=== PATIENT | male | born 1940 | race Caucasian/White ===

== ENCOUNTER 2018-09-25 16:58 | Emergency (ER) | payer MEDICARE, MEDICAID ==
[~2018-09-25] VITALS: Ht 182.9 cm; Wt 74.8 kg
--- NOTE | 2018-09-25 17:15 | NUR ---
[facility], SENT BY PMD TO EVALUATE MIDDLE CHEST OPEN WOUND- POSSIBLE CELLULITIS. TO ER BED 10, HOOKED TO MONITOR, PROVIDED W WARM BLANKET, AWAITING MD TALBOT.
[2018-09-25] MEDS ORDERED: AMIO100T4 PO (17:22)
[2018-09-25] MEDS ORDERED: MIRT15TA PO (17:22)
[2018-09-25] MEDS ORDERED: CLOP75TA15 PO (17:22)
[2018-09-25] MEDS ORDERED: NA P133E RC (17:22)
[2018-09-25] MEDS ORDERED: CRAN425C6 PO (17:22)
[2018-09-25] MEDS ORDERED: LEVO50TA8 PO (17:22)
[2018-09-25] MEDS ORDERED: ACET-2030 PO (17:22)
[2018-09-25] MEDS ORDERED: MULT-447 PO (17:22)
[2018-09-25] MEDS ORDERED: THIA100T88 PO (17:22)
[2018-09-25] MEDS ORDERED: LEVO25TA7 PO (17:22)
[2018-09-25] MEDS ORDERED: MAGN400O6 PO (17:22)
[2018-09-25] MEDS ORDERED: DEXT15DR6 OP (17:22)
[2018-09-25] MEDS ORDERED: ATOR40TA PO (17:22)
[2018-09-25] MEDS ORDERED: ASPI-605 PO (17:22)
[2018-09-25] MEDS ORDERED: BISA10SU61 RC (17:22)
[2018-09-25] MEDS ORDERED: DOCU100T2 PO (17:22)
[2018-09-25] MEDS ORDERED: TYL2T PO (17:22)
--- NOTE | 2018-09-25 17:28 | NUR ---
DR GOMEZ AT BEDSIDE
--- NOTE | 2018-09-25 18:10 | NUR ---
CALLED DR. GONGORA, NO ANSWER, LEFT MESSAGE ON VOICEMAIL
[2018-09-25 19:05] VITALS: BP 112/71
--- NOTE | 2018-09-25 19:20 | NUR ---
REPORT GIVEN TO LUZ ELENA TRAYLOR FOR NINO
--- NOTE | 2018-09-25 19:33 | NUR ---
CALLED JAYLENE FOR TRANSPORT BACK TO [facility], ETA 2130, TRIP #[id number]
--- NOTE | 2018-09-25 22:18 | NUR ---
REPORT GIVEN TO ROSIBEL NURSE AT [facility], PT LEFT VIA [facility], VSS, NAD NOTED, ALL PPW GIVEN TO AMBULANCE STAFF.
== END 2018-09-25 22:20 ==
LOC: ER 17:10
DX: S21.109A Unspecified open wound of unspecified front wall of thorax without penetration into thoracic cavity, initial encounter (principal); T84.9XXA Unspecified complication of internal orthopedic prosthetic device, implant and graft, initial encounter; F03.90 Unspecified dementia, unspecified severity, without behavioral disturbance, psychotic disturbance, mood disturbance, and anxiety; I10 Essential (primary) hypertension; I48.91 Unspecified atrial fibrillation; Z95.1 Presence of aortocoronary bypass graft; Z79.82 Long term (current) use of aspirin; X58.XXXA Exposure to other specified factors, initial encounter; Y93.89 Activity, other specified; Y92.89 Other specified places as the place of occurrence of the external cause; Y99.8 Other external cause status

== ENCOUNTER 2019-11-26 12:13 | Inpatient (IN) | payer MEDICARE, OTHER ==
[~2019-11-26] VITALS: Ht 180.3 cm; Wt 78.9 kg
[~2019-11-26 12:13] MED LIST: ACET-2030 PO; AMIO100T4 PO; ASPI-605 PO; ATOR40TA PO; BISA10SU61 RC; CLOP75TA15 PO; CRAN425C6 PO; DEXT15DR6 OP; DOCU100T2 PO; LEVO25TA7 PO; LEVO50TA8 PO; MAGN400O6 PO; MIRT15TA PO; MULT-447 PO; NA P133E RC; THIA100T88 PO; TYL2T PO
[2019-11-26] MEDS ORDERED: ACETAMINOPHEN 650 MG/SUPP.RECT RC ONE (12:52)
[2019-11-26 12:58] LABS: BASOPHILS % (AUTO) 0.1 % (0.0-2.0); HEMATOCRIT 42 % (39-51); HEMOGLOBIN 13.9 g/dL (13.5-17.5); LYMPHOCYTES # (AUTO) 0.4 /CMM (0.8-4.8); LYMPHOCYTES % (AUTO) 5.9 % (20.0-44.0); MEAN CORPUSCULAR HGB CONC 34 g/dl (31.0-36.0); MEAN CORPUSCULAR VOLUME 90 fL (80-96); MONOCYTES # (AUTO) 0.3 /CMM (0.1-1.30); MONOCYTES % (AUTO) 3.7 % (2.0-12.0); NEUTROPHILS # (AUTO) 6.2 /CMM (1.8-8.9); NEUTROPHILS % (AUTO) 90.3 % (43.0-81.0); PLATELET COUNT (AUTO) 110 /CMM (150-450); RED BLOOD CELL COUNT(AUTO) 4.64 MIL/uL (4.5-6.0); WHITE BLOOD COUNT (AUTO) 6.9 K/uL (4.3-11.0)
--- NOTE | 2019-11-26 13:01 | NUR ---
[facility]RA FROM SNF TO ER BED 5. AAOX1. BREATHING EVEN ADN UNLABORED BUT NOTED WITH 02 SAT @ 89% ON RA. PLACED ON O2 VIA NC @ 6LPM SATTING @ 96%. BEDBOUND. BROUGHT IN FOR FEVER AND SOB. RECTAL TEMP NOTED @ 103.9. WAS AT THE BEDSIDE FOR EVAL. ORDERS RECEIVED NOTED AND CARRIED OUT. IV LINE OBTAINED ON LFA 20G. BLOOD DRAWN AND SENT TO LAB.
[2019-11-26 13:14] LABS: ALANINE AMINOTRANSFERASE 27 U/L (12-78); ALBUMIN 3.3 g/dL (3.4-5.0); ALKALINE PHOSPHATASE 96 U/L (46-116); ASPARTATE AMINOTRANSFERASE 35 U/L (15-37); BILIRUBIN,DIRECT 0.3 mg/dL (0.0-0.2); BILIRUBIN,TOTAL 0.8 mg/dL (0.2-1.0); CALCIUM, SERUM 8.9 mg/dL (8.5-10.1); CARBON DIOXIDE 23 mmol/L (21-32); CHLORIDE 110 mmol/L (98-107); CREATININE 1.2 mg/dL (0.6-1.3); GLUCOSE 169 mg/dL (74-106); POTASSIUM 3.2 mmol/L (3.5-5.1); SODIUM SERUM 145 mmol/L (136-145); UREA NITROGEN, BLOOD 37 mg/dL (7-18)
[2019-11-26] MEDS ORDERED: PIPERACILLIN /TAZOBACTAM 3.375 G in IV D5W 50 ML IV ONE (13:30)
[2019-11-26] MEDS ORDERED: VANCOMYCIN 1 GM in IV D5W 250 ML IV ONE (13:30)
--- NOTE | 2019-11-26 13:41 | NUR ---
PAGED MENDOZA FOR DR. WHARTON
--- NOTE | 2019-11-26 13:48 | NUR ---
COVID SWAB DONE AND SENT TO LAB
--- NOTE | 2019-11-26 13:55 | NUR ---
NURSING NUCLEAR CONTROL ROOM OPERATOR CALLED, PT GOING TO [phone]
--- NOTE | 2019-11-26 14:00 | NUR ---
XRAY AT BEDSIDE
--- NOTE | 2019-11-26 14:27 | NUR ---
COVID TEST PCR GOING TO BED 101 TELE
[2019-11-26 14:33] LABS: BILIRUBIN,URINE MODERATE (NEGATIVE); BLOOD, URINE Large Ery/uL (NEGATIVE); COLOR,URINE Yellow (YELLOW); KETONES,URINE Trace (NEGATIVE); LEUKOCYTE ESTERASE ,URINE Small (NEGATIVE); NITRITE, URINE Negative (NEGATIVE); PH,URINE 8.5 (5.0-8.0); PROTEIN,URINE >=300 mg/dl (NEGATIVE); UGLUCOSE Negative (NEGATIVE)
[2019-11-26 14:37] LABS: APPEARANCE,URINE CLOUDY (CLEAR)
[2019-11-26 14:38] LABS: BACTERIA,URINE Many /HPF (None Seen); RBC,URINE 51-80 /HPF (0-2); SQUAMOUS EPITHELIAL CELL,UR Few /HPF (None Seen); WBC,URINE TOO NUMEROUS TO COUN /HPF (0-3)
--- NOTE | 2019-11-26 14:45 | NUR ---
REPORT GIVEN TO LAYTON GALARZA FOR NINO.
--- NOTE | 2019-11-26 14:54 | NUR ---
PT TRANPORTED TO UNIT ON [facility] WITH EMT AT RN AT BEDSIDE W/ ACLS PROTOCOL. NAD NOTED DURING TRANSPORT.
--- NOTE | 2019-11-26 15:00 | NUR ---
TELE EN NOTES RECEIVED PATIENT FROM ER WITH BP81/61, TEMP 99.2 O2 97% HR 89. ON 6 L NASAL CANNULA. NO SOB OR PAIN NOTED AT THIS MOMENT. ON ISOLATION POSSIBLE COVID-19( DROPLET). RIGHT HAND #18 SALINE CHACHO PATENT. CALL LIGHT WITHIN REACH BED AT THE LOWEST POSITION LOCKED. WILL CONTINUE TO MONITOR. Addendum: 11/26/19 at 1523 by HEAVEN LIMA RN SCRIBING MACHINE OPERATOR NOTES
--- NOTE | 2019-11-26 15:30 | NUR ---
CLOTH STRETCHER NOTES NOTED FISTULA ON RIGHT HAND.
[2019-11-26 16:00] VITALS: BP 107/60
[2019-11-26] MEDS ORDERED: ASCO-352 PO (16:36)
[2019-11-26] MEDS ORDERED: QUERCETIN PO (16:36)
[2019-11-26] MEDS ORDERED: CHOL100040 PO (16:36)
--- NOTE | 2019-11-26 16:47 | NUR ---
PILLOWCASE MAKER NOTES NOTIFIED DR WHARTON ABOUT THE BP LEVEL81/61. PER DR WHARTON GIVE NS 1L BOLUS.
[2019-11-26] MEDS ORDERED: IV NS 0.9% 1,000 ML IV ONE ×2 (17:00→17:30)
--- NOTE | 2019-11-26 17:24 | NUR ---
HYDROGEOLOGY PROFESSOR NOTES CALLED PHARMACY FOR IV BOLUS VERIFICATION AND THEY INFORMED WILL BE VERIFIED.
[2019-11-26] MEDS ORDERED: IV NS 0.9% 1,000 ML IV PRN (17:30)
--- NOTE | 2019-11-26 17:48 | NUR ---
MERCHANDISING SPECIALIST NOTES 1BAG OF NS 1000 ML/HR GIVEN TO THE PATIENT ONCE.
[2019-11-26] MEDS ORDERED: MAG HYDROX/AL HYDROX/SIMETH 30 ML UDC PO PRN (18:00)
[2019-11-26] MEDS ORDERED: ONDANSETRON HCL/PF 4 MG/2 ML VIAL IVP PRN (18:00)
[2019-11-26] MEDS ORDERED: MAGNESIUM HYDROXIDE 30 ML UDC PO PRN (18:00)
[2019-11-26] MEDS ORDERED: HYDROCODONE/APAP 5/325MG TABLET PO PRN (18:00)
[2019-11-26] MEDS ORDERED: ACETAMINOPHEN 325 MG TABLET PO PRN (18:00)
[2019-11-26] MEDS ORDERED: ZOLPIDEM TARTRATE 5 MG TABLET PO PRN (18:00)
[2019-11-26] MEDS ORDERED: Z GUARD REMEDY 2 OZ OINT TP PRN (18:00)
[2019-11-26] MEDS: ENOXAPARIN SODIUM 40 MG/0.4 ML DISP.SYRIN SQ SCH (18:07)
--- NOTE | 2019-11-26 18:47 | NUR ---
RN CARDIAC NOTES CRITICAL LAB LACTIC ACID NOTIFIED DR WHARTON ABOUT LACTIC ACID OF 2.5 REPORTED BY LAB.
--- NOTE | 2019-11-26 18:53 | NUR ---
SWIMMING POOL INSTALLER AND SERVICER NOTES DR WHARTON AWARE OF CRITICAL LACTIC ACID OF 2.5.
--- NOTE | 2019-11-26 18:56 | NUR ---
COMMERCIAL LOAN REVIEWER NOTES PATIENT IN BED COMFORTABLE CONFUSED. ON PENDING COVID DROPLET ISOLATION. NS 1000 ML BOLUS GIVEN FOR HYPOTENSION. CALLED SON JAYMIE AND UPDATED HER ABOUT HIS STATUES. IV SITE PATENT. NO SOB OR DISCOMFORT AT THIS TIME. CALL LIGHT WITHIN REACH. REPORT GIVEN TO AERIAL PLANTING AND CULTIVATION MANAGER NURSE FOR NINO.
--- NOTE | 2019-11-26 19:50 | NUR ---
RN OPENING NOTE RECEIVED PATIENT IN BED RESTING EYE CLOSED CONFUSED ON PENDING FOR COVID 19 TEST,ON 6L OXYGEN VIA NASAL CANNULA, O2:96% NO SOB NOT ACUTE DISTRESS AT THIS TIME,IV SITE IS ON LEFT ARM AND LEFT HAND INTACT PATENT,IMPALEMENT SAFETY MEASURE,BED ALARM IS ON,BED IN LOW POSITION,SPOKE WITH SON JAYMIE UPDATED HIS STATUS CONTINUE TO MONITOR
[2019-11-26 20:00] VITALS: BP 115/63
[2019-11-26] MEDS: MEROPENEM 500 MG in IV NS 0.9% 50 ML IV SCH (21:08)
[2019-11-27] VITALS: BP 112/60
[2019-11-27] MEDS: VANCOMYCIN 1 GM in IV D5W 250 ML IV SCH ×2 (01:49→14:15)
[2019-11-27 04:00] VITALS: BP 103/60
--- NOTE | 2019-11-27 04:00 | NUR ---
RN NOTE TITRATED OXYGEN TO 5L/MIN VIA NASAL CANNULA 02:95% CONTINUE TO MONITOR.
[2019-11-27] MEDS: MEROPENEM 500 MG in IV NS 0.9% 50 ML IV SCH ×3 (04:19→21:10)
[2019-11-27 06:24] LABS: BASOPHILS % (AUTO) 0.6 % (0.0-2.0); HEMATOCRIT 38 % (39-51); HEMOGLOBIN 12.6 g/dL (13.5-17.5); LYMPHOCYTES # (AUTO) 0.6 /CMM (0.8-4.8); LYMPHOCYTES % (AUTO) 12.6 % (20.0-44.0); MEAN CORPUSCULAR HGB CONC 33 g/dl (31.0-36.0); MEAN CORPUSCULAR VOLUME 90 fL (80-96); MONOCYTES # (AUTO) 0.4 /CMM (0.1-1.30); MONOCYTES % (AUTO) 7.7 % (2.0-12.0); NEUTROPHILS # (AUTO) 3.9 /CMM (1.8-8.9); NEUTROPHILS % (AUTO) 79.1 % (43.0-81.0); PLATELET COUNT (AUTO) 95 /CMM (150-450); RED BLOOD CELL COUNT(AUTO) 4.24 MIL/uL (4.5-6.0); WHITE BLOOD COUNT (AUTO) 4.9 K/uL (4.3-11.0)
--- NOTE | 2019-11-27 06:48 | NUR ---
RN CLOSING NOTE PATIENT REMAINS ON ALERT CONFUSED,DNR,ON 5L OXYGEN VIA NASAL CANNULA O2:96% NO SOB NOT ACUTE DISTRESS NOTED ON R/O FOR COVID RESULT STILL PENDING IV SITE IS ON LEFT HAND AND LEFT FOREARM INTACT PATENT,ALL DUE MEDS GIVEN MD ORDERED,KEPT CLEAN AND DRY ALL THE TIME,ENDORSE NEXT COMING SHIFT FOR CONTINUATION OF CARE.
[2019-11-27 07:04] LABS: CALCIUM, SERUM 8.4 mg/dL (8.5-10.1); MAGNESIUM 2.3 mg/dL (1.8-2.4); PHOSPHORUS 2.8 mg/dL (2.5-4.9); POTASSIUM 3.2 mmol/L (3.5-5.1); THYROID STIMULATING HORMONE 1.353 uIU/mL (0.358-3.74)
--- NOTE | 2019-11-27 07:30 | NUR ---
TELE/RN OPENING NOTES Patient resting in bed, A&O 1, confused, frequently reoriented. No s/s of pain/discomfort at this time. Breathing even and non-labored on 5L via NC. No respiratory or cardiac distress noted. On tele monitor, reading SR 74. IV access noted on L hand #22 gauge and L forearm #18 gauge, both patent and intact, and flushing well. No s/s of infiltration, bleeding, or infection noted on both sites. Sensation from all peripheral extremities intact. Fall precautions maintained. Will continue to monitor patient throughout shift.
[2019-11-27 08:00] VITALS: BP 98/51
[2019-11-27] MEDS: ASPIRIN 81 MG TAB.CHEW PO SCH (08:11)
[2019-11-27] MEDS: PANTOPRAZOLE 40 MG TABLET.DR PO SCH (08:11)
--- NOTE | 2019-11-27 09:04 | NUR ---
WOUND CARE CONSULT: REVIEWED CHART, NURSING DOCUMENTATION AND PHOTOS WHICH INDICATE REDNESS TO PERINEAL AREA, MULTIPLE AREAS OF DISCOLORATION, PRESENT ON ADMISSION. CURRENT HENRIK SCORE IS 13. RECOMMENDATIONS MADE FOR SKIN PROTECTION. DISCUSSED WITH NURSING STAFF. PT IS INCONTINENT. WILL SEE PRN. Kamala Beltran IN AGREEMENT WITH PLAN OF CARE. Addendum: 11/27/19 at 0908 by ANTOINE BAUER WNDNU PT IS ON [facility].
[2019-11-27] MEDS: POTASSIUM CHLORIDE 20 MEQ TAB.PRT.SR PO SCH ×2 (10:12→11:05)
[2019-11-27] MEDS: DEXAMETHASONE SOD PHOSPHATE 10 MG/ML VIAL IV SCH (11:06)
[2019-11-27 12:00] VITALS: BP 94/53
--- NOTE | 2019-11-27 12:35 | NUR ---
TELE/RN NOTES Justin RN called, stating patient is positive for covid. Notified Dr. Robb.
--- NOTE | 2019-11-27 12:51 | NUR ---
relayed to dr. lane and oneyda patient covid positive no new orders.
[2019-11-27 16:00] VITALS: BP 102/59
[2019-11-27] MEDS: CLOTRIMAZOLE 1% 15 GM TUBE TP SCH (16:06)
--- NOTE | 2019-11-27 18:19 | NUR ---
TELE/RN CLOSING NOTES Patient resting in bed and remained stable throughout shift, A&O x 1, afebrile, no respiratory distress noted. Tolerating supplemental oxygen via NC at 5 L, saturating at 94-97%. On tele monitor, reading SR 81. No cardiac distress noted. No complaints of pain and discomfort throughout shift. IV accesses on R hand #22 and R FA #18 remain patent and intact, and flushing well. No s/s of infection, bleeding, infiltration noted on sites. YVON fistula noted. Condom cath in place, draining leonardo urine well. Sensation from all peripheral extremities intact. Fall precautions maintained. Will endorse to maintenance technician 2nd shift nurse.
[2019-11-27] MEDS ORDERED: PIPERACILLIN /TAZOBACTAM 3.375 G in IV D5W 50 ML IV SCH (18:30)
--- NOTE | 2019-11-27 19:46 | NUR ---
RN OPENING NOTES PATIENT RECEIVED RESTING IN BED A/O X 1, CONFUSED. ON 4L OF O2 WITH BREATHING EVEN AND UNLABORED, NO SOB NOTED O2 SAT 95%. NO SIGNS OF ACUTE DISTRESS. NO COMPLAINTS OF PAIN OR DISCOMFORT- NO FACIAL GRIMACING NOTED. CONDOM CATH NOTED AND IN PLACE DRAINING URINE. IV LOCATED ON L HAND #22 AND L FA #18. SAFETY PRECAUTIONS IN PLACE WITH BED IN LOWEST POSITION, CALL LIGHT WITHIN REACH, BREAKS ON, SIDE RAILS UP. WILL CONTINUE TO MONITOR THROUGHOUT THE NIGHT,
[2019-11-27 20:00] VITALS: BP 80/50
[2019-11-27] MEDS ORDERED: IV NS 0.9% 1,000 ML IV ONE (21:00)
--- NOTE | 2019-11-27 21:05 | NUR ---
RN NOTES PATIENTS BP 80/50, RECHECKED BP USING MANUAL BP CUFF. R ARM 75/45 L ARM 78/50. CONTACTED MD WOLF AND ORDERED 1L OF NS 57ML/HR ONCE. ORDERS CARRIED OUT. WILL CONTINUE TO MONITOR THROUGHOUT THE SHIFT.
[2019-11-27] MEDS: ENOXAPARIN SODIUM 40 MG/0.4 ML DISP.SYRIN SQ SCH (21:08)
--- NOTE | 2019-11-27 21:29 | NUR ---
RN NOTES SPOKE TO LIBORIO COON ON THE PHONE ABOUT PATIENT CONDITION. WOULD LIKE TO SPEAK TO MD. WILL ENDORSE TO AM SHIFT.
[2019-11-28] VITALS: BP 92/52
[2019-11-28] MEDS: VANCOMYCIN 1 GM in IV D5W 250 ML IV SCH ×2 (02:18→14:12)
--- NOTE | 2019-11-28 02:40 | NUR ---
0240 DR WOLF MADE AWARE OF CRITICAL PRELIMINARY BLOOD CULTURE RESULT WITH NO ORDER MADE.
[2019-11-28 04:00] VITALS: BP 107/56
[2019-11-28] MEDS: MEROPENEM 500 MG in IV NS 0.9% 50 ML IV SCH ×3 (05:10→21:12)
[2019-11-28 06:32] LABS: BASOPHILS % (AUTO) 0.7 % (0.0-2.0); EOSINOPHILS % (AUTO) 0.1 % (0.0-6.0); HEMATOCRIT 38 % (39-51); HEMOGLOBIN 12.3 g/dL (13.5-17.5); LYMPHOCYTES # (AUTO) 0.7 /CMM (0.8-4.8); LYMPHOCYTES % (AUTO) 20.6 % (20.0-44.0); MEAN CORPUSCULAR HGB CONC 33 g/dl (31.0-36.0); MEAN CORPUSCULAR VOLUME 91 fL (80-96); MONOCYTES # (AUTO) 0.4 /CMM (0.1-1.30); MONOCYTES % (AUTO) 11.9 % (2.0-12.0); NEUTROPHILS # (AUTO) 2.2 /CMM (1.8-8.9); NEUTROPHILS % (AUTO) 66.7 % (43.0-81.0); PLATELET COUNT (AUTO) 105 /CMM (150-450); RED BLOOD CELL COUNT(AUTO) 4.13 MIL/uL (4.5-6.0); WHITE BLOOD COUNT (AUTO) 3.3 K/uL (4.3-11.0)
--- NOTE | 2019-11-28 06:41 | NUR ---
RN CLOSING NOTES PATIENT RECEIVED RESTING IN BED A/O X 1, CONFUSED. ON STABLE ON RA WITH BREATHING EVEN AND UNLABORED, NO SOB NOTED O2 SAT 94%. NO SIGNS OF ACUTE DISTRESS. NO COMPLAINTS OF PAIN OR DISCOMFORT- NO FACIAL GRIMACING NOTED. CONDOM CATH NOTED AND IN PLACE DRAINING URINE. IV LOCATED ON L HAND #22 AND L FA #18 RUNNING NS @ 75 ML/HR. SAFETY PRECAUTIONS IN PLACE WITH BED IN LOWEST POSITION, CALL LIGHT WITHIN REACH, BREAKS ON, SIDE RAILS UP. ALL NEEDS ATTENDED TO, PATIENT WAS KEPT CLEAN AND DRY. WILL ENDORSE TO ONCOMING SHIFT ABOUT NINO.
[2019-11-28 06:45] LABS: CALCIUM, SERUM 8.7 mg/dL (8.5-10.1); CREATININE 0.9 mg/dL (0.6-1.3); POTASSIUM 3.8 mmol/L (3.5-5.1)
[2019-11-28] MEDS ORDERED: IV D5/0.45 NACL 1,000 ML IV PRN (07:23)
--- NOTE | 2019-11-28 07:30 | NUR ---
RN TAMMIE Patient received alert oriented x 4, yemeni speaking only. Counter Intelligence Technician provided during care. No acute distress noted. Kern catheter in place intact and draining to gravity. IV site on right antecubital intact and infusing well. On room ar with O2 sat 95%. Pt on tele monitor with sinus rhythm noted. No complain of pain or discomfort at this time. All needs will be anticipated and provided to. Will keep safe and comfortable. Will continue to monitor. Addendum: 11/28/19 at 1901 by DOMONIQUE REYES RN RN TAMMIE CLARIFICATION OF DOCUMENTATION Received pt alert, oriented x 1, with episodes of confusion. Not in any acute distress at this time. On condom catheter intact and draining well by gravity. Will keep safe and comfortable. IV site on left hand and forearm intact and infusing well. All needs will be anticipated and provided to. Will continue to monitor.
[2019-11-28 08:00] VITALS: BP 103/58
[2019-11-28] MEDS: ASPIRIN 81 MG TAB.CHEW PO SCH (08:06)
[2019-11-28] MEDS: PANTOPRAZOLE 40 MG TABLET.DR PO SCH (08:06)
[2019-11-28] MEDS: DEXAMETHASONE SOD PHOSPHATE 10 MG/ML VIAL IV SCH (08:07)
[2019-11-28] MEDS: CLOTRIMAZOLE 1% 15 GM TUBE TP SCH ×2 (08:08→12:46)
[2019-11-28] MEDS: DOCUSATE SODIUM 100 MG CAPSULE PO SCH ×2 (10:33→16:37)
[2019-11-28] MEDS: THIAMINE HCL 100 MG TABLET PO SCH (10:33)
[2019-11-28] MEDS: MULTIVITAMINS,THERAGRAN 1 UDTAB TABLET PO SCH (10:33)
[2019-11-28] MEDS: CHOLECALCIFEROL 1,000 UNIT TABLET (VIT D3) PO SCH (10:33)
[2019-11-28] MEDS: AMIODARONE HCL 200 MG TABLET PO SCH (10:34)
[2019-11-28 12:00] VITALS: BP 105/67
[2019-11-28] MEDS: POLYVINYL ALCOHOL 15 ML BOTTLE EACHEYE SCH ×2 (12:46→21:25)
[2019-11-28 16:00] VITALS: BP 103/58
--- NOTE | 2019-11-28 18:52 | NUR ---
RN/TAMMIE Patient in bed. No acute distress noted. Patient on room air, saturating well at 94%. Patient on hall monitor, sinus rhythm noted. Condom catheter in place intact and draining to gravity. IV site on right antecubital intact and infusing well. Patient safety maintained. Call light within reach. Will endorse plan of care to oncoming nurse for continuity of care
--- NOTE | 2019-11-28 19:35 | NUR ---
TELE 1 RN NOTE RECEIVED PATIENT IN BED. ALERT AND ORIENTED X1. PATIENT HAS PERIODS OF CONFUSION, TALKING TO SELF AT TIMES. COME IN QUIET ON BED. FALL RISK. FALL PRECAUTIONS OBSERVED. BED ALARM ON, BED ON LOWEST POSITION AND LOCKED. FREQUENT ROUNDINGS INITIATED FOR SAFETY. ISOLATION PRECAUTIONS FOR POSITIVE COVID 19. ON IVF INFUSING AT 50CC PER HOUR ON LEFT FOREARM VIA IV PUMP. NO SIGNS AND SYMPTOMS OF INFILTRATION NOTED. CALL LIGHT WITHIN REACH. NEEDS ANTICIPATED.
[2019-11-28 20:00] VITALS: BP 103/45
[2019-11-28] MEDS: ENOXAPARIN SODIUM 40 MG/0.4 ML DISP.SYRIN SQ SCH (21:14)
[2019-11-28] MEDS: MIRTAZAPINE 15 MG TABLET PO SCH (22:11)
[2019-11-28] MEDS: ATORVASTATIN 40 MG TABLET PO SCH (22:11)
[2019-11-29] VITALS: BP 103/57
--- NOTE | 2019-11-29 01:00 | NUR ---
TELE1 RN NOTES SOUND ASLEEP,KEPT WARM AND COMFORTABLE.
[2019-11-29] MEDS: VANCOMYCIN 1 GM in IV D5W 250 ML IV SCH ×2 (01:26→13:33)
[2019-11-29 04:10] VITALS: BP 97/55
[2019-11-29] MEDS: POLYVINYL ALCOHOL 15 ML BOTTLE EACHEYE SCH ×3 (04:45→21:13)
[2019-11-29] MEDS: MEROPENEM 500 MG in IV NS 0.9% 50 ML IV SCH ×2 (04:45→13:16)
--- NOTE | 2019-11-29 06:14 | NUR ---
TELE 1 RN NOTE PATIENT IS RESTING COMFORTABLY IN BED. NO SOB, PT IS AFEBRILE. CONDOM CATH DRAINS WELL. REMAINS CALM AND QUIET IN BED. ABX INFUSED, NO ADVERSE REACTION NOTED. STILL HAS EPISODES OF CONFUSION, NEEDS FREQUENT REORIENTATION. CALL LIGHT WITHIN REACH. BED IS LOCKED AND IN LOWEST POSITION WITH BED ALARM ON. NEEDS ATTENDED.
[2019-11-29 07:15] LABS: BASOPHILS % (AUTO) 0.1 % (0.0-2.0); HEMATOCRIT 28 % (39-51); LYMPHOCYTES # (AUTO) 0.8 /CMM (0.8-4.8); LYMPHOCYTES % (AUTO) 20.8 % (20.0-44.0); MEAN CORPUSCULAR HGB CONC 32 g/dl (31.0-36.0); MEAN CORPUSCULAR VOLUME 91 fL (80-96); MONOCYTES # (AUTO) 0.5 /CMM (0.1-1.30); MONOCYTES % (AUTO) 13.1 % (2.0-12.0); NEUTROPHILS # (AUTO) 2.4 /CMM (1.8-8.9); PLATELET COUNT (AUTO) 92 /CMM (150-450); RED BLOOD CELL COUNT(AUTO) 3.05 MIL/uL (4.5-6.0); WHITE BLOOD COUNT (AUTO) 3.7 K/uL (4.3-11.0)
[2019-11-29 07:21] LABS: CREATININE 0.6 mg/dL (0.6-1.3)
--- NOTE | 2019-11-29 07:30 | NUR ---
Received patient in stable condition on O2 3L via NC. Patient is confused at base line. Will continue to monitor
[2019-11-29 07:38] LABS: CALCIUM, SERUM 5.8 mg/dL (8.5-10.1); POTASSIUM 2.7 mmol/L (3.5-5.1)
[2019-11-29 08:00] VITALS: BP 130/72
[2019-11-29] MEDS ORDERED: Potassium Chloride 20 MEQ in IV D5W 1,000 ML IV ONE (08:00)
[2019-11-29] MEDS: ASCORBIC ACID 500 MG TABLET PO SCH (08:19)
[2019-11-29] MEDS: CHOLECALCIFEROL 1,000 UNIT TABLET (VIT D3) PO SCH (08:19)
[2019-11-29] MEDS: THIAMINE HCL 100 MG TABLET PO SCH (08:19)
[2019-11-29] MEDS: LEVOTHYROXINE SODIUM 50 MCG TABLET PO SCH (08:20)
[2019-11-29] MEDS: AMIODARONE HCL 200 MG TABLET PO SCH (08:20)
[2019-11-29] MEDS: DOCUSATE SODIUM 100 MG CAPSULE PO SCH ×2 (08:20→17:42)
[2019-11-29] MEDS: DEXAMETHASONE SOD PHOSPHATE 10 MG/ML VIAL IV SCH (08:20)
[2019-11-29] MEDS: MULTIVITAMINS,THERAGRAN 1 UDTAB TABLET PO SCH (08:20)
[2019-11-29] MEDS: PANTOPRAZOLE 40 MG TABLET.DR PO SCH (08:20)
[2019-11-29] MEDS: POTASSIUM CL. PREMIX PERIPHER. 50 ML IV SCH ×6 (08:26→16:12)
[2019-11-29] MEDS ORDERED: Medication Not On Formulary EA (Cranberry Extract (Cranberry) 850 MG) PO SCH (09:00)
[2019-11-29] MEDS ORDERED: ASPIRIN 81 MG TAB.CHEW PO SCH (09:00)
[2019-11-29] MEDS ORDERED: CLOPIDOGREL BISULFATE 75 MG TABLET PO SCH ×2 (09:00)
[2019-11-29] MEDS: CLOTRIMAZOLE 1% 15 GM TUBE TP SCH ×2 (09:48→17:42)
[2019-11-29] MEDS ORDERED: POTASSIUM CL. PREMIX PERIPHER. 50 ML IV SCH (10:00)
[2019-11-29] MEDS ORDERED: Potassium Chloride 20 MEQ in IV D5W 1,000 ML IV SCH (11:30)
[2019-11-29 12:00] VITALS: BP 124/70
--- NOTE | 2019-11-29 15:00 | NUR ---
O2 tartrated to 2.5 L. Patient tolerated well .
[2019-11-29 16:00] VITALS: BP 123/69
[2019-11-29 18:45] LABS: HEMOGLOBIN 12.8 g/dL (13.5-17.5)
--- NOTE | 2019-11-29 18:48 | NUR ---
Patient awake , sitting in bed with no distress noted. On O2 2.5 L via Nasal canula. Low potassium level of 2.7 replaced as ordered. IV lines intact and patent and Potassium/D5W infusing as ordered. Patient kept clean and dry , turned and reposition Q2 hr. Condom cath in place; 850 ml clear yellow urine output. Patient noted with increased appetite. All needs attende. Will endorse to next shift for NINO
--- NOTE | 2019-11-29 19:45 | NUR ---
TELE1 RN NOTES RECEIVED ON BED A/O X1,CONFUSED,TALKING TO SELF AT TIMES.BREATHING REGULAR,NOT IN ANY FORM OF DISTRESS.O2 SAT 98% ON 2.5L,SALINE LOCK LEFT FOREARM INTACT AND PATENT.WITH CONDOM CATH IN PLACE DRAINING YELLOWISH OUTPUT.ISOLATION PRECAUTION FOR COVID POSITIVE ON 11/25.PRESENT IVF WITH POTASSIUM INFUSING WELL X 1 LITER.REPOSITION PER PROTOCOL.WILL CONTINUE TO MONITOR STATUS.DNR STATUS.
[2019-11-29] MEDS: CEFTRIAXONE 1 G in IV D5W 50 ML IV SCH (19:50)
[2019-11-29 20:00] VITALS: BP 103/71
--- NOTE | 2019-11-29 20:00 | NUR ---
TELE1 RN NOTES STARTED ON ROCEPHINE 1GM IVPB FOR UTI WITH ORDER.
[2019-11-29] MEDS ORDERED: ENOXAPARIN SODIUM 40 MG/0.4 ML DISP.SYRIN SQ SCH (21:00)
[2019-11-29] MEDS: MIRTAZAPINE 15 MG TABLET PO SCH (21:13)
[2019-11-29] MEDS: ATORVASTATIN 40 MG TABLET PO SCH (21:13)
--- NOTE | 2019-11-29 22:00 | NUR ---
TELE1 RN NOTES SON NAME JAYMIE CALLED,MADE UPDATE WITH PATIENT STATUS.
[2019-11-30] VITALS: BP 109/70
[2019-11-30] MEDS: VANCOMYCIN 1 GM in IV D5W 250 ML IV SCH ×2 (02:37→14:33)
[2019-11-30] MEDS: POLYVINYL ALCOHOL 15 ML BOTTLE EACHEYE SCH ×3 (04:48→22:36)
[2019-11-30 04:56] VITALS: BP 108/56
[2019-11-30 06:24] LABS: HEMATOCRIT 34 % (39-51); HEMOGLOBIN 10.9 g/dL (13.5-17.5); LYMPHOCYTES # (AUTO) 0.5 /CMM (0.8-4.8); LYMPHOCYTES % (AUTO) 9.2 % (20.0-44.0); MEAN CORPUSCULAR HGB CONC 32 g/dl (31.0-36.0); MEAN CORPUSCULAR VOLUME 93 fL (80-96); MONOCYTES # (AUTO) 0.5 /CMM (0.1-1.30); MONOCYTES % (AUTO) 9.5 % (2.0-12.0); NEUTROPHILS # (AUTO) 4.5 /CMM (1.8-8.9); NEUTROPHILS % (AUTO) 81.3 % (43.0-81.0); PLATELET COUNT (AUTO) 125 /CMM (150-450); RED BLOOD CELL COUNT(AUTO) 3.64 MIL/uL (4.5-6.0); WHITE BLOOD COUNT (AUTO) 5.6 K/uL (4.3-11.0)
--- NOTE | 2019-11-30 06:38 | NUR ---
WARD ATTENDANT NOTES MORNING CARE RENDERED BY LATRELL FINCH TOLERATED WELL.IVF INFUSING WELL AT 50ML/HR RATE,TO CONSUME,IN NO ACUTE DISTRESS.WILL ENDORSE TO DAY NURSE FOR NINO.
--- NOTE | 2019-11-30 07:30 | NUR ---
RN OPENING NOTE: Received patient in bed and asleep. Isolation precautions in place for covid. On cont. o2 via NC @ 2.5lpm and being tolerated well, saturation at 94%. No SOB and not in respiratory distress. Tele monitor showing sinus rhythm @ 70s. IV site clean, dry, patent and intact. No pain noted on patient. Condom catheter in place and draining yellow urine. Call light in reach. Bed locked, low and at semi-church's position. Side rails up x3. Safety ensured and observed. Will continue to monitor.
[2019-11-30 08:00] VITALS: BP 110/64
[2019-11-30] MEDS: LEVOTHYROXINE SODIUM 50 MCG TABLET PO SCH (08:20)
[2019-11-30] MEDS: PANTOPRAZOLE 40 MG TABLET.DR PO SCH (08:20)
[2019-11-30 08:35] LABS: ABG BASE EXCESS -3.5 mmol/L; ABG PCO2 21.9 mmHg (35.0-45.0); ABG PH 7.522 (7.350-7.450); ABG PO2 86.4 mmHg (75.0-100.0); AaDO2 87.4 mmHg; COHb 0.2 % (0.5-1.5); MetHb 0.3 % (0.0-1.5); O2Hb 96.5 % (94.0-97.0); SITE, ABG Right Radial; VENT MODE, BG NC 2 L
[2019-11-30] MEDS: THIAMINE HCL 100 MG TABLET PO SCH (09:16)
[2019-11-30] MEDS: ASCORBIC ACID 500 MG TABLET PO SCH (09:16)
[2019-11-30] MEDS: AMIODARONE HCL 200 MG TABLET PO SCH (09:16)
[2019-11-30] MEDS: MULTIVITAMINS,THERAGRAN 1 UDTAB TABLET PO SCH (09:16)
[2019-11-30] MEDS: DOCUSATE SODIUM 100 MG CAPSULE PO SCH ×2 (09:16→16:59)
[2019-11-30] MEDS: CHOLECALCIFEROL 1,000 UNIT TABLET (VIT D3) PO SCH (09:16)
[2019-11-30] MEDS: DEXAMETHASONE SOD PHOSPHATE 10 MG/ML VIAL IV SCH (09:17)
[2019-11-30] MEDS: CLOTRIMAZOLE 1% 15 GM TUBE TP SCH ×2 (09:17→17:25)
[2019-11-30 09:40] LABS: CALCIUM, SERUM 8.5 mg/dL (8.5-10.1); CREATININE 0.8 mg/dL (0.6-1.3); POTASSIUM 4.5 mmol/L (3.5-5.1)
[2019-11-30 12:00] VITALS: BP 112/76
[2019-11-30 16:00] VITALS: BP 91/62
--- NOTE | 2019-11-30 19:20 | NUR ---
RN CLOSING NOTE: Patient remains in bed and asleep. Isolation precautions in place for covid. On cont. o2 via NC @ 2.5lpm and being tolerated well, saturation at 96%. No SOB and not in respiratory distress. Tele monitor showing sinus rhythm @ 60s. IV site clean, dry, patent and intact. No pain noted on patient. Condom catheter in place and draining yellow urine. Call light in reach. Bed locked, low and at semi-church's position. Side rails up x3. Safety ensured and observed. Endorsed to oncoming shift for NINO.
[2019-11-30] MEDS: CEFTRIAXONE 1 G in IV D5W 50 ML IV SCH (19:30)
[2019-11-30 20:00] VITALS: BP 97/58
[2019-11-30] MEDS: MIRTAZAPINE 15 MG TABLET PO SCH (22:36)
[2019-11-30] MEDS: ATORVASTATIN 40 MG TABLET PO SCH (22:36)
[2019-12-01] VITALS: BP 110/67
[2019-12-01 04:00] VITALS: BP 101/62
[2019-12-01] MEDS: POLYVINYL ALCOHOL 15 ML BOTTLE EACHEYE SCH ×3 (04:27→20:15)
--- NOTE | 2019-12-01 06:39 | NUR ---
RN NOTE NO ACUTE CHANGES OBSERVED OVERNIGHT. ALL NEEDS MET AND ATTENDED TO. SAFETY MEASURES IN PLACE. WILL ENDORSE TO MORNING RN FOR CONTINUATION OF CARE.
--- NOTE | 2019-12-01 07:15 | NUR ---
RN OPENING NOTE: Received patient in bed and asleep. Isolation precautions in place for covid. On cont. o2 via NC @ 2.5lpm and being tolerated well, saturation at 97%. No SOB and not in respiratory distress. Tele monitor showing sinus rhythm in the 60s. IV site clean, dry, patent and intact. No pain noted on patient. Condom catheter in place and draining yellow urine. Call light in reach. Bed locked, low and at semi-church's position. Side rails up x3. Safety ensured and observed. Will continue to monitor.
[2019-12-01 07:22] LABS: BASOPHILS % (AUTO) 0.1 % (0.0-2.0); HEMATOCRIT 37 % (39-51); LYMPHOCYTES # (AUTO) 0.9 /CMM (0.8-4.8); LYMPHOCYTES % (AUTO) 9.7 % (20.0-44.0); MEAN CORPUSCULAR HGB CONC 32 g/dl (31.0-36.0); MEAN CORPUSCULAR VOLUME 92 fL (80-96); MONOCYTES # (AUTO) 0.5 /CMM (0.1-1.30); MONOCYTES % (AUTO) 5.9 % (2.0-12.0); NEUTROPHILS # (AUTO) 7.7 /CMM (1.8-8.9); NEUTROPHILS % (AUTO) 84.3 % (43.0-81.0); PLATELET COUNT (AUTO) 135 /CMM (150-450); RED BLOOD CELL COUNT(AUTO) 4.05 MIL/uL (4.5-6.0); WHITE BLOOD COUNT (AUTO) 9.1 K/uL (4.3-11.0)
[2019-12-01 07:27] LABS: CALCIUM, SERUM 8.1 mg/dL (8.5-10.1); CREATININE 0.7 mg/dL (0.6-1.3); MAGNESIUM 2.2 mg/dL (1.8-2.4); PHOSPHORUS 3.5 mg/dL (2.5-4.9); POTASSIUM 4.3 mmol/L (3.5-5.1)
[2019-12-01 08:00] VITALS: BP 100/62
[2019-12-01] MEDS: ASCORBIC ACID 500 MG TABLET PO SCH (08:27)
[2019-12-01] MEDS: LEVOTHYROXINE SODIUM 50 MCG TABLET PO SCH (08:27)
[2019-12-01] MEDS: AMIODARONE HCL 200 MG TABLET PO SCH (08:27)
[2019-12-01] MEDS: PANTOPRAZOLE 40 MG TABLET.DR PO SCH (08:27)
[2019-12-01] MEDS: CHOLECALCIFEROL 1,000 UNIT TABLET (VIT D3) PO SCH (08:27)
[2019-12-01] MEDS: MULTIVITAMINS,THERAGRAN 1 UDTAB TABLET PO SCH (08:27)
[2019-12-01] MEDS: DEXAMETHASONE SOD PHOSPHATE 10 MG/ML VIAL IV SCH (08:27)
[2019-12-01] MEDS: THIAMINE HCL 100 MG TABLET PO SCH (08:27)
[2019-12-01] MEDS: DOCUSATE SODIUM 100 MG CAPSULE PO SCH ×2 (08:27→16:43)
[2019-12-01 12:00] VITALS: BP 129/72
[2019-12-01] MEDS: CLOTRIMAZOLE 1% 15 GM TUBE TP SCH ×2 (13:18→16:43)
[2019-12-01 15:57] LABS: C-REACTIVE PROTEIN 1.4 mg/dL (0.0-0.9)
[2019-12-01 16:00] VITALS: BP 104/56
--- NOTE | 2019-12-01 19:05 | NUR ---
RN OPENING NOTES: PATIENT IN BED, AWAKE, AND VERBALLY RESPONSIVE. AAOX1 WITH CONFUSION. ON O2 AT 3 LPM, TOLERATING WELL, O2 SAT >95%. ON SCALEHOUSE ATTENDANT, SHOWING NSR WITH OCCASIONAL PVCs; ASYMPTOMATIC. CONDOM CATH IN PLACE; PATENT AND DRAINING CLEAR YELLOW URINE. PATIENT HAS LEFT HAND G18; C/D/I AND FLUSHING WELL. TKO. CALL LIGHT WITHIN REACH. SAFETY PRECAUTIONS IMPLEMENTED. BED LOCKED, ALARM ON, LOW POSITION. HOB ELEVATED. BILATERAL SIDE RAILS X 3 UP. WILL CONT. TO MONITOR.
--- NOTE | 2019-12-01 19:23 | NUR ---
RN CLOSING NOTE: Patient remains in bed and asleep. Isolation precautions in place for covid. On cont. o2 via NC @ 2.5lpm and being tolerated well, saturation at 98%. No SOB and not in respiratory distress. Tele monitor showing sinus rhythm @ 60s. IV site clean, dry, patent and intact. No pain noted on patient. Condom catheter in place and draining yellow urine. Call light in reach. Bed locked, low and at semi-church's position. Side rails up x3. Safety ensured and observed. Endorsed to oncoming shift for NINO.
[2019-12-01 20:00] VITALS: BP 106/61
[2019-12-01] MEDS: CEFTRIAXONE 1 G in IV D5W 50 ML IV SCH (20:18)
[2019-12-01] MEDS: ATORVASTATIN 40 MG TABLET PO SCH (21:38)
[2019-12-01] MEDS: MIRTAZAPINE 15 MG TABLET PO SCH (21:38)
[2019-12-02] VITALS: BP 98/62
[2019-12-02 04:00] VITALS: BP 101/65
[2019-12-02] MEDS: POLYVINYL ALCOHOL 15 ML BOTTLE EACHEYE SCH ×3 (05:46→21:04)
--- NOTE | 2019-12-02 06:51 | NUR ---
RN CLOSING NOTES: PATIENT IN BED, ASLEEP, EASILY AROUSABLE. REMAINS ON O2 AT 2LPM VIA NC; SPO2 >95%. BREATHING UNLABORED. AFEBRILE THROUGHOUT SHIFT. STABLE CONDITION. ENDORSE TO AM RN FOR CONTINUITY OF CARE.
--- NOTE | 2019-12-02 07:39 | NUR ---
RADIO MECHANIC/TAMMIE OPENING NOTE RECEIVED PT IN BED AWAKE, ALERT AND ORIENTED X1 WITH CONFUSTION. PT IS DNR. PT IS ON TELE MONITORING WITH NORMAL SINUS RHYTHM HR 72 AT THIS MOMENT. PT IS INCONTINENT WITH A CONDOM CATHETER THAT IS INTACT. PT IS ON BED REST WITH PERINEAL REDNESS NOTED. PT IS ON A SOFT DIET. PT HAD A LEFT HAND 18' INTACT, PATENT AND FLUSHING WELL. PT ALSO HAS A RIGHT UPPER ARM FISTULA. PT IS IN STABLE CONDITION AT THIS TIME. PT IS ON OXYGEN 2L VIA N/C SATURATING AT 97% AT THIS TIME. HOB ELEVATED TOLERATED. CALL LIGHT WITHIN REACH AND FUNCTIONING. BED LOCKED AND IN LOWEST POSITION. WILL CONTINUE TO MONITOR AND ASSESS PT.
[2019-12-02 08:00] VITALS: BP 101/65
[2019-12-02] MEDS: PANTOPRAZOLE 40 MG TABLET.DR PO SCH (08:05)
[2019-12-02] MEDS: MULTIVITAMINS,THERAGRAN 1 UDTAB TABLET PO SCH (08:06)
[2019-12-02] MEDS: CHOLECALCIFEROL 1,000 UNIT TABLET (VIT D3) PO SCH (08:06)
[2019-12-02] MEDS: ASCORBIC ACID 500 MG TABLET PO SCH (08:06)
[2019-12-02] MEDS: DOCUSATE SODIUM 100 MG CAPSULE PO SCH ×2 (08:06→16:36)
[2019-12-02] MEDS: THIAMINE HCL 100 MG TABLET PO SCH (08:06)
[2019-12-02] MEDS: LEVOTHYROXINE SODIUM 50 MCG TABLET PO SCH (08:07)
[2019-12-02] MEDS: DEXAMETHASONE SOD PHOSPHATE 10 MG/ML VIAL IV SCH (08:07)
[2019-12-02] MEDS: AMIODARONE HCL 200 MG TABLET PO SCH (08:07)
[2019-12-02] MEDS: CLOTRIMAZOLE 1% 15 GM TUBE TP SCH ×2 (08:09→16:36)
[2019-12-02 10:52] LABS: HEMATOCRIT 36 % (39-51); HEMOGLOBIN 11.6 g/dL (13.5-17.5); LYMPHOCYTES # (AUTO) 0.4 /CMM (0.8-4.8); LYMPHOCYTES % (AUTO) 3.6 % (20.0-44.0); MEAN CORPUSCULAR HGB CONC 33 g/dl (31.0-36.0); MEAN CORPUSCULAR VOLUME 91 fL (80-96); MONOCYTES # (AUTO) 0.3 /CMM (0.1-1.30); NEUTROPHILS % (AUTO) 93.4 % (43.0-81.0); PLATELET COUNT (AUTO) 165 /CMM (150-450); RED BLOOD CELL COUNT(AUTO) 3.91 MIL/uL (4.5-6.0); WHITE BLOOD COUNT (AUTO) 10.7 K/uL (4.3-11.0)
[2019-12-02 11:00] LABS: CALCIUM, SERUM 8.1 mg/dL (8.5-10.1); CREATININE 0.7 mg/dL (0.6-1.3); POTASSIUM 4.2 mmol/L (3.5-5.1)
[2019-12-02 12:00] VITALS: BP 107/65
[2019-12-02 16:00] VITALS: BP 107/66
--- NOTE | 2019-12-02 18:57 | NUR ---
PRIZER HAND/TAMMIE MONITORING PT IS CURRENTLY IN BED, AWAKE, ALERT AND ORIENTED X1 WITH CONFUSION. PT IS ON 2L OF OXYGEN VIA N/C SATURATING AT 96% AT THIS TIME. PT IS IN STABLE CONDITION AT THIS TIME. PT KEPT CLEAN, DRY AND COMFORTABLE THROUGH OUT SHIFT. ALL NEEDS MET WITH HELP OF COURT MESSENGER. SCHEDULED MEDS GIVEN AND TOLERATED WELL. PT TURNED Q2HRS. PT HAS A CONDOM CATH THAT IS INTACT AND DRAINING WELL VIA GRAVITY. PT NOTED WITH VIDAL REDNESS. GOOD VIDAL CARE PROVIDED THROUGH OUT SHIFT. PT IS DNR. PT IS COVID 19 POSITIVE ALL SAFETY MEASURES PROVIDED AND IMPLEMENTED PER FACILITY PROTOCOL. CALL LIGHT WITHIN REACH AND FUNCTIONING. BED LOCKED AND IN LOWEST POSITION. WILL ENDORSE TO NEXT SHIFT NURSE FOR NINO.
--- NOTE | 2019-12-02 19:20 | NUR ---
RN OPENING NOTE RECEIVED PATIENT IN BED RESTING ALERT ORIENTED X1 CONFUSED VERBALLY RESPONSIVE,ON MED SURG,DNR,NO SOB NOT ACUTE DISTRESS NOTED AT THIS TIME,ON 2L OXYGEN VIA NASAL CANNULA, O2:95% ON MONITORING FOR COVID 19 POSITIVE AND DROPLET/CONTACT ISOLATION,IV SITE IS ON LEFT HAND INTACT PATENT,FLUSHED.BED IN LOW POSITON AND BED ALARM IS ON,IMPLEMENT SAFETY MEASURE,CALL LIGHT WITHIN REACH,CONTINUE TO MONITOR.
[2019-12-02] MEDS: CEFTRIAXONE 1 G in IV D5W 50 ML IV SCH (19:57)
[2019-12-02 20:00] VITALS: BP 107/66
[2019-12-02] MEDS: ATORVASTATIN 40 MG TABLET PO SCH (21:06)
[2019-12-02] MEDS: MIRTAZAPINE 15 MG TABLET PO SCH (21:07)
[2019-12-03] VITALS: BP 100/60
[2019-12-03 04:00] VITALS: BP 101/60
[2019-12-03] MEDS: POLYVINYL ALCOHOL 15 ML BOTTLE EACHEYE SCH ×2 (04:00→12:43)
--- NOTE | 2019-12-03 06:45 | NUR ---
RN CLOSING NOTE PATIENT REMAINS ON ALERT ORIENTED X1 CONFUSED NO SOB NOT ACUTE DISTRESS NOTED HE IS ON MONITORING FOR COVID 19 POSITIVE DROPLET/CONTACT ISOLATION,DNR ON 2L OXYGEN VIA NASAL CANNULA,O2:94%,NO PAIN NO DISCOMFORT NOTED,IV SITE IS ON LEFT HAND INTACT PATENT,ALL DUE MEDS GIVEN MD ORDERED,KEPT CLEAN AND DRY ALL THE TIME,ALL NEEDS ATTENDED,ENDORSE NEXT COMING SHIFT FOR CONTINUATION OF CARE
[2019-12-03 08:00] VITALS: BP 91/51
--- NOTE | 2019-12-03 08:15 | NUR ---
RN OPENING NOTE RECEIVED PATIENT IN BED RESTING ALERT ORIENTED X1 AND CONFUSED BUT VERBALLY RESPONSIVE,ON MED SURG. NO SOB NOT ACUTE DISTRESS NOTED . PT IS ON 2L OXYGEN VIA NASAL CANNULA, 95% ON MONITORING FOR COVID 19 POSITIVE AND DROPLET/CONTACT ISOLATION,IV SITE IS ON LEFT HAND INTACT AND FLUSHING WELL BED IS IN LOWEST POSITION AND BED ALARM IS ON. SAFETY MEASUREMENTS ARE IMPLEMENT.CALL LIGHT WITHIN REACH. WILL CONTINUE TO MONITOR.
[2019-12-03] MEDS: THIAMINE HCL 100 MG TABLET PO SCH (09:21)
[2019-12-03] MEDS: CHOLECALCIFEROL 1,000 UNIT TABLET (VIT D3) PO SCH (09:21)
[2019-12-03] MEDS: ASCORBIC ACID 500 MG TABLET PO SCH (09:22)
[2019-12-03] MEDS: MULTIVITAMINS,THERAGRAN 1 UDTAB TABLET PO SCH (09:27)
[2019-12-03] MEDS: PANTOPRAZOLE 40 MG TABLET.DR PO SCH (09:27)
[2019-12-03] MEDS: DOCUSATE SODIUM 100 MG CAPSULE PO SCH ×2 (09:27→16:22)
[2019-12-03] MEDS: LEVOTHYROXINE SODIUM 50 MCG TABLET PO SCH (09:27)
[2019-12-03] MEDS: DEXAMETHASONE SOD PHOSPHATE 10 MG/ML VIAL IV SCH (09:28)
[2019-12-03] MEDS: CLOTRIMAZOLE 1% 15 GM TUBE TP SCH ×2 (09:29→16:21)
[2019-12-03] MEDS: AMIODARONE HCL 200 MG TABLET PO SCH (09:32)
[2019-12-03 12:00] VITALS: BP 104/48
[2019-12-03 16:00] VITALS: BP 99/55
--- NOTE | 2019-12-03 16:58 | NUR ---
TAMMIE RN NOTES RECEIVED ORDER THAT PT IS READY TO TRANSFER. AMBULANCA CAME TO TRANSFER TO ANOTHER HOSPITAL
--- NOTE | 2019-12-03 17:47 | NUR ---
TAMMIE RN NOTES GAVE REPORT TO DEMOND IN [facility] IN [place]
--- NOTE | 2019-12-03 17:48 | NUR ---
TAMMIE RN NOTES PT WAS TRANSFERRED IN STABLE CONDITION WITH OXYGEN 2L NC AND VS WNL . SAFETY MEASUREMENTS ARE IMPLEMENTED
== END 2019-12-03 16:45 | DRG 871 ==
LOC: ER 12:19 → TELE 14:24 → TELE1 14:27 → MEDSG1 12-02 11:28
PROVIDERS: ADMIT Student in an Organized Health Care Education/Training Program
DX: A41.89 Other specified sepsis (principal); I21.4 Non-ST elevation (NSTEMI) myocardial infarction; R65.21 Severe sepsis with septic shock; N17.0 Acute kidney failure with tubular necrosis; J96.01 Acute respiratory failure with hypoxia; U07.1 COVID-19; J12.89 Other viral pneumonia; J15.6 Pneumonia due to other Gram-negative bacteria; E44.0 Moderate protein-calorie malnutrition; N39.0 Urinary tract infection, site not specified; I50.22 Chronic systolic (congestive) heart failure; E87.2 Acidosis; E87.0 Hyperosmolality and hypernatremia; E86.0 Dehydration; E78.5 Hyperlipidemia, unspecified; H26.9 Unspecified cataract; I25.10 Atherosclerotic heart disease of native coronary artery without angina pectoris; I48.91 Unspecified atrial fibrillation; F03.90 Unspecified dementia, unspecified severity, without behavioral disturbance, psychotic disturbance, mood disturbance, and anxiety; I73.9 Peripheral vascular disease, unspecified; F32.9 Major depressive disorder, single episode, unspecified; Z66 Do not resuscitate; H52.4 Presbyopia; Z91.041 Radiographic dye allergy status; Z79.02 Long term (current) use of antithrombotics/antiplatelets; Z79.82 Long term (current) use of aspirin; Z95.1 Presence of aortocoronary bypass graft; Z79.01 Long term (current) use of anticoagulants; Z79.899 Other long term (current) drug therapy; Y95 Nosocomial condition; Z86.73 Personal history of transient ischemic attack (TIA), and cerebral infarction without residual deficits; Z87.891 Personal history of nicotine dependence; D64.9 Anemia, unspecified; D69.6 Thrombocytopenia, unspecified; E87.6 Hypokalemia; F09 Unspecified mental disorder due to known physiological condition; D63.8 Anemia in other chronic diseases classified elsewhere; E86.9 Volume depletion, unspecified; B96.4 Proteus (mirabilis) (morganii) as the cause of diseases classified elsewhere
CPT/HCPCS: 36415; 36600; 71045-TC; 80048-TC; 80061-TC; 80076-TC; 80202-TC; 81000-TC; 82040-TC; 82550-TC; 82728-TC; 82803-TC; 83605-TC; 83615-TC; 83735-TC; 84100-TC; 84443-TC; 84484-TC; 85025-TC; 85027-TC; 85378-TC; 85730-TC; 86140-TC; 87040-TC; 87081-TC; 87086-TC; 87186-TC; 92611-TC; 93308-TC; 97110-TC; 97112-TC; 97530-TC; A4216; A4349; G0378; J0696; J1100; J1650; J2185; J2543; J3370; J3480; J3490; J7030; J7040; J7050; J7060; J7070; U0003-CS

== ENCOUNTER 2020-12-30 17:36 | Inpatient (IN) | payer MEDICARE, OTHER ==
[~2020-12-30] VITALS: Ht 167.6 cm; Wt 68.9 kg
[~2020-12-30 17:36] MED LIST changes: +ASCO-352 PO; +CHOL100040 PO; -LEVO25TA7 PO; +MIRT-121 PO; -MIRT15TA PO; +QUERCETIN PO
--- NOTE | 2020-12-30 17:59 | NUR ---
to er bed 4, c/o weakness and weightloss, attached to monitor, aaox2, breathing even and non labored
--- NOTE | 2020-12-30 18:23 | NUR ---
MOVE SHEET SUBMITTED AND CALLED FOR MS BED.
[2020-12-30] MEDS ORDERED: NA PHOS,M-B/NA PHOS,DI-BA 1 EA ENEMA RC PRN (18:30)
[2020-12-30] MEDS ORDERED: ACETAMINOPHEN 325 MG TABLET PO PRN ×2 (18:30)
[2020-12-30] MEDS ORDERED: ONDANSETRON HCL/PF 4 MG/2 ML VIAL IVP PRN (18:30)
[2020-12-30] MEDS ORDERED: MAG HYDROX/AL HYDROX/SIMETH 30 ML UDC PO PRN (18:30)
[2020-12-30] MEDS ORDERED: BISACODYL SUPP (10 MG) 10 MG/SUPP.RECT SUPP.RECT RC PRN (18:30)
[2020-12-30] MEDS ORDERED: ACETAMINOPHEN ES 500 MG TABLET PO PRN (18:30)
[2020-12-30] MEDS ORDERED: Z GUARD REMEDY 2 OZ OINT TP PRN (18:30)
[2020-12-30] MEDS ORDERED: MAGNESIUM HYDROXIDE 30 ML UDC PO PRN ×2 (18:30)
[2020-12-30] MEDS ORDERED: POLY15DR40 EACHEYE (18:47)
[2020-12-30] MEDS ORDERED: PANT20TA2 PO (18:47)
--- NOTE | 2020-12-30 19:14 | NUR ---
covid swab done and sent to lab
--- NOTE | 2020-12-30 19:35 | NUR ---
SHOE COBBLER AT BEDSIDE
--- NOTE | 2020-12-30 19:50 | NUR ---
RN OSTOMY AT BEDSIDE
[2020-12-30 19:58] LABS: HEMOGLOBIN 12.4 g/dL (13.5-17.5); RED BLOOD CELL COUNT(AUTO) 4.17 MIL/uL (4.5-6.0)
[2020-12-30 20:03] LABS: BASOPHILS % (AUTO) 0.5 % (0.0-2.0); EOSINOPHILS % (AUTO) 2.4 % (0.0-6.0); HEMATOCRIT 38 % (39-51); LYMPHOCYTES # (AUTO) 1.1 K/uL (0.8-4.8); LYMPHOCYTES % (AUTO) 19.8 % (20.0-44.0); MEAN CORPUSCULAR HGB CONC 33 g/dl (31.0-36.0); MEAN CORPUSCULAR VOLUME 90 fL (80-96); MONOCYTES # (AUTO) 0.3 K/uL (0.1-1.30); MONOCYTES % (AUTO) 5.7 % (2.0-12.0); NEUTROPHILS # (AUTO) 4.1 K/uL (1.8-8.9); NEUTROPHILS % (AUTO) 71.6 % (43.0-81.0); PLATELET COUNT (AUTO) 123 K/uL (150-450); WHITE BLOOD COUNT (AUTO) 5.8 K/uL (4.3-11.0)
--- NOTE | 2020-12-30 20:03 | NUR ---
BED 109
[2020-12-30 20:07] LABS: CALCIUM, SERUM 8.5 mg/dL (8.5-10.1); CREATININE 0.9 mg/dL (0.6-1.3); POTASSIUM 3.9 mmol/L (3.5-5.1)
[2020-12-30] MEDS ORDERED: IV NS 0.9% 500 ML BAG IV ONE (20:30)
--- NOTE | 2020-12-30 21:08 | NUR ---
GAVE REPORT TO SHELDON TRAYLOR FOR NINO
[2020-12-30 21:10] VITALS: BP 120/68
--- NOTE | 2020-12-30 21:10 | NUR ---
MS RN ADMITTING NOTE PT TRANSPORTED BY [facility] TO UNIT FROM ED AT THIS TIME. RECEIVED REPORT FROM LAYTON ALEJANDRO @ED, A/O X2-3. PT ABLE TO COMMUNICATE NEEDS. NO SOB NOTED, NO C/O PAIN OR ANY APPARENT DISTRESS NOTED. RESPIRATIONS EVEN AND UNLABORED, ACTIVE BOWEL SOUNDS AUSCULTATED THROUGHOUT, ABDOMEN IS NON TENDER. HAS BRUISE IN SCROTUM, SKIN IS WARM TO TOUCH CAPILLARY REFILL < 3 SEC, PULSES PRESENT BILATERALLY, GOOD CIRCULATION NOTED. IV ACCESS NOTED IN LEFT HAND G#22, INTACT, PATENT,AND FLUSHING WELL. PT HAS NO BELONGINGS. ASPIRATION AND SAFETY PRECAUTIONS IN PLACE AND MAINTAINED AT ALL TIMES. BED IN LOWEST LOCKED POSITION, SIDE RAILS UPX2, TABLE AND CALL LIGHT WITHIN REACH. WILL CONTINUE PLAN OF CARE.
--- NOTE | 2020-12-30 21:17 | NUR ---
PT TRANSFERRED TO TAMMIE TO ROOM 109 VIA HOSPITAL PROTOCOL
--- NOTE | 2020-12-30 21:21 | NUR ---
UPDATED PARAS ARMSTRONG RN THAT IS BEING ADMITTED
[2020-12-30] MEDS: POLYVINYL ALCOHOL 15 ML BOTTLE OP SCH (21:46)
[2020-12-30] MEDS: ATORVASTATIN 40 MG TABLET PO SCH (21:58)
[2020-12-30] MEDS: MIRTAZAPINE 15 MG TABLET PO SCH (21:58)
[2020-12-31 03:59] VITALS: BP 120/68
[2020-12-31] MEDS: POLYVINYL ALCOHOL 15 ML BOTTLE OP SCH ×3 (05:38→21:45)
--- NOTE | 2020-12-31 06:30 | NUR ---
MS RN CLOSING NOTE PT AWAKE IN BED AN DIN GOOD CONDITION. WILL ENDORSE TO ONCOMING NURSE
[2020-12-31 06:54] LABS: BASOPHILS % (AUTO) 0.6 % (0.0-2.0); EOSINOPHILS % (AUTO) 3.9 % (0.0-6.0); HEMATOCRIT 36 % (39-51); HEMOGLOBIN 12.3 g/dL (13.5-17.5); LYMPHOCYTES # (AUTO) 1.2 K/uL (0.8-4.8); LYMPHOCYTES % (AUTO) 25.2 % (20.0-44.0); MEAN CORPUSCULAR HGB CONC 34 g/dl (31.0-36.0); MEAN CORPUSCULAR VOLUME 88 fL (80-96); MONOCYTES # (AUTO) 0.3 K/uL (0.1-1.30); MONOCYTES % (AUTO) 7.1 % (2.0-12.0); NEUTROPHILS # (AUTO) 3.1 K/uL (1.8-8.9); NEUTROPHILS % (AUTO) 63.2 % (43.0-81.0); PLATELET COUNT (AUTO) 121 K/uL (150-450); RED BLOOD CELL COUNT(AUTO) 4.07 MIL/uL (4.5-6.0); WHITE BLOOD COUNT (AUTO) 4.8 K/uL (4.3-11.0)
[2020-12-31 07:56] LABS: CALCIUM, SERUM 8.1 mg/dL (8.5-10.1); CREATININE 0.8 mg/dL (0.6-1.3); PHOSPHORUS 3.6 mg/dL (2.5-4.9); POTASSIUM 3.8 mmol/L (3.5-5.1)
[2020-12-31] MEDS: ASCORBIC ACID 500 MG TABLET PO SCH (08:11)
[2020-12-31] MEDS: ASPIRIN EC 81 MG TABLET.DR PO SCH (08:11)
[2020-12-31] MEDS: CLOPIDOGREL BISULFATE 75 MG TABLET PO SCH (08:11)
[2020-12-31] MEDS: THIAMINE HCL 100 MG TABLET PO SCH (08:11)
[2020-12-31] MEDS: LEVOTHYROXINE SODIUM 50 MCG TABLET PO SCH (08:11)
[2020-12-31] MEDS: CHOLECALCIFEROL 1,000 UNIT TABLET (VIT D3) PO SCH (08:11)
[2020-12-31] MEDS: AMIODARONE HCL 200 MG TABLET PO SCH (08:12)
[2020-12-31] MEDS: DOCUSATE SODIUM 100 MG CAPSULE PO SCH ×2 (08:12→16:29)
[2020-12-31] MEDS ORDERED: Medication Not On Formulary EA (Multivitamin With Minerals (One Daily Complete) 1 EACH) PO SCH (09:00)
[2020-12-31] MEDS ORDERED: Medication Not On Formulary EA (Cranberry Extract (Cranberry) 850 MG) PO SCH (09:00)
--- NOTE | 2020-12-31 11:32 | NUR ---
WOUND CARE CONSULT: REVIEWED CHART, NURSING DOCUMENTATION AND PHOTOS WHICH INDICATE SCROTAL INCONTINENCE ASSOCIATED SKIN DAMAGE, PRESENT ON ADMISSION. RECOMMENDATIONS MADE FOR SKIN PROTECTION. DISCUSSED WITH NURSING STAFF. MD IN AGREEMENT WITH PLAN OF CARE.
[2020-12-31] MEDS ORDERED: IV D5 LR 1,000 ML IV ONE (13:00)
[2020-12-31 20:00] VITALS: BP 124/70
[2020-12-31] MEDS: ATORVASTATIN 40 MG TABLET PO SCH (21:46)
[2020-12-31] MEDS: MIRTAZAPINE 15 MG TABLET PO SCH (21:46)
[2021-01-01] MEDS: POLYVINYL ALCOHOL 15 ML BOTTLE OP SCH ×3 (04:37→21:41)
--- NOTE | 2021-01-01 07:06 | NUR ---
RN CLOSING NOTE PT WAS STABLE THROUGHOUT SHIFT, REMAINS ON ROOM AIR TOLERATING WELL NO DISTRESS NOTED. BED BATH DONE, WOUND CARE DONE, PT ABLE TO TURN INDEPENDENTLY. ALL NEEDS ATTENDED, PT DENIES PAIN. ALL MEDS ADMINISTERED ORDERED. SAFETY MEASURES IN PLACE. HOB ELEVATED. SIDE RAILS UP X2, BED LOCKED IN LOWEST POSITION WITH BED ALARM ON. PT REMAINS WITH IV INTACT. REPORT GIVEN TO DAY SHIFT RN FOR CONTINUATION OF CARE
--- NOTE | 2021-01-01 07:28 | NUR ---
RN OPENING NOTES RECEIVED PT IN BED, SUPINE POS,. ON ROOM AIR TOLERATING WELL WITH NO SOB OR DISTRESS NOTED. PT A/OX1, CONFUSED. PT INDEPENDENT AND CAN REPOSITION SELF. SAFETY MEASURES RENDERED, BED IN LOW POSITION, LOCK WITH CALL LIGHT WITHIN REACH. WILL CONTINUE TO MONITOR.
[2021-01-01] MEDS: ASPIRIN EC 81 MG TABLET.DR PO SCH (08:20)
[2021-01-01] MEDS: LEVOTHYROXINE SODIUM 50 MCG TABLET PO SCH (08:21)
[2021-01-01] MEDS: DOCUSATE SODIUM 100 MG CAPSULE PO SCH ×2 (08:21→16:03)
[2021-01-01] MEDS: CLOPIDOGREL BISULFATE 75 MG TABLET PO SCH (08:21)
[2021-01-01] MEDS: ASCORBIC ACID 500 MG TABLET PO SCH (08:21)
[2021-01-01] MEDS: CHOLECALCIFEROL 1,000 UNIT TABLET (VIT D3) PO SCH (08:21)
[2021-01-01] MEDS: THIAMINE HCL 100 MG TABLET PO SCH (08:21)
[2021-01-01] MEDS: AMIODARONE HCL 200 MG TABLET PO SCH (08:22)
[2021-01-01 16:00] VITALS: BP 127/68
--- NOTE | 2021-01-01 18:31 | NUR ---
RN CLOSING NOTES; PT IN BED SLEEPING. PT A/OX1 CONFUSED, DEMENTIA. ALL MEDS TAKEN AND TOLERATED WELL. NO SIGNIFICANT CHANGES OF PT CONDITION DURING SHIFT. SAFETY MEASURE RENDERED AND WELL TOLERATED. BED IN LOWEST POS. LOCKED WITH CALL LIGHT WITHIN REACH. ENDORSED TO MILK DRIER RN IN STABLE CONDITION.
[2021-01-01 20:00] VITALS: BP 127/73
[2021-01-01] MEDS: ATORVASTATIN 40 MG TABLET PO SCH (21:41)
[2021-01-01] MEDS: MIRTAZAPINE 15 MG TABLET PO SCH (21:42)
[2021-01-02] VITALS: BP 135/69
[2021-01-02 04:00] VITALS: BP 135/69
[2021-01-02] MEDS: POLYVINYL ALCOHOL 15 ML BOTTLE OP SCH (06:28)
--- NOTE | 2021-01-02 07:30 | NUR ---
MS RN OPENING NOTES RECEIVED PT IN BED, AWAKE, ALERT AND ORIENTED X 2, WITH PERIODS OF CONFUSION NOTED, ON ROOM AIR TOLERATING WELL WITH NO SOB OR DISTRESS NOTED. PT INDEPENDENT AND CAN REPOSITION SELF. IV ACCESS ON LEFT HAND G#22, PATENT AND FLUSHES WELL. SAFETY MEASURES RENDERED, BED IN LOW POSITION, LOCKED WITH CALL LIGHT WITHIN REACH. WILL CONTINUE TO MONITOR ACCORDINGLY.
[2021-01-02] MEDS: LEVOTHYROXINE SODIUM 50 MCG TABLET PO SCH (07:50)
[2021-01-02 08:00] VITALS: BP 114/60
[2021-01-02] MEDS: DOCUSATE SODIUM 100 MG CAPSULE PO SCH (08:27)
[2021-01-02 08:28] VITALS: BP 114/60
[2021-01-02] MEDS: THIAMINE HCL 100 MG TABLET PO SCH (08:28)
[2021-01-02] MEDS: AMIODARONE HCL 200 MG TABLET PO SCH (08:28)
[2021-01-02] MEDS: ASPIRIN EC 81 MG TABLET.DR PO SCH (08:29)
[2021-01-02] MEDS: ASCORBIC ACID 500 MG TABLET PO SCH (08:29)
[2021-01-02] MEDS: CLOPIDOGREL BISULFATE 75 MG TABLET PO SCH (08:29)
[2021-01-02] MEDS: CHOLECALCIFEROL 1,000 UNIT TABLET (VIT D3) PO SCH (08:29)
--- NOTE | 2021-01-02 12:10 | NUR ---
MS PAVING STONE INSTALLER NOTES DISCHARGED PATIENT IN STABLE CONDITION. DISCHARGE REPORT, INSTRUCTIONS AND FOLLOW UP GIVEN TO [facility] NURSE THESS. VITAL SIGNS WITHIN NORMAL LIMITS. ARMBAND REMOVED. IV ACCESS REMOVED, COVERED WITH GAUZE, NO BLEEDING NOTED. NO BELONGINGS NOTED. FORM SIGNED BY 2 RN, PATIENT UNABLE TO SIGN. PATIENT WAS PICKED UP BY 2 EMT FROM [facility]. LEFT UNIT IN STABLE CONDITION AT 1210 PM. CHARGE NURSE AND MD AWARE OF DISCHARGE.
== END 2021-01-02 12:07 | DRG 640 ==
LOC: ER 17:40 → ICU 20:26 → MEDSG1 20:32
PROVIDERS: ADMIT Internal Medicine; ATTEND Internal Medicine
DX: E86.0 Dehydration (principal); E43 Unspecified severe protein-calorie malnutrition; G93.41 Metabolic encephalopathy; N17.0 Acute kidney failure with tubular necrosis; I50.22 Chronic systolic (congestive) heart failure; R64 Cachexia; D64.9 Anemia, unspecified; F03.90 Unspecified dementia, unspecified severity, without behavioral disturbance, psychotic disturbance, mood disturbance, and anxiety; E03.9 Hypothyroidism, unspecified; I48.91 Unspecified atrial fibrillation; F32.9 Major depressive disorder, single episode, unspecified; I25.10 Atherosclerotic heart disease of native coronary artery without angina pectoris; Z20.822 Contact with and (suspected) exposure to COVID-19; Z86.73 Personal history of transient ischemic attack (TIA), and cerebral infarction without residual deficits; Z95.1 Presence of aortocoronary bypass graft; Z79.899 Other long term (current) drug therapy; I73.9 Peripheral vascular disease, unspecified; E78.5 Hyperlipidemia, unspecified; H26.9 Unspecified cataract; H52.4 Presbyopia; H04.129 Dry eye syndrome of unspecified lacrimal gland; Z91.041 Radiographic dye allergy status; F41.9 Anxiety disorder, unspecified; Z68.24 Body mass index [BMI] 24.0-24.9, adult; R63.8 Other symptoms and signs concerning food and fluid intake
CPT/HCPCS: 36415; 71045-TC; 80048-TC; 83735-TC; 84100-TC; 85025-TC; 87081-TC; G0378; J3490; J7040; U0003

== ENCOUNTER 2021-05-28 14:11 | Emergency (ER) | payer MEDICARE, OTHER ==
[~2021-05-28] VITALS: Ht 177.8 cm; Wt 83.9 kg
[~2021-05-28 14:11] MED LIST changes: -ASPI-605 PO; -CLOP75TA15 PO; -DEXT15DR6 OP; +PANT20TA2 PO; +POLY15DR40 EACHEYE; -QUERCETIN PO
--- NOTE | 2021-05-28 14:21 | NUR ---
LESTER CLEVELAND FROM SNF, ACCIDENTALLY PULLED OUT HIS G TUBE. CALLED NURSING FACILITY, G TUBE 20FR. VITALS ARE WITHIN NORMAL LIMITS. PT BREATHING IS REGULAR AND UNLABORED ON ROOM AIR. PROVIDED WITH WARM BLANKET FOR COMFORT.
[2021-05-28] MEDS ORDERED: DIATR MEGLU/DIATRIZOATE SODIUM 30 ML BOTTLE (GASTROGRAPHIN) ONE (15:26)
--- NOTE | 2021-05-28 15:31 | NUR ---
X RAY AT BEDSIDE
--- NOTE | 2021-05-28 16:12 | NUR ---
[facility] CALLED ETA 60 MINS PER SANDRA
--- NOTE | 2021-05-28 17:25 | NUR ---
REPORT GIVEN TO TRANSPORTATION, PT IS STABLE.
[2021-05-28 17:31] VITALS: BP 141/81
--- NOTE | 2021-05-28 17:50 | NUR ---
REPORT GIVEN TO DANIEL FROM [facility], PT WILL BE GOING TO BED 2B
== END 2021-05-28 18:03 ==
LOC: ER 14:19
DX: K94.23 Gastrostomy malfunction (principal); F03.90 Unspecified dementia, unspecified severity, without behavioral disturbance, psychotic disturbance, mood disturbance, and anxiety; I25.10 Atherosclerotic heart disease of native coronary artery without angina pectoris; I48.91 Unspecified atrial fibrillation; E78.5 Hyperlipidemia, unspecified; F32.A Depression, unspecified; I50.9 Heart failure, unspecified; Z88.8 Allergy status to other drugs, medicaments and biological substances; Z79.899 Other long term (current) drug therapy
CPT/HCPCS: 43762; 74018; 99284; Q9963

== ENCOUNTER → 2021-05-30 | Emergency (ER) | payer MEDICARE, OTHER ==
[~2021-05-30] VITALS: Ht 180.3 cm; Wt 81.6 kg
[~2021-05-30] MED LIST changes: +DIATR MEGLU/DIATRIZOATE SODIUM 30 ML BOTTLE (GASTROGRAPHIN) ONE
--- NOTE | 2021-05-30 16:00 | NUR ---
SENT TO ER BED 12. LIZABETH FROM [facility] FOR G TUBE REPLACEMENT, HAS ALLERGY TO IODINE AND UNALBLE TO REPLACE AT FACILTY. PT WAS PRESENT TO THE ER 2 DAYS AGO FOR THE SAME REASON.
--- NOTE | 2021-05-30 18:18 | NUR ---
X RAY AT BEDSIDE
--- NOTE | 2021-05-30 20:12 | NUR ---
PT WILL BE TRANSPORTED BACK TO HIS FACILITY IN 60-75 MINS VIA [facility].
--- NOTE | 2021-05-30 20:56 | NUR ---
[facility] AT BEDSIDE TO TRANSPORT PATIENT BACK TO FACILITY IN STABLE CONDITION.
[2021-05-30 20:59] VITALS: BP 130/60
--- NOTE | 2021-05-30 20:59 | NUR ---
REPORT GIVEN TO LAYTON MCFARLANE AT FACILITY
== END ==
LOC: ER 15:57
DX: K94.23 Gastrostomy malfunction (principal); I50.9 Heart failure, unspecified; I25.10 Atherosclerotic heart disease of native coronary artery without angina pectoris; I48.91 Unspecified atrial fibrillation; F32.9 Major depressive disorder, single episode, unspecified; Z86.79 Personal history of other diseases of the circulatory system; Z95.1 Presence of aortocoronary bypass graft; Z86.59 Personal history of other mental and behavioral disorders; Z98.49 Cataract extraction status, unspecified eye; Z91.040 Latex allergy status; Z79.1 Long term (current) use of non-steroidal anti-inflammatories (NSAID); Z79.899 Other long term (current) drug therapy
CPT/HCPCS: 43762; 74018; 99285; Q9963

== ENCOUNTER 2021-07-03 10:45 | Inpatient (IN) | payer OTHER ==
[~2021-07-03] VITALS: Ht 182.9 cm; Wt 75.3 kg
[2021-07-03] VITALS (22 sets, daily range): BP systolic 76–121; BP diastolic 34–79
[~2021-07-03 10:45] MED LIST changes: -DIATR MEGLU/DIATRIZOATE SODIUM 30 ML BOTTLE (GASTROGRAPHIN) ONE
--- NOTE | 2021-07-03 11:05 | NUR ---
DR VELÁZQUEZ SPOKE TO PATIENTS SON JAYMIE. CONFIRMED DNR/DNI W/ DR VELÁZQUEZ AND JANETH TRAYLOR.
[2021-07-03 11:19] LABS: ABG BASE EXCESS -7.1 mmol/L; ABG PCO2 18.7 mmHg (35.0-45.0); ABG PO2 78.1 mmHg (75.0-100.0); COHb 0.7 % (0.5-1.5); MetHb 0.3 % (0.0-1.5); O2Hb 95.2 % (94.0-97.0); SITE, ABG Right Radial; VENT MODE, BG 15 LPM NRB
[2021-07-03] MEDS ORDERED: ACETAMINOPHEN 650 MG/SUPP.RECT RC ONE ×2 (11:29→11:30)
[2021-07-03] MEDS ORDERED: IV NS 0.9% 500 ML BAG IV ONE (11:30)
[2021-07-03] MEDS ORDERED: CEFTRIAXONE 1GM BAG (ER ONLY) 50 ML IV ONE ×2 (11:30→11:48)
[2021-07-03 11:56] LABS: BASOPHILS % (AUTO) 0.2 % (0.0-2.0); HEMATOCRIT 35 % (39-51); HEMOGLOBIN 11.1 g/dL (13.5-17.5); LYMPHOCYTES # (AUTO) 0.1 K/uL (0.8-4.8); LYMPHOCYTES % (AUTO) 1.2 % (20.0-44.0); MEAN CORPUSCULAR HGB CONC 32 g/dl (31.0-36.0); MEAN CORPUSCULAR VOLUME 87 fL (80-96); MONOCYTES # (AUTO) 0.1 K/uL (0.1-1.30); NEUTROPHILS # (AUTO) 9.9 K/uL (1.8-8.9); NEUTROPHILS % (AUTO) 97.6 % (43.0-81.0); PLATELET COUNT (AUTO) 192 K/uL (150-450); RED BLOOD CELL COUNT(AUTO) 4.07 MIL/uL (4.5-6.0); WHITE BLOOD COUNT (AUTO) 10.2 K/uL (4.3-11.0)
[2021-07-03 12:26] LABS: ALBUMIN 2.4 g/dL (3.4-5.0); ALKALINE PHOSPHATASE 127 U/L (46-116); ASPARTATE AMINOTRANSFERASE 23 U/L (15-37); BILIRUBIN,DIRECT 0.1 mg/dL (0.0-0.2); BILIRUBIN,TOTAL 0.5 mg/dL (0.2-1.0); TOTAL PROTEIN, SERUM 6.8 g/dL (6.4-8.2)
[2021-07-03] MEDS ORDERED: DOXYCYCLINE 100 MG in IV D5W 100 ML IV SCH (12:30)
[2021-07-03 12:45] LABS: ALANINE AMINOTRANSFERASE 30 U/L (12-78)
[2021-07-03 12:55] LABS: CARBON DIOXIDE 14 mmol/L (21-32); CHLORIDE 103 mmol/L (98-107); CREATININE 2.5 mg/dL (0.6-1.3); GLUCOSE 138 mg/dL (74-106); POTASSIUM 4.7 mmol/L (3.5-5.1); SODIUM SERUM 138 mmol/L (136-145); UREA NITROGEN, BLOOD 61 mg/dL (7-18)
[2021-07-03 13:16] LABS: BILIRUBIN,URINE NEGATIVE (NEGATIVE); COLOR,URINE YELLOW (YELLOW); LEUKOCYTE ESTERASE ,URINE LARGE (NEGATIVE); NITRITE, URINE NEGATIVE (NEGATIVE); PH,URINE 8.5 (5.0-8.0); PROTEIN,URINE 100 mg/dl (NEGATIVE); UGLUCOSE NEGATIVE (NEGATIVE); UROBILINOGEN,URINE 0.2 EU/dL (0.2)
[2021-07-03] MEDS ORDERED: ASPIRIN 81 MG TAB.CHEW ONE (13:35)
[2021-07-03 13:57] LABS: BACTERIA,URINE None seen /HPF (None Seen); WBC,URINE 0-2 /HPF (0-3)
[2021-07-03 13:58] LABS: SQUAMOUS EPITHELIAL CELL,UR None Seen /HPF (None Seen); URINE AMORPHOUS PHOSPHATES Many /HPF (None Seen)
[2021-07-03] MEDS ORDERED: IV NS 0.9% 500 ML IV ONE (14:00)
[2021-07-03] MEDS ORDERED: ASPIRIN 81 MG TAB.CHEW GT ONE (14:00)
[2021-07-03] MEDS ORDERED: AMIN30LI2 PO (14:17)
[2021-07-03] MEDS ORDERED: APIX5TAB PO (14:17)
[2021-07-03] MEDS ORDERED: OMEP20TA5 PO (14:17)
[2021-07-03] MEDS ORDERED: METH10TA80 PO (14:17)
[2021-07-03] MEDS ORDERED: Sodium Bicarbonate 100 MEQ in IV D5 / 0.2% NACL 1,000 ML IV SCH (15:30)
--- NOTE | 2021-07-03 16:50 | NUR ---
GOING TO ICU 258
[2021-07-03] MEDS ORDERED: IV NS 0.9% 1,000 ML IV ONE (17:00)
--- NOTE | 2021-07-03 17:18 | NUR ---
REPORT GIVEN TO JOY TRAYLOR. GOING TO ICU.
--- NOTE | 2021-07-03 18:07 | NUR ---
pt transferred to icu per acls protocol.
[2021-07-03] MEDS ORDERED: ONDANSETRON HCL/PF 4 MG/2 ML VIAL IVP PRN (18:30)
[2021-07-03] MEDS ORDERED: Z GUARD REMEDY 4 OZ OINT TP PRN (18:30)
[2021-07-03] MEDS ORDERED: ACETAMINOPHEN 325 MG TABLET PO PRN ×2 (18:30)
[2021-07-03] MEDS ORDERED: NOREPINEPHRINE 8 MG in IV NS 0.9% 242 ML IV PRN (19:00)
[2021-07-03] MEDS ORDERED: PHARMACY TO CHANGE PO MEDS TO GT/NG XX PRN (19:00)
[2021-07-03] MEDS: IV NS 0.9% 1,000 ML IV PRN (19:06)
[2021-07-03] MEDS: VANCOMYCIN 0.75 GM in IV D5W 250 ML IV SCH (19:27)
[2021-07-03] MEDS: ENOXAPARIN SODIUM 80 MG/0.8 ML DISP.SYRIN SQ SCH ×2 (19:29→21:00)
[2021-07-03] MEDS: ALBUTEROL SULFATE 8 GM HFA.AER.AD IH SCH ×2 (19:30→23:30)
[2021-07-03] MEDS: IPRATROPIUM BROMIDE 14 GM INHALER (or 12.9 GM) IH SCH ×2 (19:30→23:30)
--- NOTE | 2021-07-03 19:39 | NUR ---
MED NOTE: PT UNABLE TO FOLLOW INSTRUCTIONS FOR INHAILER ADMINISTRATION.
--- NOTE | 2021-07-03 20:38 | NUR ---
ICU/RN: LAURA ZURITA DNP NOTIFIED OF CRITICAL TROP 1 HIGH SENSE 99. TREDING DOWN. NO NEW ORDERS WILL CONTINUE TO MONITOR.
[2021-07-03] MEDS: ATORVASTATIN 40 MG TABLET GT SCH (21:12)
[2021-07-03] MEDS: CEFEPIME 2 GM in IV D5W 100 ML IV SCH (21:12)
[2021-07-03] MEDS: ACETAMINOPHEN 650 MG/20.3 ML UDC GT PRN (21:12)
[2021-07-03] MEDS: NOREPINEPHRINE 8 MG in IV NS 0.9% 242 ML IV PRN (21:19)
--- NOTE | 2021-07-03 21:37 | NUR ---
ICU/RN: LEVOPHED 0.1MCG/KG/MIN INITIATED ORDERED. WILL CONTINUE TO MONITOR BP CLOSELY.
--- NOTE | 2021-07-03 22:40 | NUR ---
ICU/RN: PT HAD MODERATE SOFT BROWN BOWEL MOVEMENT. PT CLEANED, PERICARE RENDERED. LINENS CHANGED. PT NOTED TO HAVE HEMATURIA IN TORRES COLLECTION BAG HOLD ASPIRIN AND LOVENOX FOR NOW PER MELLISSA. PT ALSO NOTED TO BE MORE LETHARGIC. MELLISSA ZURITA DNP NOTIFIED. STAT ABG ORDERED AND RESULTS RELAYED TO MELLISSA. NO NEW ORDERS AT THIS TIME WILL CONTINUE TO MONITOR CLOSELY.
[2021-07-03 23:08] LABS: ABG BASE EXCESS -5.7 mmol/L; ABG OXYGEN SATURATION 99.5 % (92.0-98.5); ABG PCO2 30.5 mmHg (35.0-45.0); ABG PH 7.394 (7.350-7.450); ABG PO2 222.7 mmHg (75.0-100.0); AaDO2 459.8 mmHg; COHb 0.2 % (0.5-1.5); MetHb 0.1 % (0.0-1.5); O2Hb 99.2 % (94.0-97.0); SITE, ABG Left Radial; VENT MODE, BG NRB
--- NOTE | 2021-07-03 23:16 | NUR ---
stat ABG done.
[2021-07-04] VITALS (96 sets, daily range): BP systolic 83–139; BP diastolic 37–87
[2021-07-04] MEDS: IPRATROPIUM BROMIDE 14 GM INHALER (or 12.9 GM) IH SCH ×5 (03:30→23:05)
[2021-07-04] MEDS: ALBUTEROL SULFATE 8 GM HFA.AER.AD IH SCH ×5 (03:30→23:05)
--- NOTE | 2021-07-04 03:54 | NUR ---
ICU/RN: PT MORE ALERT AT THIS TIME. PULLED OUT RIGHT HAND IV. PRESSURE DRESSING APPLIED. CATH REMOVED WITH TIP INTACT.
[2021-07-04 06:00] LABS: BASOPHILS % (AUTO) 0.1 % (0.0-2.0); EOSINOPHILS % (AUTO) 0.2 % (0.0-6.0); HEMATOCRIT 29 % (39-51); HEMOGLOBIN 9.5 g/dL (13.5-17.5); LYMPHOCYTES # (AUTO) 0.3 K/uL (0.8-4.8); LYMPHOCYTES % (AUTO) 3.2 % (20.0-44.0); MEAN CORPUSCULAR HGB CONC 33 g/dl (31.0-36.0); MEAN CORPUSCULAR VOLUME 85 fL (80-96); MONOCYTES # (AUTO) 0.4 K/uL (0.1-1.30); MONOCYTES % (AUTO) 4.1 % (2.0-12.0); NEUTROPHILS # (AUTO) 9.9 K/uL (1.8-8.9); NEUTROPHILS % (AUTO) 92.4 % (43.0-81.0); PLATELET COUNT (AUTO) 133 K/uL (150-450); RED BLOOD CELL COUNT(AUTO) 3.37 MIL/uL (4.5-6.0); WHITE BLOOD COUNT (AUTO) 10.7 K/uL (4.3-11.0)
[2021-07-04 07:26] LABS: CARBON DIOXIDE 19 mmol/L (21-32); CHLORIDE 106 mmol/L (98-107); CREATININE 1.8 mg/dL (0.6-1.3); GLUCOSE 105 mg/dL (74-106); MAGNESIUM 1.6 mg/dL (1.8-2.4); PHOSPHORUS 3.8 mg/dL (2.5-4.9); POTASSIUM 4.2 mmol/L (3.5-5.1); SODIUM SERUM 139 mmol/L (136-145); UREA NITROGEN, BLOOD 59 mg/dL (7-18)
--- NOTE | 2021-07-04 07:30 | NUR ---
START OF SHIFT NOTES: RECEIVED PT. ON BED ASLEEP COMFORTABLY; NO SIGNIFICANT CHANGES AT THIS TIME; CALL LIGHT WITHIN REACH; ALL SAFETY ALARMS AUDIBLE AND ACTIVATED PER PROTOCOL; WILL CONTINUE TO MONITOR PATIENT.
[2021-07-04] MEDS: ENOXAPARIN SODIUM 80 MG/0.8 ML DISP.SYRIN SQ SCH (09:00)
[2021-07-04] MEDS: ASPIRIN 81 MG TAB.CHEW GT SCH (09:00)
[2021-07-04] MEDS ORDERED: APIXABAN 5 MG TABLET NG SCH (09:00)
[2021-07-04] MEDS: METHIMAZOLE (5MG) 5 MG TABLET GT SCH (09:26)
[2021-07-04] MEDS: AMIODARONE HCL 200 MG TABLET GT SCH (09:27)
[2021-07-04] MEDS: PANTOPRAZOLE 40 MG VIAL IV SCH (09:27)
[2021-07-04] MEDS: IV NS 0.9% 1,000 ML IV PRN (10:48)
[2021-07-04] MEDS ORDERED: MAGNESIUM OXIDE 400 MG TABLET GT ONE (11:00)
[2021-07-04 11:41] LABS: ALANINE AMINOTRANSFERASE 34 U/L (12-78); ALBUMIN 2.1 g/dL (3.4-5.0); ASPARTATE AMINOTRANSFERASE 32 U/L (15-37); BILIRUBIN,TOTAL 0.4 mg/dL (0.2-1.0)
[2021-07-04 11:42] LABS: TOTAL PROTEIN, SERUM 6.3 g/dL (6.4-8.2)
[2021-07-04] MEDS: APIXABAN 5 MG TABLET PO SCH ×2 (13:36→17:48)
[2021-07-04] MEDS ORDERED: AMIODARONE 150 MG in IV D5W 100 ML IV ONE (15:30)
[2021-07-04] MEDS: AMIODARONE 450 MG in IV D5W 241 ML IV PRN (15:38)
[2021-07-04] MEDS: NOREPINEPHRINE 8 MG in IV NS 0.9% 242 ML IV PRN (16:32)
[2021-07-04] MEDS: VANCOMYCIN 0.75 GM in IV D5W 250 ML IV SCH (18:31)
--- NOTE | 2021-07-04 19:01 | NUR ---
END OF SHIFT NOTES: REPORT GIVEN TO NIGHT RN; PT. RESTING COMFORTABLY ON BED; REPOSITIONED Q2H AND PRN PER PROTOCOL; ALL DUE MEDS. GIVEN ORDERED; CALL LIGHT WITHIN REACH; ENDORSED FOR CONTINUITY OF CARE.
[2021-07-04 19:14] LABS: CHOLESTEROL 85 mg/dL (<200); HDL CHOLESTEROL 19 mg/dL (40-60); LDL 41 mg/dL (0-99); THYROID STIMULATING HORMONE 11.268 uIU/mL (0.358-3.74); TRIGLYCERIDES 106 mg/dL (30-150)
--- NOTE | 2021-07-04 19:45 | NUR ---
RT NOTE NASOTRACHEAL SUCTION PERFORMED. MODERATE THICK WHITE YELLOW SECRETIONS NOTED. RN JOY @ BEDSIDE ASSISTING. NO SOB NOTED. WILL CONTINUE TO MONITOR.
[2021-07-04] MEDS: ATORVASTATIN 40 MG TABLET GT SCH (21:05)
[2021-07-04] MEDS: CEFEPIME 2 GM in IV D5W 100 ML IV SCH (21:05)
[2021-07-04 21:50] LABS: CALCIUM, SERUM 8.3 mg/dL (8.5-10.1)
[2021-07-05] VITALS (96 sets, daily range): BP systolic 80–139; BP diastolic 37–102
[2021-07-05] MEDS: AMIODARONE 450 MG in IV D5W 241 ML IV PRN ×2 (00:46→18:52)
[2021-07-05] MEDS: IV NS 0.9% 1,000 ML IV PRN ×2 (01:47→13:41)
[2021-07-05] MEDS: IPRATROPIUM BROMIDE 14 GM INHALER (or 12.9 GM) IH SCH ×6 (02:30→23:26)
[2021-07-05] MEDS: ALBUTEROL SULFATE 8 GM HFA.AER.AD IH SCH ×6 (02:30→23:26)
--- NOTE | 2021-07-05 03:45 | NUR ---
RT NOTE NASOTRACHEAL SUCTION DONE. MODERATE THICK WHITE YELLOW SECRETIONS NOTED. B/S IMPROVED. RN JOY ASSISTING. NO SOB NOTED.
--- NOTE | 2021-07-05 07:30 | NUR ---
START OF SHIFT NOTES: RECEIVED REPORT FROM EMERSON; PATIENT ASLEEP COMFORTABLY; NO SOB NOTED; RESPIRATIONS UNLABORED; ON 3LPM VIA NASAL CANNULA; IVF, LEVOPHED AND AMIODARONE INFUSING PER MD ORDERS. CALL LIGHT WITHIN REACH. WILL CONTINUE TO MONITOR PATIENT.
[2021-07-05 08:00] LABS: BASOPHILS % (AUTO) 0.2 % (0.0-2.0); EOSINOPHILS % (AUTO) 0.5 % (0.0-6.0); HEMATOCRIT 29 % (39-51); HEMOGLOBIN 9.5 g/dL (13.5-17.5); LYMPHOCYTES # (AUTO) 0.6 K/uL (0.8-4.8); LYMPHOCYTES % (AUTO) 7.1 % (20.0-44.0); MEAN CORPUSCULAR HGB CONC 33 g/dl (31.0-36.0); MEAN CORPUSCULAR VOLUME 85 fL (80-96); MONOCYTES # (AUTO) 0.5 K/uL (0.1-1.30); MONOCYTES % (AUTO) 6.1 % (2.0-12.0); NEUTROPHILS # (AUTO) 7.1 K/uL (1.8-8.9); NEUTROPHILS % (AUTO) 86.1 % (43.0-81.0); PLATELET COUNT (AUTO) 121 K/uL (150-450); RED BLOOD CELL COUNT(AUTO) 3.45 MIL/uL (4.5-6.0); WHITE BLOOD COUNT (AUTO) 8.3 K/uL (4.3-11.0)
--- NOTE | 2021-07-05 08:18 | NUR ---
RT RESP TXS HELD FOR HIGH HR OF 125. NO RESP DISTRESS NOTED.
[2021-07-05 08:32] LABS: CALCIUM, SERUM 8.1 mg/dL (8.5-10.1); CREATININE 1.3 mg/dL (0.6-1.3); POTASSIUM 4.1 mmol/L (3.5-5.1)
[2021-07-05] MEDS: ASPIRIN 81 MG TAB.CHEW GT SCH (08:47)
[2021-07-05] MEDS: AMIODARONE HCL 200 MG TABLET GT SCH (08:48)
[2021-07-05] MEDS: PANTOPRAZOLE 40 MG VIAL IV SCH (08:49)
[2021-07-05] MEDS: METHIMAZOLE (5MG) 5 MG TABLET GT SCH (08:49)
[2021-07-05] MEDS: APIXABAN 5 MG TABLET PO SCH ×2 (08:50→18:19)
[2021-07-05 09:06] LABS: ALBUMIN 2.1 g/dL (3.4-5.0); BILIRUBIN,DIRECT 0.2 mg/dL (0.0-0.2); BILIRUBIN,TOTAL 0.4 mg/dL (0.2-1.0); TOTAL PROTEIN, SERUM 6.5 g/dL (6.4-8.2)
--- NOTE | 2021-07-05 15:30 | NUR ---
RT PATIENT UNABLE TO PERFORM MDI INHALED TX. DOES NOT FOLLOW COMMANDS PROPERLY. NO SOB, HR IS ELEVATED.
--- NOTE | 2021-07-05 16:18 | NUR ---
RT SPUTUM SAMPLE TAKEN AND PLACED IN REFRIGERATOR. LAYTON MCKEON NOTIFIED
[2021-07-05] MEDS ORDERED: AMIODARONE 450 MG in IV D5W 241 ML IV PRN ×2 (18:00→19:00)
[2021-07-05] MEDS ORDERED: AMIODARONE 150 MG in IV D5W 100 ML IV ONE (18:00)
[2021-07-05] MEDS: VANCOMYCIN 1.25 GM in IV D5W 250 ML IV SCH (18:19)
--- NOTE | 2021-07-05 19:03 | NUR ---
END OF SHIFT NOTES: REPORT GIVEN TO INCOMING RN, PT. RESTING ON BED IN COMFORTABLE POSITION, NO SIGNIFICANT CHANGES NOTED AT THIS TIME; ALL DUE MEDS GIVEN PER MD ORDERS; HOURLY AND PRN ROUNDING DONE BY STAFF; CALL LIGHT WITHIN REACH. ENDORSED FOR CONTINUITY OF CARE.
--- NOTE | 2021-07-05 19:30 | NUR ---
RT NOTE PT UNABLE TO FOLLOW COMMANDS ON USING MDI. NO SOB NOTED. WILL CONTINUE TO MONITOR.
--- NOTE | 2021-07-05 19:51 | NUR ---
RN NOTE PATIENT IN BED ALERT AND ORIENTED X1. ON O2 3LPM VIA NASAL CANNULA, NO S/S OF RESPIRATORY DISTRESS. NO SIGNS OF DISCOMFORT. A-FIB UNCONTROLLED, HR 112, ON MONITOR. TORRES CATH INTACT AND PATENT, DRAINING URINE VIA GRAVITY. IV ACCESS ON MARQUEZ PICC AND LEFT HAND #20, IVF NS @ 75ML/HR INFUSING AND AMIO 1MG INFUSING. BED LOCKED AND IN LOWEST POSITION. CALL LIGHT WITHIN REACH. ALL NEEDS ANTICIPATED.
[2021-07-05] MEDS: CEFEPIME 2 GM in IV D5W 100 ML IV SCH (21:08)
[2021-07-05] MEDS: ATORVASTATIN 40 MG TABLET GT SCH (21:08)
[2021-07-05] MEDS: JEVITY 1.2 CAL 1,000 ML BOTTLE GT PRN (21:08)
--- NOTE | 2021-07-05 23:26 | NUR ---
RT NOTE MDI MEDICATION NOT GIVEN. PT UNABLE TO FOLLOW COMMANDS, PT CONFUSED. NO RESPIRATORY DISTRESS NOTED.
[2021-07-06] VITALS (26 sets, daily range): BP systolic 96–139; BP diastolic 51–81
[2021-07-06] MEDS: AMIODARONE 450 MG in IV D5W 241 ML IV PRN (02:44)
[2021-07-06] MEDS: ALBUTEROL SULFATE 8 GM HFA.AER.AD IH SCH ×3 (03:30→23:07)
[2021-07-06] MEDS: IPRATROPIUM BROMIDE 14 GM INHALER (or 12.9 GM) IH SCH ×3 (03:30→23:07)
--- NOTE | 2021-07-06 03:40 | NUR ---
RT NOTE NASOTRACHEAL SUCTION DONE. SMALL THICK WHITE YELLOW SECRETIONS NOTED. RN KENISHA ASSISTING. NO SOB NOTED.
[2021-07-06] MEDS: IV NS 0.9% 1,000 ML IV PRN (04:46)
[2021-07-06 05:03] LABS: BASOPHILS % (AUTO) 0.4 % (0.0-2.0); EOSINOPHILS % (AUTO) 0.7 % (0.0-6.0); HEMATOCRIT 29 % (39-51); HEMOGLOBIN 9.4 g/dL (13.5-17.5); LYMPHOCYTES # (AUTO) 0.6 K/uL (0.8-4.8); LYMPHOCYTES % (AUTO) 7.8 % (20.0-44.0); MEAN CORPUSCULAR HGB CONC 33 g/dl (31.0-36.0); MEAN CORPUSCULAR VOLUME 85 fL (80-96); MONOCYTES # (AUTO) 0.6 K/uL (0.1-1.30); MONOCYTES % (AUTO) 8.4 % (2.0-12.0); NEUTROPHILS # (AUTO) 6.3 K/uL (1.8-8.9); NEUTROPHILS % (AUTO) 82.7 % (43.0-81.0); PLATELET COUNT (AUTO) 100 K/uL (150-450); RED BLOOD CELL COUNT(AUTO) 3.38 MIL/uL (4.5-6.0); WHITE BLOOD COUNT (AUTO) 7.7 K/uL (4.3-11.0)
[2021-07-06 05:43] LABS: CALCIUM, SERUM 8.2 mg/dL (8.5-10.1); CREATININE 1.1 mg/dL (0.6-1.3); POTASSIUM 3.7 mmol/L (3.5-5.1)
--- NOTE | 2021-07-06 07:40 | NUR ---
RN NOTE PATIENT IN BED ALERT AND ORIENTED X1. ON O2 3LPM VIA NASAL CANNULA, NO S/S OF RESPIRATORY DISTRESS. TORRES CATH OUTPUT 500CC. IV ACCESS ON MARQUEZ PICC AND LEFT HAND #20, IVF NS @ 75ML/HR INFUSING AND AMIO 0.5MG INFUSING. BED LOCKED AND IN LOWEST POSITION. CALL LIGHT WITHIN REACH. ENDORSED TO AM SHIFT.
--- NOTE | 2021-07-06 08:00 | NUR ---
RN OPENING NOTE PT OBSERVED IN BED WITH HOB 30 DEGGREES. PT IS ON 3L HUMIDIFIED O2 VIA NC TOLERATING WELL WITH NO SIGNS OF DISTRESS OR LABORED BREATHING. FC IS IN PLACE DRAINING URINE TO GRAVITY. IV ACCESS MARQUEZ PICC; LEFT HAND 20G, INFUSING NS @ 75ML/HR INFUSING AND AMIO 0.5MG. BED LOCKED AND IN LOWEST POSITION, CALL LIGHT IS WITHIN REACH AND ALL HOSPITAL SAFETY PROTOCOLS ARE IN PLACE. WILL CONTINUE TO MONITOR THIS SHIFT.
[2021-07-06] MEDS: APIXABAN 5 MG TABLET PO SCH ×2 (09:16→18:06)
[2021-07-06] MEDS: PANTOPRAZOLE 40 MG/PACK PACK GT SCH (09:16)
[2021-07-06] MEDS: ASPIRIN 81 MG TAB.CHEW GT SCH (09:17)
[2021-07-06] MEDS: AMIODARONE HCL 200 MG TABLET GT SCH (09:17)
[2021-07-06] MEDS: METHIMAZOLE (5MG) 5 MG TABLET GT SCH (09:17)
--- NOTE | 2021-07-06 10:00 | NUR ---
RN NOTE: TRANSFER TO [facility] #[id number] PT IS STABLE AT THIS TIME AND ALL MEDICATIONS AND DOCUMENTS TRANSFERRED WITH PT TO ROOM #118. BEDSIDE REPORT GIVEN TO LAYTON WOOD.
[2021-07-06] MEDS: METOPROLOL TARTRATE 25 MG TABLET PO SCH ×2 (14:51→18:04)
[2021-07-06] MEDS: VANCOMYCIN 1.25 GM in IV D5W 250 ML IV SCH (18:06)
--- NOTE | 2021-07-06 18:49 | NUR ---
RN Closing Notes Patient is resting comfortably and is in no acute distress. Call light and tray table with personal belongings within reach. Patient was monitored throughout shift and vitals remained in patient's baseline. Interventions were completed as needed. All of the patient's needs have been met. Assistance was provided as needed. All due medications given per MD orders. Will endorsed to oncoming nurse.
--- NOTE | 2021-07-06 19:58 | NUR ---
ICE CREAM FREEZER ASSISTANT NOTE INCONTINENCE CARE GIVEN. NOTED PT SACRUM WITH EXCORIATION AND LOWER EXT'S WITH DISCOLORATION NOTED. PICTURES TAKEN AND PLACE THEM IN THE CHART. WOUND CONSULT TRIGGERED. KEPT HIM DRY AND CLEAN. CONTINUE TO MONITOR HIM.
--- NOTE | 2021-07-06 20:00 | NUR ---
TELE NURSING NOTE RECEIVED PT ON BED, A/O X 2, CONFUSED AT TIMES. NO SOB, NO DISTRESS OR DISCOMFORT NOTED, DENIES PAIN, ON 02 3L WITH A HUMIDIFIER VIA NC. O2 SAT 96%. LUNG SOUND WITH CRACKLES NOTED. KEPT HOB ELEVATED. GT FEEDING JEVITY INFUSING AT 30ML/HR, 0 AMOUNT RESIDUAL NOTED. VANCO IV PIGGYBACK IS INFUSING ORDERED. NO S/SX OF INFILTRATION NOTED. F/C INTACT AND PATENT, DRAINING YELLOWISH COLORED URINE WITH SOME SEDIMENT. MARQUEZ IS CONTRACTED. BILATERAL FEET WITH PITTING EDEMA +1 NOTED. KEPT LOWER EXTREMITY ELEVATED ON PILLOW. ON TELE PT REMAINS AFIB UNCONTROLLED, HR 123. PT S/P AMIO DRIP. REPOSITIONED FOR COMFORT AND SKIN MANAGEMENT Q2HR. KEPT PT DRY AND CLEAN. ALL NEEDS ATTENDED. SIDE RAILS UP X 2, CALL LIGHT WITHIN REACH, WILL CONTINUE TO MONITOR.
[2021-07-06] MEDS: CEFEPIME 2 GM in IV D5W 100 ML IV SCH (21:42)
[2021-07-06] MEDS: ATORVASTATIN 40 MG TABLET GT SCH (21:42)
[2021-07-07] VITALS: BP 145/57
[2021-07-07] MEDS: IV NS 0.9% 1,000 ML IV PRN ×2 (02:24→17:49)
[2021-07-07] MEDS: IPRATROPIUM BROMIDE 14 GM INHALER (or 12.9 GM) IH SCH (03:32)
[2021-07-07] MEDS: ALBUTEROL SULFATE 8 GM HFA.AER.AD IH SCH (03:34)
[2021-07-07 04:00] VITALS: BP 138/50
--- NOTE | 2021-07-07 07:30 | NUR ---
TIMBER MANAGEMENT PROFESSOR NOTE RECEIVED PT ON BED, A/O X 2. NO SOB, NO DISTRESS OR DISCOMFORT NOTED, DENIES PAIN. ON 02 INHALATION 3L/MIN VIA NC. O2 SAT 97%. KEPT HOB ELEVATED. GT FEEDING JEVITY INFUSING AT 30ML/HR. IV ACCESS MARQUEZ PICC LINE AND LEFT HAND # 20 INTACT.NO S/SX OF INFILTRATION NOTED. F/C INTACT AND PATENT, DRAINING YELLOWISH COLORED URINE . BILATERAL FEET WITH PITTING EDEMA +1 NOTED. KEPT LOWER EXTREMITY ELEVATED ON PILLOW. ON TELE MONITOR. PT S/P AMIO DRIP. REPOSITIONED FOR COMFORT AND SKIN MANAGEMENT Q2HR. KEPT PT DRY AND CLEAN. ALL NEEDS ATTENDED. SIDE RAILS UP X 2, CALL LIGHT AND TABLE IN REACH , WILL CONTINUE TO MONITOR.
--- NOTE | 2021-07-07 07:31 | NUR ---
DEHYDROGENATION OPERATOR HEAD NOTE PT IN BED, ASLEEP AND EASILY AROUSABLE. NO DISTRESS AND DISCOMFORT NOTED. DENIES PAIN. GT AND NS INFUSING WELL. ENDORSED TO DAY SHIFT NURSE TO CONTINUE TO MONITOR.
[2021-07-07 08:00] VITALS: BP 108/50
--- NOTE | 2021-07-07 08:28 | NUR ---
WOUND CARE CONSULT: PT PRESENTS WITH SACRAL SCARRING, PRESENT ON ADMISSION. SOME BROWNISH DISCOLORATION NOTED TO LOWER LEGS (HEMOSIDERIN STAINING), PRESENT ON ADMISSION. RECOMMENDATIONS MADE FOR SKIN PROTECTION. DISCUSSED WITH NURSING STAFF. PT IS ON [place] ISOFLEX LOW AIRLOSS BED.
[2021-07-07] MEDS: PANTOPRAZOLE 40 MG/PACK PACK GT SCH (09:26)
[2021-07-07] MEDS: ASPIRIN 81 MG TAB.CHEW GT SCH (09:26)
[2021-07-07] MEDS: METHIMAZOLE (5MG) 5 MG TABLET GT SCH (09:26)
[2021-07-07] MEDS: METOPROLOL TARTRATE 25 MG TABLET PO SCH ×3 (09:27→17:40)
[2021-07-07] MEDS: APIXABAN 5 MG TABLET PO SCH ×2 (09:31→17:40)
--- NOTE | 2021-07-07 11:30 | NUR ---
RN NOTES INFORMED DR. CHAVEZ DURING ROUND FOR THE PATIENT'S UNCONTROLLED AFIB 114. NO NEW ORDER WAS GIVEN.
[2021-07-07 12:00] VITALS: BP 113/50
[2021-07-07 12:46] LABS: BASOPHILS % (AUTO) 0.6 % (0.0-2.0); EOSINOPHILS % (AUTO) 0.9 % (0.0-6.0); HEMATOCRIT 27 % (39-51); HEMOGLOBIN 8.8 g/dL (13.5-17.5); LYMPHOCYTES # (AUTO) 0.6 K/uL (0.8-4.8); LYMPHOCYTES % (AUTO) 8.8 % (20.0-44.0); MEAN CORPUSCULAR HGB CONC 32 g/dl (31.0-36.0); MEAN CORPUSCULAR VOLUME 85 fL (80-96); MONOCYTES # (AUTO) 0.7 K/uL (0.1-1.30); MONOCYTES % (AUTO) 10.3 % (2.0-12.0); NEUTROPHILS # (AUTO) 5.6 K/uL (1.8-8.9); NEUTROPHILS % (AUTO) 79.4 % (43.0-81.0); PLATELET COUNT (AUTO) 97 K/uL (150-450); RED BLOOD CELL COUNT(AUTO) 3.22 MIL/uL (4.5-6.0); WHITE BLOOD COUNT (AUTO) 7.1 K/uL (4.3-11.0)
[2021-07-07 12:47] LABS: POTASSIUM 3.6 mmol/L (3.5-5.1)
[2021-07-07 16:32] VITALS: BP 108/76
[2021-07-07] MEDS: JEVITY 1.2 CAL 1,000 ML BOTTLE GT PRN (18:10)
--- NOTE | 2021-07-07 18:47 | NUR ---
SAGGER MAKER CLOSING NOTE PT ON BED, A/O X 2. NO SOB, NO DISTRESS OR DISCOMFORT NOTED, DENIES PAIN. ON 02 INHALATION 3L/MIN VIA NC. O2 SAT 95%. KEPT HOB ELEVATED. GT FEEDING JEVITY INFUSING AT 30ML/HR. IV ACCESS MARQUEZ PICC LINE AND LEFT HAND # 20 INTACT.NO S/SX OF INFILTRATION NOTED. F/C INTACT AND PATENT, DRAINING YELLOWISH COLORED URINE, OUTPUT 600 ML. . BILATERAL FEET WITH PITTING EDEMA +1 NOTED. KEPT LOWER EXTREMITY ELEVATED ON PILLOW. ON TELE MONITOR. WITH UNCONTROLLED AFIB. DR DAVIS AWARE. REPOSITIONED FOR COMFORT AND SKIN MANAGEMENT Q2HR. KEPT PT DRY AND CLEAN. ALL DUE MEDS GIVEN ORDERED. ALL NEEDS ATTENDED. SIDE RAILS UP X 2, CALL LIGHT AND TABLE IN REACH , WILL ENDORSE FOR NINO.
[2021-07-07] MEDS: VANCOMYCIN 1.25 GM in IV D5W 250 ML IV SCH (18:54)
[2021-07-07] MEDS ORDERED: DIGOXIN INJ 0.5 MG/2 ML AMPUL IV ONE (19:00)
[2021-07-07] MEDS: ALBUTEROL FS 2.5 MG/0.5 ML VIAL.NEB NEB SCH ×2 (19:30→23:17)
[2021-07-07 20:00] VITALS: BP 141/60
[2021-07-07] MEDS: IPRATROPIUM NEB FS 0.5 MG/2.5 ML AMPUL.NEB NEB SCH ×2 (20:12→23:16)
[2021-07-07] MEDS: CEFEPIME 2 GM in IV D5W 100 ML IV SCH (21:04)
[2021-07-07] MEDS: ATORVASTATIN 40 MG TABLET GT SCH (21:04)
[2021-07-07] MEDS ORDERED: IPRATROPIUM NEB FS 0.5 MG/2.5 ML AMPUL.NEB NEB SCH (23:30)
[2021-07-07] MEDS ORDERED: ALBUTEROL FS 2.5 MG/0.5 ML VIAL.NEB NEB SCH (23:30)
[2021-07-07] MEDS ORDERED: IPRATROPIUM BROMIDE 14 GM INHALER (or 12.9 GM) NEB SCH (23:30)
[2021-07-07] MEDS ORDERED: ALBUTEROL SULFATE 8 GM HFA.AER.AD NEB SCH (23:30)
[2021-07-08] VITALS: BP 143/60
--- NOTE | 2021-07-08 02:20 | NUR ---
RN NOTES, REPORT TO DR WOLF THAT PATIENT NOTED WITH 3 EPISODES VTACH, WITH 8-9 BEATS, PER MD TO CONTINUE TO MONITOR CLOSELY AND REPORT IF HR CONSISTENTLY MORE THAN 120.
[2021-07-08] MEDS: ALBUTEROL FS 2.5 MG/0.5 ML VIAL.NEB NEB SCH ×5 (03:30→20:32)
[2021-07-08 04:00] VITALS: BP 140/82
[2021-07-08] MEDS: IPRATROPIUM NEB FS 0.5 MG/2.5 ML AMPUL.NEB NEB SCH ×5 (04:09→20:30)
[2021-07-08 07:21] LABS: BASOPHILS % (AUTO) 0.3 % (0.0-2.0); EOSINOPHILS % (AUTO) 1.2 % (0.0-6.0); HEMATOCRIT 29 % (39-51); HEMOGLOBIN 9.4 g/dL (13.5-17.5); LYMPHOCYTES # (AUTO) 0.5 K/uL (0.8-4.8); LYMPHOCYTES % (AUTO) 7.2 % (20.0-44.0); MEAN CORPUSCULAR HGB CONC 33 g/dl (31.0-36.0); MEAN CORPUSCULAR VOLUME 85 fL (80-96); MONOCYTES # (AUTO) 0.6 K/uL (0.1-1.30); MONOCYTES % (AUTO) 8.5 % (2.0-12.0); NEUTROPHILS # (AUTO) 6.1 K/uL (1.8-8.9); NEUTROPHILS % (AUTO) 82.8 % (43.0-81.0); PLATELET COUNT (AUTO) 115 K/uL (150-450); WHITE BLOOD COUNT (AUTO) 7.4 K/uL (4.3-11.0)
--- NOTE | 2021-07-08 07:50 | NUR ---
PATIENT IN BED SLEEPING THIS TIME, ON 3LPM VIA NC WITH OPTIMAL O2 SAT LEVEL, AFIB UNCONTROL ON TELE MONITOR HR LOW 110 MOSTLY DURING THE NIGHT, CONT ON IV FLUID ORDERED, GT INFUSING WELL AND PATIENT TOLERATED WELL, KEPT ELEVATED HOB ASPIRATION PRECAUTION, EPISODES OF V-TACH REPORTED TO DR WOLF, AND NO NEW ORDERS RECEIVED, BUT TO CONT MONITOR CLOSELY, AND REPORT TO MD IF CONSISTENTLY MORE THAN 120BPM, BED LOCKED AND IN LOWEST POSITION, S/R UP X 2 FOR SAFETY. ALL SAFETY PRECAUTION MAINTAINED, CALL LIGHT WITHIN REACH, ENDORSED RUTH TRAYLOR FOR NINO
[2021-07-08 08:00] VITALS: BP 90/59
[2021-07-08 08:04] LABS: CALCIUM, SERUM 8.2 mg/dL (8.5-10.1); CREATININE 0.9 mg/dL (0.6-1.3); PHOSPHORUS 3.2 mg/dL (2.5-4.9); POTASSIUM 3.7 mmol/L (3.5-5.1)
--- NOTE | 2021-07-08 08:31 | NUR ---
RN OPENING NOTE PATIENT IN BED SLEEPING THIS TIME, ON 3LPM VIA NC O2 97%, GT INFUSING WELL AND PATIENT TOLERATING WELL KEPT ELEVATED HOB ASPIRATION PRECAUTION, EPISODES OF V-TACH REPORTED TO DR WOLF, AND NO NEW ORDERS RECEIVED, BUT TO CONT MONITOR CLOSELY, AND REPORT TO MD IF CONSISTENTLY MORE THAN 120BPM, BED LOCKED AND IN LOWEST POSITION, S/R UP X 2 FOR SAFETY.
[2021-07-08] MEDS: PANTOPRAZOLE 40 MG/PACK PACK GT SCH (10:03)
[2021-07-08] MEDS: ASPIRIN 81 MG TAB.CHEW GT SCH (10:04)
[2021-07-08] MEDS: METHIMAZOLE (5MG) 5 MG TABLET GT SCH (10:04)
[2021-07-08] MEDS: METOPROLOL TARTRATE 25 MG TABLET PO SCH ×2 (10:05→14:23)
[2021-07-08] MEDS: APIXABAN 5 MG TABLET PO SCH ×2 (10:11→18:07)
[2021-07-08 12:00] VITALS: BP 101/61
[2021-07-08] MEDS: CEFEPIME 2 GM in IV D5W 100 ML IV SCH (12:59)
[2021-07-08] MEDS: DIGOXIN 0.25 MG TABLET PO SCH (14:24)
--- NOTE | 2021-07-08 14:39 | NUR ---
sprutum culture shows Klebsiella pneumonia ESBL Dr Doshi was notified
[2021-07-08 16:00] VITALS: BP 106/68
[2021-07-08] MEDS ORDERED: POTASSIUM CHLORIDE 20 MEQ TAB.PRT.SR PO ONE (18:30)
[2021-07-08] MEDS: FUROSEMIDE 20 MG/2 ML VIAL IV SCH (19:21)
--- NOTE | 2021-07-08 19:50 | NUR ---
RN CLOSING NOTE PATIENT IN BED SLEEPING THIS TIME, ON 3LPM VIA NC O2 97%, GT INFUSING WELL AND PATIENT TOLERATING WELL KEPT ELEVATED HOB ASPIRATION PRECAUTION, EPISODES OF V-TACH REPORTED TO DR WOLF, AND NO NEW ORDERS RECEIVED, BUT TO CONT MONITOR CLOSELY, AND REPORT TO MD IF CONSISTENTLY MORE THAN 120BPM, BED LOCKED AND IN LOWEST POSITION, S/R UP X 2 FOR SAFETY. WILL ENDORSE TO NIGHT NURSE FOR NINO
[2021-07-08 20:00] VITALS: BP 132/64
--- NOTE | 2021-07-08 20:00 | NUR ---
RN NOTE RECEIVED PT IN BED, VERBALLY RESPONSIVE, AOX1. ON 2L NC VIA NC. NO SIGNS OF DISTRESS NOTED. DENIES ANY PAIN AT THIS TIME. PT ON TELE MONITORING, RECEIVED AFIB UNCONTROLLED WITH HR OF 115, PER AM NURSEMD IS AWARE. PT WITH GT PATENT AND INPLACE. ON JEVITY FEEDING OF 75ML/HR. NOTED WITH 60ML RESIDUALS. KEPT HOB ELEVATED. MARQUEZ PICC INTACT, ON NS 75ML/HR. TORRES IN PLACE, DRAINING YELLOW URINE. WILL CONTINUE TO MONITOR. ALL SAFETY MEASURES IN PLACE PER PROTOCOL.
[2021-07-08] MEDS: ATORVASTATIN 40 MG TABLET GT SCH (22:42)
[2021-07-08] MEDS: JEVITY 1.2 CAL 1,000 ML BOTTLE GT PRN (22:42)
[2021-07-09] VITALS: BP 117/70
[2021-07-09] MEDS: ALBUTEROL FS 2.5 MG/0.5 ML VIAL.NEB NEB SCH ×8 (00:22→23:10)
[2021-07-09] MEDS: IPRATROPIUM NEB FS 0.5 MG/2.5 ML AMPUL.NEB NEB SCH ×8 (00:22→23:10)
[2021-07-09] MEDS: CEFEPIME 2 GM in IV D5W 100 ML IV SCH ×2 (00:54→12:20)
--- NOTE | 2021-07-09 01:26 | NUR ---
RN NOTE PT WITH EPISODES OF VTACH FOR ABOUT 3 SECONDS. STILL UNCONTROLLED AFIB. PT WITH NO CHANGES IN LOC. NO CHEST PAIN. NOTIFIED SLEEVE TURNER DR WOLF, SUGGESTED TO CALL DR AKERS. AWAITING FOR RESPONSE. CHARGE NURSE AWARE.
[2021-07-09] MEDS ORDERED: METOPROLOL TARTRATE 50 MG TABLET GT ONE (02:20)
--- NOTE | 2021-07-09 02:21 | NUR ---
RN NOTE NOTIFIED DR WOLF AGAIN REGARDING PT FREQUENT EPISODES OF VTACH AND STILL AFIB UNCONTROLLED WITH HR OF 120S-130S. MD ORDERED TO GIVE LOPRESSOR 50MG VIA GT ONE TIME.
[2021-07-09 04:00] VITALS: BP 121/86
[2021-07-09] MEDS: IV NS 0.9% 1,000 ML IV PRN (06:42)
--- NOTE | 2021-07-09 07:03 | NUR ---
RN NOTE PT REMAINS IN BED, NO CHANGES IN LOC NOTED. PT CONTINUES ON TELE MONITORING, STILL SHOWS AFIB UNCONTROLLED. LOPRESSOR WERE GIVEN, NO EPISODES OF VTACH AFTER. PT WITH GT RESIDUALS OF 100ML, GT HELD. KEPT HOB ELEVATED. NO S/SX OF ASPIRATION NOTED. CONTINUE ON IVF NS AT 75ML/HR. PICC LINE REMAIN INTACT, INFUSING WELL. TORRES DRAINING WELL WITH CLEAR YELLOW URINE. ENDORSED TO NEXT SHIFT NURSE FOR NINO.
[2021-07-09 07:13] LABS: CALCIUM, SERUM 7.9 mg/dL (8.5-10.1); PHOSPHORUS 3.6 mg/dL (2.5-4.9)
[2021-07-09 07:29] LABS: BASOPHILS % (AUTO) 0.4 % (0.0-2.0); EOSINOPHILS % (AUTO) 1.8 % (0.0-6.0); HEMATOCRIT 31 % (39-51); HEMOGLOBIN 9.8 g/dL (13.5-17.5); LYMPHOCYTES # (AUTO) 0.7 K/uL (0.8-4.8); LYMPHOCYTES % (AUTO) 7.9 % (20.0-44.0); MEAN CORPUSCULAR HGB CONC 32 g/dl (31.0-36.0); MEAN CORPUSCULAR VOLUME 87 fL (80-96); MONOCYTES # (AUTO) 0.5 K/uL (0.1-1.30); MONOCYTES % (AUTO) 5.7 % (2.0-12.0); NEUTROPHILS # (AUTO) 7.5 K/uL (1.8-8.9); NEUTROPHILS % (AUTO) 84.2 % (43.0-81.0); PLATELET COUNT (AUTO) 141 K/uL (150-450); RED BLOOD CELL COUNT(AUTO) 3.55 MIL/uL (4.5-6.0); WHITE BLOOD COUNT (AUTO) 8.9 K/uL (4.3-11.0)
--- NOTE | 2021-07-09 07:45 | NUR ---
RN OPENING NOTE RECEIVED PATIENT RESTING IN BED. SEMI FOWLERS POSITION. PATIENT A/O X1 WITH PERIODS OF CONFUSION. ON 2 L NC. DOES NOT COMPLAINS OF PAIN OR SOB. G TUBE NOTED. TORRES CATHETER NOTED. IV ACCESS ON LEFT HAND 20G AND MARQUEZ PICC RUNNING 75MLS/HR OF NS. SAFETY MEASURES IN PLACE.BED ALARM ACTIVATED AND LOCKED IN THE LOWEST POSITION, 2 SIDE RAILS UP AND CALL LIGHT WITH IN REACH.
[2021-07-09 08:00] VITALS: BP 120/55
--- NOTE | 2021-07-09 08:30 | NUR ---
RN NOTE PATIENT NOTED TO HAVE HIGH G-TUBE RESIDUAL 100ML. TUBE FEEDING WILL BE HELD.
[2021-07-09] MEDS: FUROSEMIDE 20 MG/2 ML VIAL IV SCH ×2 (09:01→17:24)
[2021-07-09] MEDS: METOPROLOL TARTRATE 50 MG TABLET PO SCH ×2 (09:02→17:27)
[2021-07-09] MEDS: PANTOPRAZOLE 40 MG/PACK PACK GT SCH (09:03)
[2021-07-09] MEDS: METHIMAZOLE (5MG) 5 MG TABLET GT SCH (09:03)
[2021-07-09] MEDS: ASPIRIN 81 MG TAB.CHEW GT SCH (09:03)
[2021-07-09] MEDS: APIXABAN 5 MG TABLET PO SCH ×2 (09:04→17:25)
--- NOTE | 2021-07-09 10:30 | NUR ---
RN NOTE GT TUBE ASSESSED NO RESIDUAL TUBE FEEDING RESTARTED 25MLS/HR.
[2021-07-09 12:00] VITALS: BP 113/49
[2021-07-09] MEDS: DIGOXIN 0.25 MG TABLET PO SCH (12:20)
--- NOTE | 2021-07-09 12:31 | NUR ---
RN NOTE G TUBE ASSESSED NO RESIDUAL INCREASED FEEDING TO 35 MLS/HR
--- NOTE | 2021-07-09 14:35 | NUR ---
RN NOTE G TUBE ASSESSED NO RESIDUAL FEEDING INCREASED TO 55MLS.HR
[2021-07-09 16:00] VITALS: BP 122/73
--- NOTE | 2021-07-09 16:35 | NUR ---
RN NOTE G TUBE ASSESSED NOTED TO HAVE 30MLS OF RESIDUAL. WILL MAINTAIN FEEDING AT 55MLS/HR.
--- NOTE | 2021-07-09 18:00 | NUR ---
RN NOTE G TUBE ASSESSED NOTED TO HAVE 35 MLS OF RESIDUAL WILL MAINTAIN FEEDING AT 55MLS/HR.
[2021-07-09] MEDS: DILTIAZEM HCL 30 MG TABLET PO SCH (18:11)
--- NOTE | 2021-07-09 18:47 | NUR ---
RN CLOSING NOTE PATIENT RESTING IN BED. SEMI FOWLERS POSITION, ASPIRATION PRECAUTION IN PLACE. PATIENT A/O X1 WITH PERIODS OF CONFUSION. ON 2 L NC. DOES NOT COMPLAINS OF PAIN OR SOB. G TUBE RUNNING 55MLS HR. TORRES CATHETER NOTED. IV ACCESS ON LEFT HAND 20G AND MARQUEZ PICC RUNNING 75MLS/HR OF NS. ALL SCHEDULED MEDICATIONS GIVEN. SAFETY MEASURES IN PLACE.BED ALARM ACTIVATED AND LOCKED IN THE LOWEST POSITION, 2 SIDE RAILS UP AND CALL LIGHT WITH IN REACH. WILL ENDORSE TO NIGHT NURSE FOR NINO.
--- NOTE | 2021-07-09 19:10 | NUR ---
RN NOTE RECEIVED PATIENT IN BED, AO X 1, IN NO ACUTE DISTRESS AT THIS TIME. RESPIRATIONS UNLABORED, SATURATION AT 98% ON 2L VIA NC, SR ON THE MONITOR, HR IS 79. NOTED IV SITE AT L HAND 20G, AND MARQUEZ PICC LINE, ALL HUBS PATENT AND FLUSHING WELL, NO S/S OF INFECTION. NOTED GTUBE INTACT POSITIVE PLACEMENT NOTED, WITH RESIDUAL OF 20 ML, WITH TUBE FEEDING OF JEVITY 1.2 AT 55 ML/HR WITH A GOAL OF 75 ML/HR. TORRES CATHETER IN PLACE, DRAINING TO A CLEAR, YELLOW OUTPUT. SAFETY MEASURES IMPLEMENTED. PATIENT BED ALARM IS ON. HEAD OF BED ELEVATED. BED IS LOCKED, IN LOWEST POSITION AND SIDE RAILS UP. CALL LIGHT WITHIN REACH OF THE PATIENT. WILL CONTINUE TO MONITOR AND REASSESS FOR ANY CHANGES.
[2021-07-09 20:00] VITALS: BP 137/48
[2021-07-09] MEDS: ATORVASTATIN 40 MG TABLET GT SCH (21:13)
[2021-07-09] MEDS: JEVITY 1.2 CAL 1,000 ML BOTTLE GT PRN (22:46)
[2021-07-10] VITALS (7 sets, daily range): BP systolic 100–125; BP diastolic 48–69
[2021-07-10] MEDS: CEFEPIME 2 GM in IV D5W 100 ML IV SCH ×2 (00:23→12:16)
[2021-07-10] MEDS: IV NS 0.9% 1,000 ML IV PRN (00:30)
[2021-07-10] MEDS: DILTIAZEM HCL 30 MG TABLET PO SCH ×4 (00:34→17:03)
[2021-07-10] MEDS: IPRATROPIUM NEB FS 0.5 MG/2.5 ML AMPUL.NEB NEB SCH ×4 (03:43→15:30)
[2021-07-10] MEDS: ALBUTEROL FS 2.5 MG/0.5 ML VIAL.NEB NEB SCH ×4 (03:44→15:30)
[2021-07-10 06:44] LABS: CALCIUM, SERUM 8.1 mg/dL (8.5-10.1); CARBON DIOXIDE 23 mmol/L (21-32); CHLORIDE 110 mmol/L (98-107); GLUCOSE 134 mg/dL (74-106); MAGNESIUM 1.8 mg/dL (1.8-2.4); PHOSPHORUS 3.7 mg/dL (2.5-4.9); SODIUM SERUM 142 mmol/L (136-145); UREA NITROGEN, BLOOD 26 mg/dL (7-18)
[2021-07-10 06:51] LABS: BASOPHILS % (AUTO) 0.3 % (0.0-2.0); EOSINOPHILS % (AUTO) 2.6 % (0.0-6.0); HEMATOCRIT 28 % (39-51); HEMOGLOBIN 8.9 g/dL (13.5-17.5); LYMPHOCYTES % (AUTO) 8.7 % (20.0-44.0); MEAN CORPUSCULAR HGB CONC 32 g/dl (31.0-36.0); MEAN CORPUSCULAR VOLUME 86 fL (80-96); MONOCYTES # (AUTO) 0.5 K/uL (0.1-1.30); MONOCYTES % (AUTO) 4.8 % (2.0-12.0); NEUTROPHILS # (AUTO) 9.3 K/uL (1.8-8.9); NEUTROPHILS % (AUTO) 83.6 % (43.0-81.0); PLATELET COUNT (AUTO) 162 K/uL (150-450); RED BLOOD CELL COUNT(AUTO) 3.23 MIL/uL (4.5-6.0); WHITE BLOOD COUNT (AUTO) 11.1 K/uL (4.3-11.0)
[2021-07-10] MEDS: METOPROLOL TARTRATE 50 MG TABLET PO SCH ×2 (09:00→17:03)
[2021-07-10] MEDS: FUROSEMIDE 20 MG/2 ML VIAL IV SCH ×2 (09:46→17:02)
[2021-07-10] MEDS: METHIMAZOLE (5MG) 5 MG TABLET GT SCH (09:46)
[2021-07-10] MEDS: APIXABAN 5 MG TABLET PO SCH ×2 (09:46→17:05)
[2021-07-10] MEDS: PANTOPRAZOLE 40 MG/PACK PACK GT SCH (09:47)
[2021-07-10] MEDS: ASPIRIN 81 MG TAB.CHEW GT SCH (09:47)
[2021-07-10] MEDS: ACETAMINOPHEN 650 MG/20.3 ML UDC GT PRN (12:19)
[2021-07-10] MEDS: DIGOXIN 0.25 MG TABLET PO SCH (12:22)
[2021-07-10] MEDS ORDERED: CEFE2PIG2 IV (12:42)
[2021-07-10] MEDS ORDERED: ASPI-1169 GT (12:42)
[2021-07-10] MEDS ORDERED: DILT30TA14 PO (12:42)
[2021-07-10] MEDS ORDERED: Digoxin PO (12:42)
[2021-07-10] MEDS ORDERED: METO50TA16 PO (12:42)
[2021-07-10] MEDS ORDERED: FURO-145 PO (12:42)
--- NOTE | 2021-07-10 13:00 | NUR ---
telecommunicator supervisor note report given to snf by eliseo clement to an clement
--- NOTE | 2021-07-10 15:00 | NUR ---
RN opening notes Pt is laying in bed comfortably. Pt is alert and [id number] with episode of confusion. On 3 L NC. No SOB. No S/S of distress noted. MARQUEZ midline is clean, intact and flushes well. gaviria cath is in placed. gtube feeding in intact and running jevity@ 75 ml/hr with 0 residual. tele monitor showed afib hr at 72. PT will be DC today to [facility]. safety precautions is maintained. Bed at low position, brakes locked, side rails upX3, hob elevated and call light is within reach. Will continue to monitor.
--- NOTE | 2021-07-10 19:03 | NUR ---
RN DC notes 2 EMT's from [facility] (Lorena and other EMT) came to transport Pt to [facility]. VS is stable. No SOB. No S/S of distress noted. LAYTON Prabhakar gave report to facility. DC paperwork signed and given to EMT's. Per LAYTON Prabhakar kept MARQUEZ midline because Pt's having IV abx. Gtube is intact. Kern is intact. Pt is stable. IV site at R hand is removed and armband is removed.
== END 2021-07-10 20:31 | DRG 871 ==
LOC: ER 10:46 → ICU 17:02 → TELE-TD 07-06 09:48 → TELE1 07-06 19:00
PROVIDERS: ADMIT Nurse Practitioner Acute Care; ATTEND Student in an Organized Health Care Education/Training Program
PROC: 02HV33Z Insertion of Infusion Device into Superior Vena Cava, Percutaneous Approach (ICD-10-PCS; principal; 2021-07-03)
PROC: B548ZZA Ultrasonography of Superior Vena Cava, Guidance (ICD-10-PCS; 2021-07-03)
DX: A41.59 Other Gram-negative sepsis (principal); I21.A1 Myocardial infarction type 2; G92.8 Other toxic encephalopathy; I50.33 Acute on chronic diastolic (congestive) heart failure; N17.0 Acute kidney failure with tubular necrosis; R65.21 Severe sepsis with septic shock; J15.9 Unspecified bacterial pneumonia; J96.01 Acute respiratory failure with hypoxia; J69.0 Pneumonitis due to inhalation of food and vomit; D68.59 Other primary thrombophilia; N39.0 Urinary tract infection, site not specified; E44.0 Moderate protein-calorie malnutrition; E87.2 Acidosis; I47.2 Ventricular tachycardia; Z20.822 Contact with and (suspected) exposure to COVID-19; I25.10 Atherosclerotic heart disease of native coronary artery without angina pectoris; E78.5 Hyperlipidemia, unspecified; F32.A Depression, unspecified; G30.9 Alzheimer's disease, unspecified; F02.80 Dementia in other diseases classified elsewhere, unspecified severity, without behavioral disturbance, psychotic disturbance, mood disturbance, and anxiety; I73.9 Peripheral vascular disease, unspecified; Z66 Do not resuscitate; R13.10 Dysphagia, unspecified; H52.4 Presbyopia; H26.9 Unspecified cataract; Z91.041 Radiographic dye allergy status; Z79.01 Long term (current) use of anticoagulants; Z79.899 Other long term (current) drug therapy; Z86.73 Personal history of transient ischemic attack (TIA), and cerebral infarction without residual deficits; Z95.1 Presence of aortocoronary bypass graft; D63.8 Anemia in other chronic diseases classified elsewhere; I48.91 Unspecified atrial fibrillation; E03.9 Hypothyroidism, unspecified; I34.0 Nonrheumatic mitral (valve) insufficiency; F09 Unspecified mental disorder due to known physiological condition; N18.9 Chronic kidney disease, unspecified; Y95 Nosocomial condition; Z93.1 Gastrostomy status
CPT/HCPCS: 31720; 36415; 36569; 36600; 71045-TC; 80048-TC; 80053-TC; 80061-TC; 80076-TC; 80202-TC; 81001; 82803-TC; 82962-TC; 83605-TC; 83735-TC; 83880; 84100-TC; 84443-TC; 84484-TC; 85025-TC; 85730-TC; 87040-TC; 87070-TC; 87081-TC; 87086-TC; 87186-TC; 92526; 92611-TC; 93307-TC; 94640-TC; 94799-TC; C9113; C9803; G0378; J0282; J0692; J0696; J1160; J1650; J1940; J3370; J3490; J7030; J7050; J7060; U0003

== ENCOUNTER 2021-08-28 16:07 | Emergency (ER) | payer OTHER ==
[~2021-08-28] VITALS: Ht 177.8 cm; Wt 72.6 kg
[~2021-08-28 16:07] MED LIST changes: +AMIN30LI2 PO; -AMIO100T4 PO; +APIX5TAB PO; +ASPI-1169 GT; +CEFE2PIG2 IV; +DILT30TA14 PO; +Digoxin PO; +FURO-145 PO; -LEVO50TA8 PO; +METH10TA80 PO; +METO50TA16 PO; -MIRT-121 PO; +OMEP20TA5 PO; -PANT20TA2 PO
--- NOTE | 2021-08-28 16:13 | NUR ---
DEWEY FROM [facility] FOR WalltikUBE REPLACEMENT. PLACED ON BED RESPONDING TO VERBAL STIMULI ASKING QUESTION IN A REPEATITIVE WAY. BEDRIDDEN
--- NOTE | 2021-08-28 16:55 | NUR ---
G-TUBE REPLACED BY DR VAZ [id number]
[2021-08-28] MEDS ORDERED: DIATR MEGLU/DIATRIZOATE SODIUM 30 ML BOTTLE (GASTROGRAPHIN) ONE (17:17)
--- NOTE | 2021-08-28 17:58 | NUR ---
[facility] CALLED FOR TRANSPORT ETA 90 MINS
--- NOTE | 2021-08-28 19:20 | NUR ---
REPORT GIVEN TO LAYTON COE- [facility] [phone]
--- NOTE | 2021-08-28 19:33 | NUR ---
PATIENT DISCHARGE TO [facility] REPORT GIVEN TO AMBULANCE STAFF
--- NOTE | 2021-08-28 19:35 | NUR ---
PT LEFT ON GURNEY WITH 2 CHOCOLATE DIPPER ON STABLE CONDITION. NO DISTRESS NOTED
[2021-08-28 19:37] VITALS: BP 140/70
== END 2021-08-28 19:38 | disposition home health service (06) ==
LOC: ER 16:17
DX: K94.23 Gastrostomy malfunction (principal); I11.0 Hypertensive heart disease with heart failure; I50.9 Heart failure, unspecified; E78.5 Hyperlipidemia, unspecified; Z86.69 Personal history of other diseases of the nervous system and sense organs; Z95.1 Presence of aortocoronary bypass graft; Z88.8 Allergy status to other drugs, medicaments and biological substances; Z79.899 Other long term (current) drug therapy
CPT/HCPCS: 43762; 74018; 99284; Q9963

== ENCOUNTER 2021-08-31 14:12 | Emergency (ER) | payer MEDICARE, OTHER ==
[~2021-08-31] VITALS: Ht 177.8 cm; Wt 72.6 kg
--- NOTE | 2021-08-31 14:15 | NUR ---
TO ER BED 2. BIB PA FOR G-TUBE REPLACEMENT,DISLODGED LAST NIGHT. PT HAS HX OF PULLING OUT HIS GTUBE, A&OX2, VITALS ARE WITHIN NORMAL LIMITS.
--- NOTE | 2021-08-31 14:33 | NUR ---
DR GAGE AT BEDSIDE FOR G TUBE REPLACEMENT.
--- NOTE | 2021-08-31 15:00 | NUR ---
RAD. TECH AT BEDSIDE.
[2021-08-31] MEDS ORDERED: DIATR MEGLU/DIATRIZOATE SODIUM 30 ML BOTTLE (GASTROGRAPHIN) ONE (15:10)
[2021-08-31 15:41] VITALS: BP 147/81
--- NOTE | 2021-08-31 15:51 | NUR ---
ELBERT ARRIVED TO TAKE PT BACK TO FACILITY. PT TRANSPORTED IN STABLE CONDITION.
== END 2021-08-31 15:53 ==
LOC: ER 14:14
DX: K94.23 Gastrostomy malfunction (principal); I11.0 Hypertensive heart disease with heart failure; I50.9 Heart failure, unspecified; I48.91 Unspecified atrial fibrillation; E78.5 Hyperlipidemia, unspecified; Z86.69 Personal history of other diseases of the nervous system and sense organs; Z95.1 Presence of aortocoronary bypass graft; Z88.8 Allergy status to other drugs, medicaments and biological substances; Z79.899 Other long term (current) drug therapy
CPT/HCPCS: 43762; 74018 ×2; 99284; Q9963

== ENCOUNTER 2021-10-28 18:49 | Inpatient (IN) | payer MEDICARE, OTHER ==
[~2021-10-28] VITALS: Ht 182.9 cm; Wt 81.6 kg
--- NOTE | 2021-10-28 18:59 | NUR ---
TO ER BED 8. DEEPALI FROM SNF, PER EMS REPORT, NOTED O2 DESATURATION SINCE THIS MORNING. PT SATTING 93% ON 2L NS. ATTACHED TO MONITOR, VITALS ARE WITHIN NORMAL LIMITS. AWAITING MD TALBOT.
--- NOTE | 2021-10-28 19:38 | NUR ---
ANISA (SON) FOR UPDATES
--- NOTE | 2021-10-28 19:46 | NUR ---
CDL TEAM TRUCK DRIVER AT PT'S BEDSIDE
--- NOTE | 2021-10-28 19:48 | NUR ---
CHIP MACHINE OPERATOR AT PT'S BEDSIDE
[2021-10-28 20:24] LABS: BASOPHILS # (AUTO) 0.1 K/uL (0.0-0.2); BASOPHILS % (AUTO) 0.9 % (0.0-2.0); EOSINOPHILS % (AUTO) 1.8 % (0.0-6.0); HEMATOCRIT 27 % (39-51); LYMPHOCYTES # (AUTO) 0.8 K/uL (0.8-4.8); LYMPHOCYTES % (AUTO) 9.3 % (20.0-44.0); MEAN CORPUSCULAR HGB CONC 33 g/dl (31.0-36.0); MEAN CORPUSCULAR VOLUME 81 fL (80-96); MONOCYTES # (AUTO) 0.7 K/uL (0.1-1.30); MONOCYTES % (AUTO) 8.1 % (2.0-12.0); NEUTROPHILS # (AUTO) 6.8 K/uL (1.8-8.9); NEUTROPHILS % (AUTO) 79.9 % (43.0-81.0); PLATELET COUNT (AUTO) 225 K/uL (150-450); RED BLOOD CELL COUNT(AUTO) 3.37 MIL/uL (4.5-6.0); WHITE BLOOD COUNT (AUTO) 8.5 K/uL (4.3-11.0)
[2021-10-28 20:31] LABS: CALCIUM, SERUM 8.5 mg/dL (8.5-10.1); CARBON DIOXIDE 29 mmol/L (21-32); CHLORIDE 92 mmol/L (98-107); CREATININE 0.9 mg/dL (0.6-1.3); GLUCOSE 135 mg/dL (74-106); POTASSIUM 4.5 mmol/L (3.5-5.1); SODIUM SERUM 129 mmol/L (136-145); UREA NITROGEN, BLOOD 32 mg/dL (7-18)
[2021-10-28 20:44] LABS: ALANINE AMINOTRANSFERASE 23 U/L (12-78); ALBUMIN 2.6 g/dL (3.4-5.0); ALKALINE PHOSPHATASE 113 U/L (46-116); ASPARTATE AMINOTRANSFERASE 18 U/L (15-37); BILIRUBIN,DIRECT 0.1 mg/dL (0.0-0.2); BILIRUBIN,TOTAL 0.3 mg/dL (0.2-1.0); TOTAL PROTEIN, SERUM 8.3 g/dL (6.4-8.2)
--- NOTE | 2021-10-28 20:57 | NUR ---
COVID ANTIGEN SWAB COLLECTED AND SENT TO LAB
[2021-10-28 22:00] VITALS: BP 147/62
--- NOTE | 2021-10-28 22:22 | NUR ---
REPORT GIVEN TO KATY KellyW RN FOR NINO
--- NOTE | 2021-10-28 22:27 | NUR ---
CALLED ANISA ColeSON) [phone] AND GAVE UPDATE REGARDING PT'S ADMISSION. LEFT VOICEMAIL TO JOY (SON) Addendum: 10/28/21 at 2247 by NORBERTO CALLED ANISA ColeSON) [phone] AND GAVE UPDATE REGARDING PT'S ADMISSION. LEFT VOICEMAIL TO JAMYIE ColeSON) [phone]
--- NOTE | 2021-10-28 22:44 | NUR ---
PT TRANSFERRING TO [facility]W VIA HOSPITAL PROTOCOL. VSS. ALL BELONGINGS WITH PT.
[2021-10-28 23:00] VITALS: BP 147/62
[2021-10-28] MEDS ORDERED: MAG HYDROX/AL HYDROX/SIMETH 30 ML UDC PO PRN (23:00)
[2021-10-28] MEDS ORDERED: ACETAMINOPHEN 325 MG TABLET PO PRN (23:00)
[2021-10-28] MEDS ORDERED: ONDANSETRON HCL/PF 4 MG/2 ML VIAL IVP PRN (23:00)
[2021-10-28] MEDS ORDERED: MAGNESIUM HYDROXIDE 30 ML UDC PO PRN (23:00)
[2021-10-28] MEDS ORDERED: Z GUARD REMEDY 4 OZ OINT TP PRN (23:00)
[2021-10-28] MEDS ORDERED: FUROSEMIDE 20 MG/2 ML VIAL IV ONE (23:05)
[2021-10-28] MEDS ORDERED: BISACODYL SUPP (10 MG) 10 MG/SUPP.RECT SUPP.RECT RC PRN (23:30)
--- NOTE | 2021-10-28 23:30 | NUR ---
SENIOR HARDWARE ENGINEERCORE LOADER NOTES: RECEIVED PATIENT VIA GURNEY FROM ER ON STABLE CONDITION, PATIENT ON O2 INHALATION AT 2LPM VIA NASAL CANNULA SATURATING WELL, PLACED IN BED COMFORTABLY NO COMPLAIN OF PAIN AND DISCOMFORT AT THIS TIME, NO FACIAL GRIMACING WAS OBSERVED, PATIENT IS A/O X1-2 RESPONSIVE TO OWN ABILITY, ON TELE MONITOR SR-65 WITH FIRST DEGREE BLOCK NO SYMPTOMS WAS OBSERVED, SKIN ASSESSMENT DONE, AND DOCUMENTED. NO PERSONAL BELONGINGS WAS TURNOVER AT ER, PLACED COMFORTABLY IN BED AT LOW POSITION, PATIENT WAS ORIENTED TO PLACED REMIND TO USE THE CALL LIGHTS WHEN NEEDED ASSISTANCE, PATIENT KEPT CLEAN AND DRY ALL NEED MET WILL CONTINUE TO MONITOR.
[2021-10-29] VITALS (8 sets, daily range): BP systolic 107–128; BP diastolic 56–79
[2021-10-29] MEDS ORDERED: DILTIAZEM HCL 30 MG TABLET PO SCH
--- NOTE | 2021-10-29 | NUR ---
RN NOTES: DURING ASSESSMENT PATIENT WAS NOTED WITH G TUBE CONNECTION NOTIFIED HOSPITALIST AND VERIFIED TO PLACE OF ORIGIN ([facility]) TO CONFIRM HOW THE PATIENT WAS TAKING FOOD, RELAY TO STEEL FINISHER KAMINSKI AND ORDERED TO PLACE PATIENT ON NPO DIET CHANGE TO G TUBE FEEDING AND CHANGE MEDS TO PEG, START THE G TUBE FEEDING OF JEVITY 1.2 @75ML/HR X20HR (RATE FROM [facility] C/O ZENAIDA) NOTED AND CARRY OUT.
[2021-10-29] MEDS: JEVITY 1.2 CAL 1,000 ML BOTTLE GT PRN (02:12)
[2021-10-29] MEDS: POLYVINYL ALCOHOL 15 ML BOTTLE EACHEYE SCH ×3 (05:00→21:51)
--- NOTE | 2021-10-29 05:22 | NUR ---
RN NOTES: NEW ADMITTED PATIENT EYE DROPS LUBRICANT NOT AVAILABLE AWAITNG FOR PHARMACY TO DELIVER
[2021-10-29] MEDS: DILTIAZEM HCL 30 MG TABLET GT SCH ×3 (05:54→17:05)
--- NOTE | 2021-10-29 06:33 | NUR ---
PANTOGRAPHER CLOSING NOTES: PATIENT SLEEP IN BED COMFORTABLY, AROUSABLE TO VERBAL STIMULI, BED IN LOW POSITION CALL LIGHTS WITHIN REACH, NO COMPLAIN OF PAIN AND DISCOMFORT ON O2 INHALATION AT 2LPM SATURATING AT 96%, NPO ON GTUBE FEEDING OF JEVITY 1.2@75ML/HR INFUSING WELL, HOB AT 45 DEGREE AT ALL TIME ON TELE MONITOR- SR-70 WITH 1AVB& BBB NO SYMPTOMS WAS OBSERVED, PATIENT KEPT CLEAN AND DRY ALL NEEDS MET, ENDORSE TO INCOMING SHIFT.
[2021-10-29 06:39] LABS: BASOPHILS % (AUTO) 0.4 % (0.0-2.0); EOSINOPHILS % (AUTO) 2.4 % (0.0-6.0); HEMATOCRIT 27 % (39-51); LYMPHOCYTES # (AUTO) 0.7 K/uL (0.8-4.8); LYMPHOCYTES % (AUTO) 10.5 % (20.0-44.0); MEAN CORPUSCULAR HGB CONC 33 g/dl (31.0-36.0); MEAN CORPUSCULAR VOLUME 81 fL (80-96); MONOCYTES # (AUTO) 0.6 K/uL (0.1-1.30); MONOCYTES % (AUTO) 8.2 % (2.0-12.0); NEUTROPHILS # (AUTO) 5.4 K/uL (1.8-8.9); NEUTROPHILS % (AUTO) 78.5 % (43.0-81.0); PLATELET COUNT (AUTO) 223 K/uL (150-450); RED BLOOD CELL COUNT(AUTO) 3.36 MIL/uL (4.5-6.0); WHITE BLOOD COUNT (AUTO) 6.9 K/uL (4.3-11.0)
[2021-10-29 07:02] LABS: CALCIUM, SERUM 8.7 mg/dL (8.5-10.1); CREATININE 0.8 mg/dL (0.6-1.3); MAGNESIUM 2.3 mg/dL (1.8-2.4)
[2021-10-29 07:23] LABS: CHOLESTEROL 110 mg/dL (<200); FERRITIN 326 ng/mL (8-388); HDL CHOLESTEROL 28 mg/dL (40-60); LDL 68 mg/dL (0-99); TRIGLYCERIDES 81 mg/dL (30-150)
[2021-10-29] MEDS ORDERED: PANTOPRAZOLE 40 MG TABLET.DR PO SCH (07:30)
--- NOTE | 2021-10-29 07:30 | NUR ---
MACHINE HOSE CUTTER OPENING NOTES: RECEIVED PATIENT IN BED ASLEEP EASY TO AROUSED WITH STIMULI,NO SOB OR CARDIAC DISTRESS NOTED, ON O2 INHALATION @2LPM VIA NC. PATIENT ON G-TUBE FEEDING JEVITY 1.2 @75ML/HR AND TOLERATING WELL. WITH LEFT HAND IV ACCESS G20 PATENT AND INTACT ANS SALINE LOCKED. KEPT RESTED AND COMFORTABLE, SAFETY PRECAUTIONS MAINTAINED: BED ON SEMI-METCALF'S POSITION, BED LOCKED AND IN LOWEST POSITION, SIDE RAILS UP X 2. CALL LIGHT IN EASY REACH FOR HELP/ASSISTANCE. WILL MONITOR PT ACCORDINGLY.
[2021-10-29 08:09] LABS: THYROID STIMULATING HORMONE 35.604 uIU/mL (0.358-3.74)
[2021-10-29] MEDS: PANTOPRAZOLE 40 MG VIAL IV SCH (08:17)
[2021-10-29] MEDS: ASPIRIN 81 MG TAB.CHEW GT SCH (08:19)
[2021-10-29] MEDS: METHIMAZOLE (5MG) 5 MG TABLET GT SCH (08:19)
[2021-10-29] MEDS: CHOLECALCIFEROL 1,000 UNIT TABLET (VIT D3) GT SCH (08:19)
[2021-10-29] MEDS: THIAMINE HCL 100 MG TABLET PO SCH (08:19)
[2021-10-29] MEDS: MULTIVIT W/MINERALS 1 TAB TABLET PO SCH (08:19)
[2021-10-29] MEDS: METOPROLOL TARTRATE 50 MG TABLET GT SCH ×2 (08:20→21:52)
[2021-10-29] MEDS: ASCORBIC ACID 500 MG TABLET GT SCH (08:20)
[2021-10-29] MEDS: APIXABAN 5 MG TABLET GT SCH ×2 (08:25→21:54)
[2021-10-29] MEDS ORDERED: DOCUSATE SODIUM 100 MG CAPSULE PO SCH (09:00)
[2021-10-29] MEDS ORDERED: CHOLECALCIFEROL 1,000 UNIT TABLET (VIT D3) PO SCH (09:00)
[2021-10-29] MEDS ORDERED: METOPROLOL TARTRATE 50 MG TABLET PO SCH (09:00)
[2021-10-29] MEDS ORDERED: METHIMAZOLE (5MG) 5 MG TABLET PO SCH (09:00)
[2021-10-29] MEDS ORDERED: APIXABAN 5 MG TABLET PO SCH (09:00)
[2021-10-29] MEDS ORDERED: ASCORBIC ACID 500 MG TABLET PO SCH (09:00)
[2021-10-29] MEDS: FUROSEMIDE 20 MG/2 ML VIAL IV SCH (09:13)
[2021-10-29] MEDS: DIGOXIN 0.125 MG TABLET GT SCH (12:57)
[2021-10-29] MEDS ORDERED: DIGOXIN 0.125 MG TABLET PO SCH (13:00)
[2021-10-29] MEDS ORDERED: ACETAMINOPHEN 650 MG/20.3 ML UDC GT PRN (15:00)
[2021-10-29] MEDS: DOCUSATE SODIUM LIQ 100 MG/10 ML UDC GT SCH (16:51)
--- NOTE | 2021-10-29 18:31 | NUR ---
BRAZER RESISTANCE CLOSING NOTES: PATIENT IN BED ASLEEP EASY TO AROUSED WITH STIMULI,NO SOB OR CARDIAC DISTRESS NOTED, ON O2 INHALATION @2LPM VIA NC. PT MAINTAINED ON HIGH METCALF'S POSITION. PATIENT ON G-TUBE FEEDING JEVITY 1.2 @75ML/HR AND TOLERATING WELL. WITH LEFT HAND IV ACCESS G20 PATENT, INTACT AND SALINE LOCKED. ON LAUNDRY SORTER WITH CURRENT READING SINUS RHYTHM WITH PVCS 74 BPM. SAFETY PRECAUTIONS MAINTAINED: BED LOCKED AND IN LOWEST POSITION, SIDE RAILS UP X 2. CALL LIGHT IN EASY REACH FOR HELP/ASSISTANCE. ENDORSED TO MANAGER STRATEGIC SOURCING NURSE FOR NINO.
--- NOTE | 2021-10-29 19:10 | NUR ---
TELE/RN OPENING NOTE RECEIVED PATIENT RESTING IN BED. AWAKE, ALERT AND ORIENTED TO NAME ONLY. NO S/SX OF PAIN NOTED AT THIS TIME. CONTINUES ON 2L O2 VIA NC WITH NO S/SX OF RESPIRATORY DISTRESS NOTED. IV ACCESS TO LEFT HAND #22G INTACT, PATENT AND SALINE LOCKED. CONTINUES ON GT FEEDING JEVITY 1.2 @ 75ML/HR. NO RESIDUAL NOTED AT THIS TIME. CONTINUES ON TELE MONITOR WITH CURRENT READING SR. HOB ELEVATED FOR ASPIRATION PRECAUTIONS. CALL LIGHT WITHIN REACH. ASPIRATION, FALL AND SAFETY PRECAUTIONS MAINTAINED. ALL NEEDS ATTENDED TO AT THIS TIME.
[2021-10-29] MEDS: ATORVASTATIN 40 MG TABLET GT SCH (21:51)
[2021-10-29] MEDS ORDERED: ATORVASTATIN 40 MG TABLET PO SCH (22:00)
[2021-10-30] VITALS (9 sets, daily range): BP systolic 90–152; BP diastolic 48–89
[2021-10-30] MEDS: DILTIAZEM HCL 30 MG TABLET GT SCH ×4 (01:06→17:01)
[2021-10-30] MEDS: JEVITY 1.2 CAL 1,000 ML BOTTLE GT PRN ×2 (01:08→22:10)
[2021-10-30] MEDS: POLYVINYL ALCOHOL 15 ML BOTTLE EACHEYE SCH ×3 (05:15→21:26)
--- NOTE | 2021-10-30 06:10 | NUR ---
TELE/RN CLOSING NOTE PATIENT CURRENTLY SLEEPING IN BED. ALERT AND ORIENTED TO NAME. NO S/SX OF PAIN NOTED AT THIS TIME. CONTINUES ON 2L O2 VIA NC WITH NO S/SX OF RESPIRATORY DISTRESS NOTED. IV ACCESS TO LEFT HAND #22G INTACT, PATENT AND SALINE LOCKED. CONTINUES ON GT FEEDING JEVITY 1.2 @ 75ML/HR. NO RESIDUAL NOTED AT THIS TIME. CONTINUES ON TELE MONITOR WITH CURRENT READING SR. HOB ELEVATED FOR ASPIRATION PRECAUTIONS. CALL LIGHT WITHIN REACH. ASPIRATION, FALL AND SAFETY PRECAUTIONS MAINTAINED. WILL ENDORSE PLAN OF CARE TO ONCOMING SHIFT RN.
[2021-10-30] MEDS: PANTOPRAZOLE 40 MG VIAL IV SCH (07:13)
--- NOTE | 2021-10-30 07:30 | NUR ---
MARKETING SUPPORT COORDINATOR OPENING NOTES: RECEIVED PATIENT IN BED ASLEEP EASY TO AROUSED WITH STIMULI,PT A/O X 1 WITH EPISODES OF CONFUSION/FORGETFULNESS.NO SOB OR CARDIAC DISTRESS NOTED, ON O2 INHALATION @2LPM VIA NC. PATIENT ON G-TUBE FEEDING JEVITY 1.2 @75ML/HR AND TOLERATING WELL. WITH LEFT HAND IV ACCESS G20 PATENT AND INTACT ANS SALINE LOCKED. KEPT RESTED AND COMFORTABLE, SAFETY PRECAUTIONS MAINTAINED: BED ON SEMI-METCALF'S POSITION, BED LOCKED AND IN LOWEST POSITION, SIDE RAILS UP X 2. CALL LIGHT IN EASY REACH FOR HELP/ASSISTANCE. WILL MONITOR PT ACCORDINGLY.
[2021-10-30] MEDS: ASPIRIN 81 MG TAB.CHEW GT SCH (08:24)
[2021-10-30] MEDS: FUROSEMIDE 20 MG/2 ML VIAL IV SCH (08:24)
[2021-10-30] MEDS: ASCORBIC ACID 500 MG TABLET GT SCH (08:24)
[2021-10-30] MEDS: DOCUSATE SODIUM LIQ 100 MG/10 ML UDC GT SCH ×2 (08:24→16:52)
[2021-10-30] MEDS: MULTIVIT W/MINERALS 1 TAB TABLET PO SCH (08:25)
[2021-10-30] MEDS: THIAMINE HCL 100 MG TABLET PO SCH (08:25)
[2021-10-30] MEDS: METHIMAZOLE (5MG) 5 MG TABLET GT SCH (08:26)
[2021-10-30] MEDS: METOPROLOL TARTRATE 50 MG TABLET GT SCH ×2 (08:26→21:24)
[2021-10-30] MEDS: APIXABAN 5 MG TABLET GT SCH ×2 (08:27→21:21)
[2021-10-30 08:59] LABS: BASOPHILS % (AUTO) 0.5 % (0.0-2.0); EOSINOPHILS % (AUTO) 2.7 % (0.0-6.0); HEMATOCRIT 28 % (39-51); HEMOGLOBIN 9.3 g/dL (13.5-17.5); LYMPHOCYTES # (AUTO) 0.7 K/uL (0.8-4.8); LYMPHOCYTES % (AUTO) 10.5 % (20.0-44.0); MEAN CORPUSCULAR HGB CONC 34 g/dl (31.0-36.0); MEAN CORPUSCULAR VOLUME 82 fL (80-96); MONOCYTES # (AUTO) 0.7 K/uL (0.1-1.30); MONOCYTES % (AUTO) 10.2 % (2.0-12.0); NEUTROPHILS # (AUTO) 5.4 K/uL (1.8-8.9); NEUTROPHILS % (AUTO) 76.1 % (43.0-81.0); PLATELET COUNT (AUTO) 232 K/uL (150-450); RED BLOOD CELL COUNT(AUTO) 3.36 MIL/uL (4.5-6.0)
[2021-10-30] MEDS: CHOLECALCIFEROL 1,000 UNIT TABLET (VIT D3) GT SCH (09:21)
[2021-10-30 11:09] LABS: CALCIUM, SERUM 8.5 mg/dL (8.5-10.1); CREATININE 0.9 mg/dL (0.6-1.3); POTASSIUM 3.9 mmol/L (3.5-5.1)
[2021-10-30] MEDS: DIGOXIN 0.125 MG TABLET GT SCH (12:17)
--- NOTE | 2021-10-30 18:31 | NUR ---
EGG PROCESSOR CLOSING NOTES: PATIENT IN BED ASLEEP EASY TO AROUSED WITH STIMULI,NO SOB OR CARDIAC DISTRESS NOTED, ON O2 INHALATION @2LPM VIA NC. PT MAINTAINED ON HIGH METCALF'S POSITION. PATIENT ON G-TUBE FEEDING JEVITY 1.2 @75ML/HR AND TOLERATING WELL. WITH LEFT HAND IV ACCESS G20 PATENT, INTACT AND SALINE LOCKED. ON MACHINING AND ASSEMBLY SUPERVISOR WITH CURRENT READING SINUS RHYTHM 69 BPM. KEPT RESTED , CLEAN AND COMFORTABLE. SAFETY PRECAUTIONS MAINTAINED: BED LOCKED AND IN LOWEST POSITION, SIDE RAILS UP X 2. CALL LIGHT IN EASY REACH FOR HELP/ASSISTANCE. ENDORSED TO JUTE BAG SEWER NURSE FOR NINO.
--- NOTE | 2021-10-30 19:30 | NUR ---
MS RN NOTES RECEIVED ON BED WITH HOB ELEVATED.A/O X1,CONFUSED AND FORGETFUL.GT FEEDING OF JEVITY 1.2 IN PROGRESS AT 75ML/HR RATE TOLERATED WELL.NO RESIDUAL VOLUME NOTED,SALINE LOCK LEFT HAND INTACT AND PATENT.INCONTINENT OF URINE AND BOWEL.SR WITH PVC ON TELE MONITOR,RATE-75.WILL CONTINUE TO MONITOR STATUS.
[2021-10-30] MEDS: ATORVASTATIN 40 MG TABLET GT SCH (21:24)
[2021-10-31] VITALS (8 sets, daily range): BP systolic 104–148; BP diastolic 34–57
[2021-10-31] MEDS: DILTIAZEM HCL 30 MG TABLET GT SCH ×5 (00:16→23:49)
[2021-10-31] MEDS: POLYVINYL ALCOHOL 15 ML BOTTLE EACHEYE SCH ×3 (04:28→21:13)
--- NOTE | 2021-10-31 06:19 | NUR ---
CLAIM ADJUSTER NOTES MORNING CARE RENDERED,REPOSITION PER PROTOCOL,GT FEEDING TOLERATED WELL,NO DIARRHEA NOTED,DNR/DNI STATUS,IN NO ACUTE DISTRESS.
[2021-10-31 06:50] LABS: BASOPHILS % (AUTO) 0.4 % (0.0-2.0); EOSINOPHILS % (AUTO) 3.2 % (0.0-6.0); HEMATOCRIT 26 % (39-51); HEMOGLOBIN 8.5 g/dL (13.5-17.5); LYMPHOCYTES # (AUTO) 0.8 K/uL (0.8-4.8); LYMPHOCYTES % (AUTO) 11.5 % (20.0-44.0); MEAN CORPUSCULAR HGB CONC 33 g/dl (31.0-36.0); MEAN CORPUSCULAR VOLUME 82 fL (80-96); MONOCYTES # (AUTO) 0.7 K/uL (0.1-1.30); MONOCYTES % (AUTO) 9.5 % (2.0-12.0); NEUTROPHILS # (AUTO) 5.2 K/uL (1.8-8.9); NEUTROPHILS % (AUTO) 75.4 % (43.0-81.0); PLATELET COUNT (AUTO) 218 K/uL (150-450); RED BLOOD CELL COUNT(AUTO) 3.14 MIL/uL (4.5-6.0); WHITE BLOOD COUNT (AUTO) 6.9 K/uL (4.3-11.0)
[2021-10-31 06:59] LABS: CALCIUM, SERUM 8.5 mg/dL (8.5-10.1); CREATININE 0.9 mg/dL (0.6-1.3)
[2021-10-31] MEDS ORDERED: POTASSIUM CHLORIDE 20 MEQ POWDER PACKET NG SCH (07:00)
--- NOTE | 2021-10-31 08:00 | NUR ---
COKE HANDLING SUPERVISOR OPENING NOTE PATIENT RECEIVED IN BED AND AWAKE. A/O X1, AND ON BEDREST. REMAINS ON NPO STATUS AND ON G-TUBE CONTINUOUS FEEDING. FEEDING TUBE PATENT AND FEEDING FLOWING WELL WITH JEVITY 1.2. NO S/SX OF RESPIRATORY DISTRESS OBSERVED OR REPORTED. REMAINS ON O2 2L VIA NASAL CANNULA. TOLERATING WELL. IV ACCESS TO L-HAND DISLODGED. NEW ACCESS TO RIGHT LOWER FOREARM PLACED, #22G. INTACT AND PATENT. INTACT AND PATENT. UNABLE TO PROPERLY VERBALIZE NEEDS; CONFUSION. SAFETY MEASURES IN PLACE WITH BED IN LOWEST POSITION AND LOCKED. SIDERAIL UPX2. CALL LIGHT WITHIN REACH. WILL CONTINUE TO MONITOR.
[2021-10-31] MEDS: METOPROLOL TARTRATE 50 MG TABLET GT SCH ×2 (09:00→21:10)
[2021-10-31] MEDS: ASCORBIC ACID 500 MG TABLET GT SCH (09:29)
[2021-10-31] MEDS: ASPIRIN 81 MG TAB.CHEW GT SCH (09:29)
[2021-10-31] MEDS: METHIMAZOLE (5MG) 5 MG TABLET GT SCH (09:30)
[2021-10-31] MEDS: THIAMINE HCL 100 MG TABLET PO SCH (09:30)
[2021-10-31] MEDS: CHOLECALCIFEROL 1,000 UNIT TABLET (VIT D3) GT SCH (09:30)
[2021-10-31] MEDS: MULTIVIT W/MINERALS 1 TAB TABLET PO SCH (09:30)
[2021-10-31] MEDS: APIXABAN 5 MG TABLET GT SCH ×2 (09:35→21:10)
[2021-10-31] MEDS: FUROSEMIDE 40 MG/4 ML VIAL IV SCH ×3 (09:41→15:15)
[2021-10-31] MEDS: DOCUSATE SODIUM LIQ 100 MG/10 ML UDC GT SCH ×2 (09:41→17:25)
[2021-10-31] MEDS: PANTOPRAZOLE 40 MG/PACK PACK GT SCH (09:48)
[2021-10-31] MEDS: DIGOXIN 0.125 MG TABLET GT SCH (13:29)
--- NOTE | 2021-10-31 18:16 | NUR ---
DIESEL ENGINE SPECIALIST CLOSING NOTE PATIENT REMAINED IN BEDREST THROUGHOUT SHIFT. INTERMITTENTLY SLEEPING AND AWAKE. A/O X1 WITH CONFUSION. REMAINS ON NPO STATUS AND ON G-TUBE CONTINUOUS FEEDING. FEEDING TUBE PATENT AND FEEDING FLOWING WELL WITH JEVITY 1.2 @ 50ML/HR. NO S/SX OF RESPIRATORY DISTRESS OBSERVED OR REPORTED. REMAINS ON O2 2L VIA NASAL CANNULA. TOLERATING WELL. IV ACCESS TO RIGHT LOWER FOREARM INTACT AND PATENT. INTACT AND PATENT. REMAINS UNABLE TO PROPERLY VERBALIZE NEEDS; CONFUSION. TOLERATED ALL SCHEDULED MEDICATIONS WELL. SAFETY MEASURES IN PLACE WITH BED IN LOWEST POSITION AND LOCKED. SIDERAIL UPX2. CALL LIGHT WITHIN REACH. WILL CONTINUE TO MONITOR.
--- NOTE | 2021-10-31 19:35 | NUR ---
MS RN NOTES RECEIVED ON BED A/O X1,CONFUSED,WITH LIMITED VERBAL RESPONSE,SALINE LOCK RIGHT FOREARM INTACT AND PATENT.GT FEEDING OF JEVITY 1.2% IN PROGRESS AT 75ML/HR RATE,NOTED 5ML RESIDUAL VOLUME,FLUSHED WITH 150ML WATER FOR PATENCY.WILL REPOSITION PER PROTOCOL,HOB ELEVATED AT ALL TIMES.WILL CONTINUE TO MONITOR STATUS.
[2021-10-31] MEDS: ATORVASTATIN 40 MG TABLET GT SCH (21:09)
[2021-10-31] MEDS: JEVITY 1.2 CAL 1,000 ML BOTTLE GT PRN (21:13)
--- NOTE | 2021-11-01 | NUR ---
MS RN NOTES GT FLUSHING DONE WITH WATER ORDERED,KEPT GT INTACT AND PATENT.
[2021-11-01] MEDS: POLYVINYL ALCOHOL 15 ML BOTTLE EACHEYE SCH ×3 (04:58→21:56)
[2021-11-01] MEDS: DILTIAZEM HCL 30 MG TABLET GT SCH ×3 (05:50→18:08)
--- NOTE | 2021-11-01 06:00 | NUR ---
MS RN NOTES BP -142/45.PULE-75,DUE CARDIZEM 30MG/GT GIVEN ORDERED.
--- NOTE | 2021-11-01 06:46 | NUR ---
MS RN NOTES NO SIGNIFICANT CHANGE IN STATUS,DNR/DNI,GT REMAINS PATENT,THIS TIME NO RESIDUAL VOLUME.REPOSITION PER PROTOCOL,NO DISTRESS.
[2021-11-01 06:59] LABS: BASOPHILS % (AUTO) 0.5 % (0.0-2.0); EOSINOPHILS % (AUTO) 3.9 % (0.0-6.0); HEMATOCRIT 29 % (39-51); HEMOGLOBIN 9.3 g/dL (13.5-17.5); LYMPHOCYTES # (AUTO) 0.8 K/uL (0.8-4.8); LYMPHOCYTES % (AUTO) 11.7 % (20.0-44.0); MEAN CORPUSCULAR HGB CONC 32 g/dl (31.0-36.0); MEAN CORPUSCULAR VOLUME 83 fL (80-96); MONOCYTES # (AUTO) 0.6 K/uL (0.1-1.30); MONOCYTES % (AUTO) 9.7 % (2.0-12.0); NEUTROPHILS # (AUTO) 4.9 K/uL (1.8-8.9); NEUTROPHILS % (AUTO) 74.2 % (43.0-81.0); PLATELET COUNT (AUTO) 231 K/uL (150-450); RED BLOOD CELL COUNT(AUTO) 3.47 MIL/uL (4.5-6.0); WHITE BLOOD COUNT (AUTO) 6.6 K/uL (4.3-11.0)
[2021-11-01 07:17] LABS: ALBUMIN 2.5 g/dL (3.4-5.0); BILIRUBIN,TOTAL 0.4 mg/dL (0.2-1.0); CALCIUM, SERUM 8.6 mg/dL (8.5-10.1); CREATININE 0.9 mg/dL (0.6-1.3); MAGNESIUM 2.4 mg/dL (1.8-2.4); TOTAL PROTEIN, SERUM 8.3 g/dL (6.4-8.2)
--- NOTE | 2021-11-01 07:50 | NUR ---
RN OPENING NOTE PATIENT RECEIVED IN BED AND RESTING. REMAINS A/O X1, AND ON BEDREST. CONTINUES ON ON NPO STATUS AND ON G-TUBE CONTINUOUS FEEDING. FEEDING TUBE PATENT AND FEEDING FLOWING WELL WITH JEVITY 1.2. NO S/SX OF RESPIRATORY DISTRESS OBSERVED OR REPORTED. REMAINS ON O2 2L VIA NASAL CANNULA. TOLERATING WELL. IV ACCESS RIGHT LOWER FOREARM PLACED INTACT AND PATENT. UNABLE TO PROPERLY VERBALIZE NEEDS; CONFUSION. SAFETY MEASURES IN PLACE WITH BED IN LOWEST POSITION AND LOCKED. SIDERAIL UPX2. CALL LIGHT WITHIN REACH. WILL CONTINUE TO MONITOR.
[2021-11-01 08:00] VITALS: BP 120/61
[2021-11-01] MEDS: PANTOPRAZOLE 40 MG/PACK PACK GT SCH (09:31)
[2021-11-01] MEDS: ASCORBIC ACID 500 MG TABLET GT SCH (09:31)
[2021-11-01] MEDS: MULTIVIT W/MINERALS 1 TAB TABLET PO SCH (09:31)
[2021-11-01] MEDS: DOCUSATE SODIUM LIQ 100 MG/10 ML UDC GT SCH ×2 (09:31→18:07)
[2021-11-01] MEDS: ASPIRIN 81 MG TAB.CHEW GT SCH (09:31)
[2021-11-01] MEDS: THIAMINE HCL 100 MG TABLET PO SCH (09:32)
[2021-11-01] MEDS: CHOLECALCIFEROL 1,000 UNIT TABLET (VIT D3) GT SCH (09:32)
[2021-11-01] MEDS: METHIMAZOLE (5MG) 5 MG TABLET GT SCH (09:32)
[2021-11-01] MEDS: METOPROLOL TARTRATE 50 MG TABLET GT SCH ×2 (09:32→21:51)
[2021-11-01] MEDS: APIXABAN 5 MG TABLET GT SCH ×2 (09:33→21:54)
[2021-11-01] MEDS: DIGOXIN 0.125 MG TABLET GT SCH (14:23)
--- NOTE | 2021-11-01 18:38 | NUR ---
RN CLOSING NOTE PATIENT REMAINED IN BEDREST THROUGHOUT SHIFT. INTERMITTENTLY SLEEPING AND AWAKE. A/O X1 WITH CONFUSION. REMAINS ON NPO STATUS AND ON G-TUBE CONTINUOUS FEEDING. FEEDING TUBE PATENT AND FEEDING FLOWING WELL WITH JEVITY 1.2 @ 50ML/HR. NO S/SX OF RESPIRATORY DISTRESS OBSERVED OR REPORTED. ON ROOM AIR. IV ACCESS TO RIGHT LOWER FOREARM INTACT AND PATENT. REMAINS UNABLE TO PROPERLY VERBALIZE NEEDS.TOLERATED ALL SCHEDULED MEDICATIONS WELL. DISCHARGE ORDERS IN PLACE; SCHEDULED FOR PICK-UP TO [facility] TOMORROW 11/02/21. WILL ENDORSE TO ON COMING SHIFT. SAFETY MEASURES IN PLACE WITH BED IN LOWEST POSITION AND LOCKED. SIDERAIL UPX2. CALL LIGHT WITHIN REACH. WILL CONTINUE TO MONITOR.
--- NOTE | 2021-11-01 19:35 | NUR ---
MS RN OPENING NOTE RECEIVED PATIENT IN BED; AWAKE, ALERT AND ORIENTED X1; CONFUSED. ON OXYGEN INHALATION @ 2LPM VIA NASAL CANNULA; TOLERATING WELL. NOT IN ANY FORM OF RESPIRATORY DISTRESS. NO S/SX OF PAIN OR DISCOMFORT NOTED AT THIS TIME. WITH IV ACCESS ON RIGHT FOREARM G#22; PATENT, INTACT AND FLUSHES WELL. ON G-TUBE FEEDING JEVITY 1.2 REGULATED @ 75 ML/HR; PATENT, INTACT AND NO RESIDUAL NOTED. NEEDS ANTICIPATED AND ATTENDED. SAFETY AND ASPIRATION PRECAUTIONS IMPLEMENTED: HEAD OF BED ELEVATED TO 30 DEGREES, CALL LIGHT AND TABLE WITHIN REACH, SIDE RAILS UP X2, BED IN LOWEST LOCKED POSITION. WILL CONTINUE TO MONITOR
[2021-11-01 20:07] VITALS: BP 149/61
[2021-11-01 20:10] VITALS: BP 149/61
[2021-11-01] MEDS: ATORVASTATIN 40 MG TABLET GT SCH (21:51)
[2021-11-02 00:03] VITALS: BP 119/69
[2021-11-02 00:15] VITALS: BP 119/69
[2021-11-02] MEDS: DILTIAZEM HCL 30 MG TABLET GT SCH ×2 (00:22→05:46)
[2021-11-02 04:15] VITALS: BP 114/68
[2021-11-02] MEDS: POLYVINYL ALCOHOL 15 ML BOTTLE EACHEYE SCH (05:29)
--- NOTE | 2021-11-02 07:00 | NUR ---
MS RN CLOSING NOTE PATIENT IS RESTING IN BED; ASLEEP, EASILY AROUSABLE UPON VERBAL STIMULI; STABLE. NO SIGNIFICANT CHANGE IN STATUS. ALL DUE MEDS GIVEN ORDERED. SAFETY MEASURES IN PLACE. ENDORSED TO MORNING SHIFT FOR NINO.
--- NOTE | 2021-11-02 07:30 | NUR ---
MS RN OPENING NOTES RECEIVED PATIENT ON BED; AWAKE, ALERT AND ORIENTED X1; CONFUSED. ON O2 AT 2LPM VIA NASAL CANNULA TOLERATING WELL. NO SOB NOTED. NOT IN DISTRESS. NO S/SX OF PAIN OR DISCOMFORT NOTED AT THIS TIME. WITH IV ACCESS AT THE RIGHT FOREARM G22 PATENT, INTACT AND FLUSHES WELL. ON G-TUBE FEEDING JEVITY 1.2 AT 75 ML/HR; PATENT, INTACT AND NO RESIDUAL NOTED. SAFETY AND ASPIRATION PRECAUTIONS IMPLEMENTED: HEAD OF BED ELEVATED TO 30 DEGREES, CALL LIGHT AND TABLE WITHIN REACH, SIDE RAILS UP X2, BED IN LOWEST LOCKED POSITION. WILL CONTINUE TO MONITOR
[2021-11-02] MEDS: ASCORBIC ACID 500 MG TABLET GT SCH (08:39)
[2021-11-02] MEDS: MULTIVIT W/MINERALS 1 TAB TABLET PO SCH (08:39)
[2021-11-02] MEDS: CHOLECALCIFEROL 1,000 UNIT TABLET (VIT D3) GT SCH (08:39)
[2021-11-02] MEDS: THIAMINE HCL 100 MG TABLET PO SCH (08:39)
[2021-11-02] MEDS: METHIMAZOLE (5MG) 5 MG TABLET GT SCH (08:39)
[2021-11-02] MEDS: DOCUSATE SODIUM LIQ 100 MG/10 ML UDC GT SCH (08:39)
[2021-11-02 08:40] VITALS: BP 117/62
[2021-11-02] MEDS: METOPROLOL TARTRATE 50 MG TABLET GT SCH (08:40)
[2021-11-02] MEDS: PANTOPRAZOLE 40 MG/PACK PACK GT SCH (08:40)
[2021-11-02] MEDS: ASPIRIN 81 MG TAB.CHEW GT SCH (08:40)
[2021-11-02] MEDS: APIXABAN 5 MG TABLET GT SCH (08:41)
[2021-11-02] MEDS ORDERED: FUROSEMIDE 40 MG TABLET PO SCH (09:30)
--- NOTE | 2021-11-02 10:40 | NUR ---
SMOG TECHNICIAN NOTES PATIENT WAS SEEN BY DR. JOYCE AND ORDERED PATIENT FOR DISCHARGE. PATIENT IS FOR DISCHARGE TO SNF. PATIENT IS A/O X1, CONFUSED. GIVEN REPORT TO LAYTON MATHEW FROM [facility]. PATIENT UNABLE TO SIGN. REMOVED IV LINE AND WRIST BAND. PATIENT WAS PICKED UP BY AMBULANCE PERSONNEL FOR DC IN STABLE CONDITION. MD AND CHARGE NURSE ARE AWARE OF THE DISCHARGE.
== END 2021-11-02 10:40 | DRG 291 ==
LOC: ER 18:52 → MED 22:07 → TELE 10-29 → MED 10-31 09:31
PROVIDERS: ADMIT Nurse Practitioner Family; ATTEND Internal Medicine
DX: I11.0 Hypertensive heart disease with heart failure (principal); I50.23 Acute on chronic systolic (congestive) heart failure; J96.21 Acute and chronic respiratory failure with hypoxia; E87.1 Hypo-osmolality and hyponatremia; E44.0 Moderate protein-calorie malnutrition; D68.59 Other primary thrombophilia; J84.9 Interstitial pulmonary disease, unspecified; Z20.822 Contact with and (suspected) exposure to COVID-19; Z66 Do not resuscitate; F03.90 Unspecified dementia, unspecified severity, without behavioral disturbance, psychotic disturbance, mood disturbance, and anxiety; E78.5 Hyperlipidemia, unspecified; E03.9 Hypothyroidism, unspecified; F32.A Depression, unspecified; Z95.1 Presence of aortocoronary bypass graft; I25.10 Atherosclerotic heart disease of native coronary artery without angina pectoris; I48.91 Unspecified atrial fibrillation; H52.4 Presbyopia; H26.9 Unspecified cataract; H04.129 Dry eye syndrome of unspecified lacrimal gland; Z91.041 Radiographic dye allergy status; Z79.82 Long term (current) use of aspirin; Z79.899 Other long term (current) drug therapy; Z79.01 Long term (current) use of anticoagulants; D63.8 Anemia in other chronic diseases classified elsewhere; R73.9 Hyperglycemia, unspecified; E88.09 Other disorders of plasma-protein metabolism, not elsewhere classified; I73.9 Peripheral vascular disease, unspecified; F09 Unspecified mental disorder due to known physiological condition; R94.6 Abnormal results of thyroid function studies; E05.90 Thyrotoxicosis, unspecified without thyrotoxic crisis or storm; I25.2 Old myocardial infarction; Z86.73 Personal history of transient ischemic attack (TIA), and cerebral infarction without residual deficits
CPT/HCPCS: 36415; 71045-TC; 80048-TC; 80053-TC; 80061-TC; 80076-TC; 82728-TC; 83540-TC; 83605-TC; 83735-TC; 83880; 84100-TC; 84439-TC; 84443-TC; 84484-TC; 85025-TC; 85730-TC; 87040-TC; 87081-TC; 92526; 92611-TC; 94799-TC; C9113; C9803; G0378; J1940

== ENCOUNTER 2021-12-19 22:38 | Inpatient (IN) | payer MEDICARE, OTHER ==
[~2021-12-19] VITALS: Ht 172.7 cm; Wt 83.5 kg
[~2021-12-19 22:38] MED LIST changes: +ACET-2030 GT; -ACET-2030 PO; +AMIN30LI2 GT; -AMIN30LI2 PO; +APIX5TAB GT; -APIX5TAB PO; +ASCO-352 GT; -ASCO-352 PO; +ATOR40TA GT; -ATOR40TA PO; -CEFE2PIG2 IV; +CHOL100040 GT; -CHOL100040 PO; +DOCU100T2 GT; -DOCU100T2 PO; +MAGN400O6 GT; -MAGN400O6 PO; +MULT-447 GT; -MULT-447 PO; +OMEP20TA5 GT; -OMEP20TA5 PO; +THIA100T88 GT; -THIA100T88 PO; +TYL2T GT; -TYL2T PO
--- NOTE | 2021-12-19 22:43 | NUR ---
[id number] FROM SNF FOUND SATTING IN MID 80'S RA. PUT ON NRB 15L SATTING 98%. PATIENT IN GOWN AND ON MONITOR AND POX, SEEN BY MD GALVAN AT TRIAGE AND IN BED 06
--- NOTE | 2021-12-19 22:51 | NUR ---
BLOOD AND CULTURES COLLECTED AND SENT TO LAB
--- NOTE | 2021-12-19 22:52 | NUR ---
Sesar narayanan in [facility] - 12/19/21 at 2318 by NICK URINE COLLECTED AND SENT TO LAB
--- NOTE | 2021-12-19 22:52 | NUR ---
COVID SWAB DONE AND SENT TO LAB
[2021-12-19] MEDS ORDERED: VANCOMYCIN 1 GM VIAL ONE (22:58)
[2021-12-19] MEDS ORDERED: CEFEPIME 1 GM VIAL ONE (22:58)
[2021-12-19] MEDS ORDERED: IV NS 0.9% 1,000 ML BAG IV ONE (23:00)
[2021-12-19] MEDS ORDERED: VANCOMYCIN 1 GM in IV D5W 250 ML IV ONE (23:00)
[2021-12-19] MEDS ORDERED: CEFEPIME 1 GM in IV D5W 50 ML IV ONE (23:00)
--- NOTE | 2021-12-19 23:19 | NUR ---
HAND RUG CLEANER AT PT'S BEDSIDE
--- NOTE | 2021-12-19 23:33 | NUR ---
UNABLE TO OBTAIN URINE, MET WITH OBSTRUCTION WHEN ATTEMPTING TO INSERT TORRES
[2021-12-19 23:35] LABS: BASOPHILS % (AUTO) 0.2 % (0.0-2.0); EOSINOPHILS % (AUTO) 0.6 % (0.0-6.0); HEMATOCRIT 26 % (39-51); HEMOGLOBIN 8.3 g/dL (13.5-17.5); LYMPHOCYTES # (AUTO) 0.3 K/uL (0.8-4.8); LYMPHOCYTES % (AUTO) 2.4 % (20.0-44.0); MEAN CORPUSCULAR HGB CONC 32 g/dl (31.0-36.0); MEAN CORPUSCULAR VOLUME 82 fL (80-96); MONOCYTES # (AUTO) 0.5 K/uL (0.1-1.30); MONOCYTES % (AUTO) 4.2 % (2.0-12.0); NEUTROPHILS # (AUTO) 11.8 K/uL (1.8-8.9); NEUTROPHILS % (AUTO) 92.6 % (43.0-81.0); PLATELET COUNT (AUTO) 219 K/uL (150-450); WHITE BLOOD COUNT (AUTO) 12.8 K/uL (4.3-11.0)
--- NOTE | 2021-12-19 23:42 | NUR ---
MELLISSA ZURITA DNP AT PT'S BEDSIDE FOR EVAL Addendum: 12/19/21 at 2344 by NORBERTO MELLISSA ZURITA REGULATORY PRODUCT MANAGER AT PT'S BEDSIDE FOR EVAL
[2021-12-19 23:47] LABS: CALCIUM, SERUM 8.6 mg/dL (8.5-10.1); CARBON DIOXIDE 34 mmol/L (21-32); CHLORIDE 94 mmol/L (98-107); GLUCOSE 163 mg/dL (74-106); POTASSIUM 3.4 mmol/L (3.5-5.1); SODIUM SERUM 134 mmol/L (136-145); UREA NITROGEN, BLOOD 45 mg/dL (7-18)
[2021-12-19 23:52] LABS: ALANINE AMINOTRANSFERASE 21 U/L (12-78); ALBUMIN 2.6 g/dL (3.4-5.0); ALKALINE PHOSPHATASE 104 U/L (46-116); ASPARTATE AMINOTRANSFERASE 20 U/L (15-37); BILIRUBIN,DIRECT 0.2 mg/dL (0.0-0.2); BILIRUBIN,TOTAL 0.7 mg/dL (0.2-1.0); TOTAL PROTEIN, SERUM 8.1 g/dL (6.4-8.2)
[2021-12-20] MEDS ORDERED: ONDANSETRON HCL/PF 4 MG/2 ML VIAL IVP PRN
[2021-12-20] MEDS ORDERED: ACETAMINOPHEN 325 MG TABLET PO PRN
[2021-12-20] MEDS ORDERED: APIXABAN 5 MG TABLET PO SCH ×2 (00:30→04:40)
[2021-12-20] MEDS ORDERED: ATORVASTATIN 40 MG TABLET PO SCH ×2 (00:30→04:40)
--- NOTE | 2021-12-20 00:35 | NUR ---
US TECH AT PT'S BEDSIDE
--- NOTE | 2021-12-20 01:23 | NUR ---
PT TAKEN TO CT VIA SUMAN
--- NOTE | 2021-12-20 02:12 | NUR ---
FOUNDATION ENGINEER AT PT'S BEDSIDE
--- NOTE | 2021-12-20 03:00 | NUR ---
REPORT GIVEN TO DAVID TRAYLOR FOR NINO
[2021-12-20] MEDS ORDERED: CEFTRIAXONE 1 G in IV D5W 50 ML IV SCH (03:14)
--- NOTE | 2021-12-20 03:17 | NUR ---
TRANSFERRED TO 113 UNDER ACLS
--- NOTE | 2021-12-20 03:20 | NUR ---
RN NOTES ADMITTED A MALE PATIENT FROM ER VIA GURNEY. ON NON REBREATHER AT 15 LPM SATING 96%. VITAL SIGNS TAKEN AND RECORDED AFEBRILE. WITH IV ACCESS ON L HAND #20 PATENT FLUSHES WELL. SAFELY TRANSFER PATIENT TO BED. COMPLETE BODY ASSESSMENT DONE, PSKIN ASSESSMENT DONE AND PICTURE TAKEN. WITH GT INTACT. ALL SAFETY MEASURES IN PLACE. HOB ELEVATED. CALL LIGHT WITHIN REACH. HOOKED TO TELE MONITOR. WILL CLOSELY MONITOR THE PATIENT
[2021-12-20 04:00] VITALS: BP 135/82
[2021-12-20] MEDS: POLYVINYL ALCOHOL 15 ML BOTTLE OP SCH ×4 (04:00→21:07)
--- NOTE | 2021-12-20 04:30 | NUR ---
RN NOTES CALLED [facility] REGARDING POTASSIUM CHLORIDE ORDERED @0130 TO BE GIVEN @ ER BUT PER CLIENT SERVICES DIRECTOR THEY CANNOT GIVE THE MEDICATION BECAUSE ITS NOT VERIFIED. GAVE POTASSIUM @2527 PER PHARMACY.
[2021-12-20] MEDS ORDERED: CEFTRIAXONE 1 G VIAL ONE (04:40)
[2021-12-20] MEDS: POTASSIUM CL. PREMIX PERIPHER. 50 ML IV SCH ×2 (04:49→05:58)
[2021-12-20] MEDS ORDERED: POTASSIUM CL. PREMIX PERIPHER. 50 ML IV SCH (05:00)
[2021-12-20] MEDS: AZITHROMYCIN 500 MG in IV D5W 250 ML IV SCH (05:00)
[2021-12-20] MEDS ORDERED: AZITHROMYCIN 500 MG VIAL ONE (05:07)
[2021-12-20] MEDS ORDERED: DILTIAZEM HCL 30 MG TABLET PO SCH (06:00)
[2021-12-20] MEDS ORDERED: ACETAMINOPHEN LIQUID 325 MG/10.1 ML UDC GT PRN (06:30)
--- NOTE | 2021-12-20 06:57 | NUR ---
RN NOTES PATIENT REMAINS IN STABLE CONDITION. STILL ON NON REBREATHER MASK @ 15LPM SATING 98% NO SOB NO DISTRESS. WITH IV ACCESS @ L [id number], R WRIST #22 PATENT FLUSHES WELL. GT PATENT FOR MEDICATION ADMIN. ALL SAFETY MEASURES IN PLACE HOB ELEVATED. CALL LIGHT WITHIN REACH. WILL CLOSELY MONITOR THE PATIENT
[2021-12-20 07:13] LABS: CALCIUM, SERUM 8.7 mg/dL (8.5-10.1); CREATININE 0.9 mg/dL (0.6-1.3); MAGNESIUM 2.2 mg/dL (1.8-2.4); PHOSPHORUS 4.2 mg/dL (2.5-4.9); POTASSIUM 4.2 mmol/L (3.5-5.1)
[2021-12-20 07:25] LABS: BASOPHILS % (AUTO) 0.3 % (0.0-2.0); EOSINOPHILS % (AUTO) 1.4 % (0.0-6.0); HEMATOCRIT 26 % (39-51); HEMOGLOBIN 8.2 g/dL (13.5-17.5); LYMPHOCYTES # (AUTO) 0.7 K/uL (0.8-4.8); LYMPHOCYTES % (AUTO) 8.3 % (20.0-44.0); MEAN CORPUSCULAR HGB CONC 31 g/dl (31.0-36.0); MEAN CORPUSCULAR VOLUME 84 fL (80-96); MONOCYTES # (AUTO) 0.6 K/uL (0.1-1.30); MONOCYTES % (AUTO) 7.3 % (2.0-12.0); NEUTROPHILS # (AUTO) 6.9 K/uL (1.8-8.9); NEUTROPHILS % (AUTO) 82.7 % (43.0-81.0); PLATELET COUNT (AUTO) 211 K/uL (150-450); RED BLOOD CELL COUNT(AUTO) 3.15 MIL/uL (4.5-6.0); WHITE BLOOD COUNT (AUTO) 8.3 K/uL (4.3-11.0)
--- NOTE | 2021-12-20 07:30 | NUR ---
RN OPENING NOTES REPORT RECEIVED FROM NIGHT RN. PATIENT A&OX0-1 AWAKE NON VERBAL. PATIENT SATTING AT 100% ON 15L NON REBREATHER MASK. SR. DIET SHOULD BE JEVITY 1.5 @60ML/HR WE DO NOT HAVE THAT SO DOCTOR WAS NOTIFIED TO GIVE SUPPLEMENT. IV L HAND #20G R WRIST #22 PATENT, INTACT, AND FLUSHED. DISTRESS. ALL SAFETY FALL PRECAUTIONS IN PLACE BED LOCK ON, BED IN LOWEST POSITION, BED ALARM ON, SIDE RAILS UP, CALL LIGHT WITHIN REACH, WILL CONTINUE TO MONITOR.
[2021-12-20 08:00] VITALS: BP 139/104
[2021-12-20] MEDS ORDERED: METO25TA20 GT (08:32)
[2021-12-20] MEDS ORDERED: METO2.5T2 GT (08:32)
[2021-12-20] MEDS ORDERED: FURO-145 GT (08:32)
[2021-12-20] MEDS ORDERED: METH10TA7 GT (08:32)
[2021-12-20] MEDS ORDERED: LACT-96 GT (08:32)
[2021-12-20] MEDS ORDERED: DIGO250T GT (08:32)
[2021-12-20] MEDS ORDERED: CRAN3875 GT (08:32)
[2021-12-20] MEDS ORDERED: DILT30TA14 GT (08:33)
[2021-12-20] MEDS: FUROSEMIDE 40 MG/4 ML VIAL IV SCH ×3 (08:56→16:37)
[2021-12-20] MEDS: PANTOPRAZOLE 40 MG/PACK PACK GT SCH (08:57)
[2021-12-20] MEDS: ASPIRIN 81 MG TAB.CHEW GT SCH (08:57)
[2021-12-20] MEDS: MULTIVITAMINS,THERAGRAN 1 UDTAB TABLET GT SCH (08:58)
[2021-12-20] MEDS: THIAMINE HCL 100 MG TABLET GT SCH (08:58)
[2021-12-20] MEDS: APIXABAN 5 MG TABLET GT SCH ×2 (09:00→21:09)
[2021-12-20] MEDS: ASCORBIC ACID 500 MG TABLET PO SCH (09:00)
[2021-12-20] MEDS ORDERED: METHIMAZOLE (5MG) 5 MG TABLET PO SCH (09:00)
[2021-12-20] MEDS: CHOLECALCIFEROL 1,000 UNIT TABLET (VIT D3) GT SCH (09:00)
[2021-12-20] MEDS: METOPROLOL TARTRATE 50 MG TABLET GT SCH ×2 (09:01→16:38)
[2021-12-20] MEDS: DOCUSATE SODIUM LIQ 100 MG/10 ML UDC GT SCH ×2 (09:01→16:37)
[2021-12-20] MEDS: DEXAMETHASONE SOD PHOSPHATE 10 MG/ML VIAL IV SCH (10:27)
[2021-12-20 12:00] VITALS: BP 119/59
[2021-12-20] MEDS: DILTIAZEM HCL 30 MG TABLET GT SCH ×2 (12:19→17:45)
[2021-12-20] MEDS: DIGOXIN ELIX UDC 0.25 MG/5 ML UDC GT SCH (12:20)
[2021-12-20 16:00] VITALS: BP 143/69
--- NOTE | 2021-12-20 18:39 | NUR ---
RN/NOTE PATIENT IS STABLE NO SIGNS OF DISTRESS. ALL CARE AND QUESTIONS ENDORSED TO SHEAR ASSEMBLER RN.
--- NOTE | 2021-12-20 19:45 | NUR ---
TD RN OPENING NOTES RECEIVED PT IN BED, BOTH EYES CLOSED. A/O X1 WITH UNCLEAR SPEECH. ON 15L NON REBREATHER MASK AND PT TOLERATED WELL. O2 SAT 96%. IV ACCESS ON LT HAND#20G AND RT WRIST#22G INTACT AND PATENT. NO S/S OF INFILTRATIONS. NO FACIAL GRIMACING NOTED. NO ACUTE DISTRESS. GTUBE FEEDING WELL TOLERATED WELL. ON JEVITY 1.2 @30ML/HR, INCREASED 20CC/HR [id number] AND GOAL IS 70CC/HR. ALL SAFETY MEASURES IN PLACE. BED IN LOWEST POSITION AND LOCKED. BED ALARM ON, SIDE RAILS UPX3, PLACE CALL LIGHT WITHIN REACH, WILL CONTINUE TO MONITOR.
[2021-12-20 20:00] VITALS: BP 119/43
[2021-12-20] MEDS: ATORVASTATIN 40 MG TABLET GT SCH (21:07)
[2021-12-21] VITALS: BP 128/64
[2021-12-21] MEDS: DILTIAZEM HCL 30 MG TABLET GT SCH ×4 (00:20→17:51)
[2021-12-21] MEDS ORDERED: CEFTRIAXONE 1 G in IV D5W 50 ML IV SCH ×2 (02:00→05:00)
[2021-12-21] MEDS: JEVITY 1.2 CAL 1,000 ML BOTTLE GT PRN ×2 (02:16→14:51)
[2021-12-21 04:00] VITALS: BP 131/47
[2021-12-21] MEDS: POLYVINYL ALCOHOL 15 ML BOTTLE OP SCH ×3 (04:56→21:15)
--- NOTE | 2021-12-21 06:36 | NUR ---
TD RN CLOSING NOTES PT IN BED, BOTH EYES CLOSED. A/O X1 WITH UNCLEAR SPEECH. ON 15L NON REBREATHER MASK AND PT TOLERATED WELL. O2 SAT 99%. IV ACCESS ON LT HAND#20G AND RT WRIST#22G INTACT AND PATENT. NO S/S OF INFILTRATIONS. NO FACIAL GRIMACING NOTED. NO ACUTE DISTRESS. GTUBE FEEDING WELL TOLERATED WELL. ON JEVITY 1.2 @70CC/HR. ALL DUE MEDS GIVEN ORDERED. ALL SAFETY MEASURES IN PLACE. BED IN LOWEST POSITION AND LOCKED. BED ALARM ON, SIDE RAILS UPX3, PLACE CALL LIGHT WITHIN REACH, WILL ENDORSE TO MORNING SHIFT NURSE.
[2021-12-21 07:21] LABS: BASOPHILS % (AUTO) 0.2 % (0.0-2.0); EOSINOPHILS % (AUTO) 0.3 % (0.0-6.0); HEMATOCRIT 24 % (39-51); HEMOGLOBIN 7.5 g/dL (13.5-17.5); LYMPHOCYTES # (AUTO) 0.6 K/uL (0.8-4.8); LYMPHOCYTES % (AUTO) 9.1 % (20.0-44.0); MEAN CORPUSCULAR HGB CONC 32 g/dl (31.0-36.0); MEAN CORPUSCULAR VOLUME 83 fL (80-96); MONOCYTES # (AUTO) 0.7 K/uL (0.1-1.30); MONOCYTES % (AUTO) 9.7 % (2.0-12.0); NEUTROPHILS # (AUTO) 5.7 K/uL (1.8-8.9); NEUTROPHILS % (AUTO) 80.7 % (43.0-81.0); PLATELET COUNT (AUTO) 195 K/uL (150-450); RED BLOOD CELL COUNT(AUTO) 2.88 MIL/uL (4.5-6.0)
--- NOTE | 2021-12-21 07:30 | NUR ---
RN OPENING NOTES REPORT RECEIVED FROM NIGHT RN. PATIENT A&OX0-1-2 AWAKE MORE RESPONSIVE THAN YESTERDAY. PATIENT SATTING AT 100% ON 15L NON REBREATHER MASK. SR. DIET JEVITY 1.2 @55ML/HR, IV L HAND #20G R WRIST #22 PATENT, INTACT, AND FLUSHED.SKIN IS INTACT. ALL SAFETY FALL PRECAUTIONS IN PLACE BED LOCK ON, BED IN LOWEST POSITION, BED ALARM ON, SIDE RAILS UP, CALL LIGHT WITHIN REACH, WILL CONTINUE TO MONITOR.
[2021-12-21 08:00] VITALS: BP 141/69
[2021-12-21 08:07] LABS: ALBUMIN 2.6 g/dL (3.4-5.0); BILIRUBIN,TOTAL 0.4 mg/dL (0.2-1.0); CALCIUM, SERUM 8.4 mg/dL (8.5-10.1); MAGNESIUM 2.3 mg/dL (1.8-2.4); PHOSPHORUS 4.1 mg/dL (2.5-4.9); POTASSIUM 3.7 mmol/L (3.5-5.1); TOTAL PROTEIN, SERUM 7.6 g/dL (6.4-8.2)
[2021-12-21] MEDS: METOPROLOL TARTRATE 50 MG TABLET GT SCH ×2 (09:00→17:52)
[2021-12-21] MEDS: DOCUSATE SODIUM LIQ 100 MG/10 ML UDC GT SCH ×2 (09:11→17:51)
[2021-12-21] MEDS: ASPIRIN 81 MG TAB.CHEW GT SCH (09:12)
[2021-12-21] MEDS: MULTIVITAMINS,THERAGRAN 1 UDTAB TABLET GT SCH (09:12)
[2021-12-21] MEDS: PANTOPRAZOLE 40 MG/PACK PACK GT SCH (09:12)
[2021-12-21] MEDS: CHOLECALCIFEROL 1,000 UNIT TABLET (VIT D3) GT SCH (09:12)
[2021-12-21] MEDS: DEXAMETHASONE SOD PHOSPHATE 10 MG/ML VIAL IV SCH (09:12)
[2021-12-21] MEDS: THIAMINE HCL 100 MG TABLET GT SCH (09:12)
[2021-12-21] MEDS: ASCORBIC ACID 500 MG TABLET PO SCH (09:12)
[2021-12-21] MEDS: APIXABAN 5 MG TABLET GT SCH ×2 (09:22→21:14)
[2021-12-21] MEDS: AZITHROMYCIN 500 MG in IV D5W 250 ML IV SCH (09:24)
[2021-12-21 12:00] VITALS: BP 120/73
[2021-12-21] MEDS: CEFEPIME 2 GM in IV D5W 100 ML IV SCH ×2 (13:01→20:48)
[2021-12-21] MEDS: DIGOXIN ELIX UDC 0.25 MG/5 ML UDC GT SCH (13:13)
[2021-12-21 16:00] VITALS: BP 143/68
[2021-12-21 18:24] LABS: BILIRUBIN,URINE NEGATIVE (NEGATIVE); COLOR,URINE YELLOW (YELLOW); LEUKOCYTE ESTERASE ,URINE SMALL (NEGATIVE); NITRITE, URINE NEGATIVE (NEGATIVE); PH,URINE 5.5 (5.0-8.0); PROTEIN,URINE NEGATIVE (NEGATIVE); UGLUCOSE NEGATIVE (NEGATIVE); UROBILINOGEN,URINE 0.2 EU/dL (0.2)
[2021-12-21 18:39] LABS: BACTERIA,URINE 1+ /HPF (None Seen)
--- NOTE | 2021-12-21 19:04 | NUR ---
RN/ CLOSING NOTE REPORT GIVEN TO NIGHT RN. PATIENT STABLE NO SIGNS OF DISTRESS, ALL SAFETY FALL PRECAUTIONS IN PLACE BED LOCK ON, BED IN LOWEST POSITION, SIDE RAILS UP, BED ALARM ON, CALL LIGHT WITHIN REACH. ALL QUESTIONS ANSWERED.
--- NOTE | 2021-12-21 19:44 | NUR ---
TAMMIE RN OPENING NOTES RECEIVED PT IN BED, BOTH EYES CLOSED. A/O X1 WITH VERBALLY RESPONSIVE. ON 15L NON REBREATHER MASK AND PT TOLERATED WELL. IV ACCESS ON LT HAND#20G AND RT WRIST#22G INTACT AND PATENT. NO S/S OF INFILTRATIONS. NO FACIAL GRIMACING NOTED. NO ACUTE DISTRESS. GTUBE FEEDING TOLERATED WELL. ON JEVITY 1.2 @ 70ML/HR. ALL SAFETY MEASURES IN PLACE. BED IN LOWEST POSITION AND LOCKED. BED ALARM ON, SIDE RAILS UPX3, PLACE CALL LIGHT WITHIN REACH, WILL CONTINUE TO MONITOR.
[2021-12-21 20:00] VITALS: BP 153/73
[2021-12-21] MEDS ORDERED: DOCUSATE SODIUM 100 MG CAPSULE PO SCH (21:00)
[2021-12-21] MEDS ORDERED: POLYETHYLENE GLYCOL 3350 17 GM POWD.PACK PO PRN (21:00)
[2021-12-21] MEDS ORDERED: CEFEPIME 1 GM in IV D5W 50 ML IV SCH (21:00)
[2021-12-21] MEDS: ATORVASTATIN 40 MG TABLET GT SCH (21:14)
--- NOTE | 2021-12-21 22:05 | NUR ---
RN NOTES: MIRALAX GIVEN FOR UNABLE TO HAVE BM. NOTED WITH ABDOMINAL DISTENTION. WILL CONTINUE TO MONITOR
--- NOTE | 2021-12-21 23:00 | NUR ---
RN NOTES: TAP WATER ENEMA GIVEN PER ORDER. PT TOLERATED WELL. WILL CONTINUE TO MONITOR
[2021-12-22] VITALS: BP 100/50
[2021-12-22 04:00] VITALS: BP 138/66
[2021-12-22] MEDS: POLYVINYL ALCOHOL 15 ML BOTTLE OP SCH ×3 (05:24→21:40)
[2021-12-22] MEDS: DILTIAZEM HCL 30 MG TABLET GT SCH ×4 (05:25→17:04)
--- NOTE | 2021-12-22 06:39 | NUR ---
TD RN CLOSING NOTES PT IN BED, BOTH EYES CLOSED. A/O X1 WITH UNCLEAR SPEECH. ON 15L NON REBREATHER MASK AND PT TOLERATED WELL. O2 SAT 97%. IV ACCESS ON LT HAND#20G AND RT WRIST#22G INTACT AND PATENT. NO S/S OF INFILTRATIONS. NO FACIAL GRIMACING NOTED. NO ACUTE DISTRESS. GTUBE FEEDING TOLERATED WELL. ON JEVITY 1.2 @70CC/HR. NO RESIDUAL NOTED. ALL DUE MEDS GIVEN ORDERED. ALL SAFETY MEASURES IN PLACE. BED IN LOWEST POSITION AND LOCKED. BED ALARM ON, SIDE RAILS UPX3, PLACE CALL LIGHT WITHIN REACH, WILL ENDORSE TO MORNING SHIFT NURSE.
--- NOTE | 2021-12-22 07:27 | NUR ---
RN OPENING NOTE PT OBSERVED IN BED RESTING WITH HOB >30. PT IS ON NON-REBREATHER 15L TOLERATING WELL WITH NO SIGNS OF DISTRESS OR LABORED BREATHING O2 SAT 97%. PT IS A/OX1-2 ON TELE MONITOR SR AT THIS TIME. GTUBE IS IN PLACE WITH POSITIVE PLACEMENT INFUSING WITH JEVITY 1.2 @70ML/HR. IV ACCESS L KHAN 20G AND R WRIST 22G NO FLUIDS INFUSING AT THIS TIME. BED IS LOCKED IN LOWEST POSITION X2 BED RAILS UP AND ALL HOSPITAL SAFETY MEASURES ARE IN PLACE. WILL CONTINUE TO MONITOR THIS SHIFT.
--- NOTE | 2021-12-22 07:50 | NUR ---
REPORT GIVEN TO LAYTON BERMAN.
[2021-12-22 08:00] VITALS: BP 129/61
[2021-12-22] MEDS ORDERED: POTASSIUM CHLORIDE 20 MEQ POWDER PACKET NG SCH (09:00)
[2021-12-22] MEDS: CHOLECALCIFEROL 1,000 UNIT TABLET (VIT D3) GT SCH (09:11)
[2021-12-22] MEDS: THIAMINE HCL 100 MG TABLET GT SCH (09:11)
[2021-12-22] MEDS: DOCUSATE SODIUM LIQ 100 MG/10 ML UDC GT SCH ×2 (09:11→16:38)
[2021-12-22] MEDS: ASCORBIC ACID 500 MG TABLET PO SCH (09:11)
[2021-12-22] MEDS: MULTIVITAMINS,THERAGRAN 1 UDTAB TABLET GT SCH (09:12)
[2021-12-22] MEDS: DEXAMETHASONE SOD PHOSPHATE 10 MG/ML VIAL IV SCH (09:12)
[2021-12-22] MEDS: CEFEPIME 2 GM in IV D5W 100 ML IV SCH ×2 (09:12→21:39)
[2021-12-22] MEDS: ASPIRIN 81 MG TAB.CHEW GT SCH (09:12)
[2021-12-22] MEDS: PANTOPRAZOLE 40 MG/PACK PACK GT SCH (09:12)
[2021-12-22] MEDS: METOPROLOL TARTRATE 50 MG TABLET GT SCH ×2 (09:13→16:38)
[2021-12-22] MEDS: APIXABAN 5 MG TABLET GT SCH ×2 (09:14→21:38)
[2021-12-22] MEDS: FUROSEMIDE 100 MG/10 ML VIAL IV SCH ×3 (09:20→16:38)
[2021-12-22] MEDS: JEVITY 1.2 CAL 1,000 ML BOTTLE GT PRN (09:31)
[2021-12-22 09:51] LABS: BASOPHILS % (AUTO) 0.1 % (0.0-2.0); HEMATOCRIT 23 % (39-51); HEMOGLOBIN 7.5 g/dL (13.5-17.5); LYMPHOCYTES # (AUTO) 0.7 K/uL (0.8-4.8); LYMPHOCYTES % (AUTO) 7.7 % (20.0-44.0); MEAN CORPUSCULAR HGB CONC 32 g/dl (31.0-36.0); MEAN CORPUSCULAR VOLUME 83 fL (80-96); MONOCYTES % (AUTO) 10.6 % (2.0-12.0); NEUTROPHILS # (AUTO) 7.3 K/uL (1.8-8.9); NEUTROPHILS % (AUTO) 81.6 % (43.0-81.0); PLATELET COUNT (AUTO) 203 K/uL (150-450)
[2021-12-22 09:59] LABS: ALBUMIN 2.8 g/dL (3.4-5.0); BILIRUBIN,TOTAL 0.4 mg/dL (0.2-1.0); CALCIUM, SERUM 8.4 mg/dL (8.5-10.1); MAGNESIUM 2.6 mg/dL (1.8-2.4); PHOSPHORUS 3.5 mg/dL (2.5-4.9); POTASSIUM 3.9 mmol/L (3.5-5.1); TOTAL PROTEIN, SERUM 8.1 g/dL (6.4-8.2)
--- NOTE | 2021-12-22 10:00 | NUR ---
MOTORCYCLE MECHANIC NOTE PER DR JOYCE CAN TITRATE O2,RT AT BEDSIDE PLACED ON 6L NC ,SATURATION 95% AT THIS TIME , WILL MONITOR
--- NOTE | 2021-12-22 11:24 | NUR ---
DEMAND PLANNER NOTE DR JOYCE AT BEDSIDE NOTIFIED THAT ABDOMEN IS DISTRESS WITH ORDER DULCOLAX SUPPOSITORY ORDER CARRIED OUT ,BLADER SCANNER DONE NO URINE RETENTION NOTED ,WILL F\U
[2021-12-22] MEDS ORDERED: BISACODYL SUPP (10 MG) 10 MG/SUPP.RECT SUPP.RECT RC PRN (11:30)
[2021-12-22 12:00] VITALS: BP 156/48
[2021-12-22] MEDS: DIGOXIN ELIX UDC 0.25 MG/5 ML UDC GT SCH (13:30)
--- NOTE | 2021-12-22 14:53 | NUR ---
television schedule coordinator note able t make bm, keep clean dry ,all needs attended
[2021-12-22 16:00] VITALS: BP 155/48
--- NOTE | 2021-12-22 18:57 | NUR ---
TAMMIE RN NOTE PATIENT IN BED ,ALL NEEDS ATTENDED ,ON GTUBE FEEDING ORDERED WITH CONDOM CATH TO GRAVITY WITH YELLOW COLOR URINE NOTED ,KEEP HOB ELEVATED , BED IN LOWEST AND LOCKED POSITION, ON 6L NC OF O2 NO SOB NOTED AT THIS TIME LT HAND HL INTACT AND FLUSHED WELL. WILL CONT TO MONITOR
--- NOTE | 2021-12-22 19:35 | NUR ---
TAMMIE RN OPENING NOTES RECEIVED PT IN BED, BOTH EYES CLOSED. A/O X1 WITH VERBALLY RESPONSIVE. ON O2 AT 6L/MIN VIA N/C AND PT TOLERATED WELL. IV ACCESS ON LT HAND#20G INTACT AND PATENT. NO S/S OF INFILTRATIONS. NO FACIAL GRIMACING NOTED. NO ACUTE DISTRESS. GTUBE FEEDING TOLERATED WELL. ON JEVITY 1.2 @ 70ML/HR. ALL SAFETY MEASURES IN PLACE. BED IN LOWEST POSITION AND LOCKED. BED ALARM ON, SIDE RAILS UPX3, PLACE CALL LIGHT WITHIN REACH, WILL CONTINUE TO MONITOR.
[2021-12-22 20:00] VITALS: BP 113/57
[2021-12-22] MEDS: ATORVASTATIN 40 MG TABLET GT SCH (21:36)
[2021-12-23] VITALS: BP 123/68
[2021-12-23] MEDS: DILTIAZEM HCL 30 MG TABLET GT SCH ×4 (00:23→17:22)
[2021-12-23 04:00] VITALS: BP 119/67
[2021-12-23] MEDS: POLYVINYL ALCOHOL 15 ML BOTTLE OP SCH ×3 (05:11→21:31)
--- NOTE | 2021-12-23 06:47 | NUR ---
TAMMIE RN CLOSING NOTES PT IN BED, BOTH EYES CLOSED. A/O X1 WITH VERBALLY RESPONSIVE. ON O2 AT 6L/MIN VIA N/C AND PT TOLERATED WELL. O2 SAT 98%. IV ACCESS ON LT HAND#20G INTACT AND PATENT. NO S/S OF INFILTRATIONS. NO FACIAL GRIMACING NOTED. NO ACUTE DISTRESS. GTUBE FEEDING TOLERATED WELL. ON JEVITY 1.2 @ 70ML/HR. CONDOM CATHETER IN PLACE. ABLE TO VOID WITHOUT DIFFICULTY. HAS 1X BOWEL MOVEMENT. ALL DUE MEDS GIVEN ORDERED. ALL SAFETY MEASURES IN PLACE. BED IN LOWEST POSITION AND LOCKED. BED ALARM ON, SIDE RAILS UPX3, PLACE CALL LIGHT WITHIN REACH, WILL ENDORSE TO MORNING SHIFT NURSE.
[2021-12-23 07:20] LABS: BASOPHILS % (AUTO) 0.1 % (0.0-2.0); EOSINOPHILS % (AUTO) 0.1 % (0.0-6.0); HEMATOCRIT 24 % (39-51); HEMOGLOBIN 7.8 g/dL (13.5-17.5); LYMPHOCYTES # (AUTO) 0.7 K/uL (0.8-4.8); LYMPHOCYTES % (AUTO) 6.6 % (20.0-44.0); MEAN CORPUSCULAR HGB CONC 32 g/dl (31.0-36.0); MEAN CORPUSCULAR VOLUME 83 fL (80-96); MONOCYTES # (AUTO) 1.2 K/uL (0.1-1.30); MONOCYTES % (AUTO) 10.9 % (2.0-12.0); NEUTROPHILS # (AUTO) 8.7 K/uL (1.8-8.9); NEUTROPHILS % (AUTO) 82.3 % (43.0-81.0); PLATELET COUNT (AUTO) 210 K/uL (150-450); RED BLOOD CELL COUNT(AUTO) 2.91 MIL/uL (4.5-6.0); WHITE BLOOD COUNT (AUTO) 10.6 K/uL (4.3-11.0)
[2021-12-23 07:27] LABS: ALBUMIN 2.8 g/dL (3.4-5.0); BILIRUBIN,TOTAL 0.6 mg/dL (0.2-1.0); CALCIUM, SERUM 8.4 mg/dL (8.5-10.1); CREATININE 1.2 mg/dL (0.6-1.3); MAGNESIUM 2.6 mg/dL (1.8-2.4); PHOSPHORUS 3.7 mg/dL (2.5-4.9); POTASSIUM 3.9 mmol/L (3.5-5.1)
--- NOTE | 2021-12-23 07:55 | NUR ---
ANESTHESIOLOGIST AND CRITICAL CARE OPENING NOTE PATIENT IS ALERT AND ORIENTED X1-2. PATIENT IS ON 6L NASAL CANNULA TOLERATING AT 98%. PATIENT HAS REDNESS ON RIGHT LEG.PATIENT IS ON JEVITY RUNNING AT 70ML/HR. PATIENT HAS IV ON LEFT HAND 20 GAUGE. IV PATENT AND FLUSHING WELL. ALL SAFETY MEASURES IN PLACE. CALL LIGHT WITHIN REACH. BED LOCKED AT LOWEST POSITION. SIDE RAILS UPX2.BED ALARM ON.
[2021-12-23 08:00] VITALS: BP 115/62
[2021-12-23] MEDS: CEFEPIME 2 GM in IV D5W 100 ML IV SCH ×2 (08:21→21:27)
[2021-12-23] MEDS: DOCUSATE SODIUM LIQ 100 MG/10 ML UDC GT SCH ×2 (08:21→17:18)
[2021-12-23] MEDS: ASPIRIN 81 MG TAB.CHEW GT SCH (08:21)
[2021-12-23] MEDS: THIAMINE HCL 100 MG TABLET GT SCH (08:22)
[2021-12-23] MEDS: PANTOPRAZOLE 40 MG/PACK PACK GT SCH (08:22)
[2021-12-23] MEDS: DEXAMETHASONE SOD PHOSPHATE 10 MG/ML VIAL IV SCH (08:22)
[2021-12-23] MEDS: CHOLECALCIFEROL 1,000 UNIT TABLET (VIT D3) GT SCH (08:22)
[2021-12-23] MEDS: MULTIVITAMINS,THERAGRAN 1 UDTAB TABLET GT SCH (08:22)
[2021-12-23] MEDS: ASCORBIC ACID 500 MG TABLET PO SCH (08:22)
[2021-12-23] MEDS: METOPROLOL TARTRATE 50 MG TABLET GT SCH ×2 (08:23→17:19)
[2021-12-23] MEDS: APIXABAN 5 MG TABLET GT SCH ×2 (08:24→21:28)
[2021-12-23] MEDS: JEVITY 1.2 CAL 1,000 ML BOTTLE GT PRN (10:12)
[2021-12-23 12:00] VITALS: BP 101/55
--- NOTE | 2021-12-23 12:23 | NUR ---
notified dr. pemberton that patient bp 101/55. notified that he has cardizem due at 1300. and if it was okay to hold medication due to low bp. said okay to hold due to lot of lasix given earlier
[2021-12-23] MEDS: DIGOXIN ELIX UDC 0.25 MG/5 ML UDC GT SCH (12:48)
--- NOTE | 2021-12-23 15:58 | NUR ---
notified dr. pemberton that patient's troponin was 112 on 12/21 and now troponin is 107
[2021-12-23 16:00] VITALS: BP 117/68
--- NOTE | 2021-12-23 19:30 | NUR ---
WINDER OPERATOR OPENING NOTE RECEIVED PATIENT IS A/O X1-2. PATIENT IS ON 6L NASAL CANNULA TOLERATING WELL AT 98%. PATIENT SEEMS TO HAVE LABORED BREATHING. IV ACCESS L HAND 20G. PATIENT HAS G TUBE RUNNING JEVITY @70ML/HR. IV PATENT AND FLUSHING WELL. PATIENT HAS CONDOM CATH DRAINING CLEAR YELLOW URINE. ALL SAFETY MEASURES IN PLACE. CALL LIGHT WITHIN REACH. BED LOCKED AT LOWEST POSITION. SIDE RAILS UPX2.BED ALARM ON. WILL CONTINUE TO MONITOR.
--- NOTE | 2021-12-23 19:47 | NUR ---
TELE/CAR PARK ATTENDANT CLOSING NOTE PATIENT IS ALERT AND ORIENTED X1-2. PATIENT IS ON 6L NASAL CANNULA TOLERATING AT ABOVE 94%. PATIENT HAS REDNESS ON RIGHT LEG.PATIENT HAS PURPLE BRUISES ON LEGS. PATIENT HAS PITTING EDEMA ON BILATERAL LOWER EXTREMITIES AND UPPER EXTREMITIES.PATIENT IS ON JEVITY RUNNING AT 70ML/HR. PATIENT HAS CONDOM CATHETHER. YELLOW COLOR DRAINING TO GRAVITY. KEPT CLEAN AND DRY. PATIENT HAS IV ON LEFT HAND 20 GAUGE. IV PATENT AND FLUSHING WELL. ALL SAFETY MEASURES IN PLACE. CALL LIGHT WITHIN REACH. BED LOCKED AT LOWEST POSITION. SIDE RAILS UPX2.BED ALARM ON.
[2021-12-23 20:00] VITALS: BP 119/67
[2021-12-23] MEDS: ATORVASTATIN 40 MG TABLET GT SCH (21:27)
[2021-12-24] VITALS: BP 130/65
[2021-12-24] MEDS: DILTIAZEM HCL 30 MG TABLET GT SCH ×4 (00:03→17:59)
[2021-12-24 04:00] VITALS: BP 132/70
[2021-12-24] MEDS: JEVITY 1.2 CAL 1,000 ML BOTTLE GT PRN ×2 (04:35→17:59)
[2021-12-24] MEDS: POLYVINYL ALCOHOL 15 ML BOTTLE OP SCH ×3 (05:14→22:07)
--- NOTE | 2021-12-24 06:47 | NUR ---
SCISSORS GRINDER CLOSING NOTE PATIENT IS A/O X1-2. PATIENT IS ON 6L NASAL CANNULA TOLERATING WELL AT 98%. PATIENT SEEMS TO HAVE LABORED BREATHING. IV ACCESS L HAND 20G. PATIENT HAS G TUBE RUNNING JEVITY @70ML/HR. IV PATENT AND FLUSHING WELL. PATIENT HAS CONDOM CATH DRAINING CLEAR YELLOW URINE. ALL DUE MEDS GIVEN. ALL SAFETY MEASURES IN PLACE. CALL LIGHT WITHIN REACH. BED LOCKED AT LOWEST POSITION. SIDE RAILS UPX2.BED ALARM ON. PATIENT TURNED AND REPOSITION Q2H. WILL ENDORSE TO MORNING SHIFT.
[2021-12-24 07:16] LABS: BASOPHILS % (AUTO) 0.1 % (0.0-2.0); EOSINOPHILS % (AUTO) 0.1 % (0.0-6.0); HEMATOCRIT 26 % (39-51); HEMOGLOBIN 7.9 g/dL (13.5-17.5); LYMPHOCYTES # (AUTO) 0.5 K/uL (0.8-4.8); LYMPHOCYTES % (AUTO) 4.2 % (20.0-44.0); MEAN CORPUSCULAR HGB CONC 31 g/dl (31.0-36.0); MEAN CORPUSCULAR VOLUME 86 fL (80-96); MONOCYTES # (AUTO) 1.1 K/uL (0.1-1.30); MONOCYTES % (AUTO) 9.6 % (2.0-12.0); NEUTROPHILS # (AUTO) 9.5 K/uL (1.8-8.9); PLATELET COUNT (AUTO) 201 K/uL (150-450); RED BLOOD CELL COUNT(AUTO) 2.95 MIL/uL (4.5-6.0)
--- NOTE | 2021-12-24 07:19 | NUR ---
RN OPENING NOTE RECEIVED PATIENT IS A/O X1-2. PATIENT IS ON 6L NASAL CANNULA . PATIENT SEEMS TO HAVE LABORED BREATHING. IV ACCESS L HAND 20G. PATIENT HAS G TUBE RUNNING JEVITY @70ML/HR. IV PATENT AND FLUSHING WELL. PATIENT HAS CONDOM CATH DRAINING CLEAR YELLOW URINE. ALL SAFETY MEASURES IN PLACE. CALL LIGHT WITHIN REACH. BED LOCKED AT LOWEST POSITION. SIDE RAILS UPX2.BED ALARM ON.
[2021-12-24 08:00] VITALS: BP 111/66
[2021-12-24 08:34] LABS: CALCIUM, SERUM 8.6 mg/dL (8.5-10.1); CREATININE 1.2 mg/dL (0.6-1.3)
[2021-12-24] MEDS: ASPIRIN 81 MG TAB.CHEW GT SCH (09:18)
[2021-12-24] MEDS: CEFEPIME 2 GM in IV D5W 100 ML IV SCH ×2 (09:18→22:01)
[2021-12-24] MEDS: ASCORBIC ACID 500 MG TABLET PO SCH (09:18)
[2021-12-24] MEDS: MULTIVITAMINS,THERAGRAN 1 UDTAB TABLET GT SCH (09:18)
[2021-12-24] MEDS: PANTOPRAZOLE 40 MG/PACK PACK GT SCH (09:18)
[2021-12-24] MEDS: DOCUSATE SODIUM LIQ 100 MG/10 ML UDC GT SCH ×2 (09:18→17:59)
[2021-12-24] MEDS: CHOLECALCIFEROL 1,000 UNIT TABLET (VIT D3) GT SCH (09:19)
[2021-12-24] MEDS: DEXAMETHASONE SOD PHOSPHATE 10 MG/ML VIAL IV SCH (09:19)
[2021-12-24] MEDS: METOPROLOL TARTRATE 50 MG TABLET GT SCH ×2 (09:19→17:59)
[2021-12-24] MEDS: THIAMINE HCL 100 MG TABLET GT SCH (09:19)
[2021-12-24] MEDS: APIXABAN 5 MG TABLET GT SCH ×2 (09:20→21:58)
[2021-12-24 12:00] VITALS: BP 120/65
--- NOTE | 2021-12-24 12:00 | NUR ---
RN NOTE PATIENT 02 SAT 89% ON 5L NC INCREASED ON 6L 02 READING INCREASED TO 92%.
[2021-12-24] MEDS: DIGOXIN ELIX UDC 0.25 MG/5 ML UDC GT SCH (12:23)
[2021-12-24 16:00] VITALS: BP 117/64
--- NOTE | 2021-12-24 19:04 | NUR ---
POKE IN CLOSING NOTE PATIENT IS A/O X1-2. PATIENT IS ON 6L NASAL CANNULA TOLERATING WELL AT 98%. PATIENT SEEMS TO HAVE LABORED BREATHING. IV ACCESS L HAND 20G. PATIENT HAS G TUBE RUNNING JEVITY @70ML/HR. IV PATENT AND FLUSHING WELL. PATIENT HAS CONDOM CATH DRAINING CLEAR YELLOW URINE. ALL DUE MEDS GIVEN. ALL SAFETY MEASURES IN PLACE. CALL LIGHT WITHIN REACH. BED LOCKED AT LOWEST POSITION. SIDE RAILS UPX2.BED ALARM ON. .
[2021-12-24 20:00] VITALS: BP 134/77
--- NOTE | 2021-12-24 20:00 | NUR ---
RN OPENING NOTE RECEIVED PATIENT IN BED A/O X1-2. ON 5L OF 02 VIA NASAL CANNULA .SATING 96% NO SOB NO DISTRESS NOTED ,V/S STABLE AFEBRILE ,WITH IV ACCESS L HAND 20G SL INTACT AND PATENT . G TUBE RUNNING JEVITY1.2 @70ML/HR. IV PATENT AND FLUSHING WELL. PATIENT HAS CONDOM CATH DRAINING CLEAR YELLOW URINE. ALL SAFETY MEASURES IN PLACE. CALL LIGHT WITHIN REACH. BED LOCKED AT LOWEST POSITION. SIDE RAILS UPX2.BED ALARM ON.
[2021-12-24] MEDS: ATORVASTATIN 40 MG TABLET GT SCH (21:59)
[2021-12-25] VITALS: BP 127/69
[2021-12-25] MEDS: DILTIAZEM HCL 30 MG TABLET GT SCH ×4 (00:35→17:10)
[2021-12-25 04:00] VITALS: BP 113/64
[2021-12-25] MEDS: POLYVINYL ALCOHOL 15 ML BOTTLE OP SCH ×3 (05:08→20:56)
[2021-12-25 06:36] LABS: EOSINOPHILS % (AUTO) 0.1 % (0.0-6.0); HEMATOCRIT 23 % (39-51); HEMOGLOBIN 7.3 g/dL (13.5-17.5); LYMPHOCYTES # (AUTO) 0.6 K/uL (0.8-4.8); LYMPHOCYTES % (AUTO) 5.9 % (20.0-44.0); MEAN CORPUSCULAR HGB CONC 31 g/dl (31.0-36.0); MEAN CORPUSCULAR VOLUME 86 fL (80-96); MONOCYTES % (AUTO) 9.1 % (2.0-12.0); NEUTROPHILS # (AUTO) 8.9 K/uL (1.8-8.9); NEUTROPHILS % (AUTO) 84.9 % (43.0-81.0); PLATELET COUNT (AUTO) 201 K/uL (150-450); RED BLOOD CELL COUNT(AUTO) 2.72 MIL/uL (4.5-6.0); WHITE BLOOD COUNT (AUTO) 10.5 K/uL (4.3-11.0)
--- NOTE | 2021-12-25 07:21 | NUR ---
RN OPENING NOTE RECEIVED PATIENT IS A/O X1-2. PATIENT IS ON 5L NASAL CANNULA . PATIENT SEEMS TO HAVE LABORED BREATHING. IV ACCESS L HAND 20G. PATIENT HAS G TUBE RUNNING JEVITY @70ML/HR. IV PATENT AND FLUSHING WELL. PATIENT HAS CONDOM CATH DRAINING CLEAR YELLOW URINE. ALL SAFETY MEASURES IN PLACE. CALL LIGHT WITHIN REACH. BED LOCKED AT LOWEST POSITION. SIDE RAILS UPX2.BED ALARM ON.
[2021-12-25 07:25] LABS: CALCIUM, SERUM 8.5 mg/dL (8.5-10.1); CREATININE 1.1 mg/dL (0.6-1.3); POTASSIUM 3.8 mmol/L (3.5-5.1)
--- NOTE | 2021-12-25 07:28 | NUR ---
HEALTH CARE ANALYST CLOSING NOTES PTS REMAIN IN BED ON 5LITERS OF O2 VIA NC , SR IST DEGREE AVB ON MONITOR , NO SOB NO DISTRESS NOTED ,WILL ENDORSE PTS TO RN DAY SHIFT FOR CONTINUITY OF CARE
--- NOTE | 2021-12-25 07:58 | NUR ---
RN NOTE INFORMED DR DELGADO BUN 81. RECEIVED NO FURTHER ORDERS DUE TO PATIENT IN HEART FAILURE AND PULMONARY CONGESTION
[2021-12-25 08:00] VITALS: BP 125/69
[2021-12-25] MEDS: CHOLECALCIFEROL 1,000 UNIT TABLET (VIT D3) GT SCH (08:34)
[2021-12-25] MEDS: MULTIVITAMINS,THERAGRAN 1 UDTAB TABLET GT SCH (08:34)
[2021-12-25] MEDS: ASCORBIC ACID 500 MG TABLET PO SCH (08:34)
[2021-12-25] MEDS: DEXAMETHASONE SOD PHOSPHATE 10 MG/ML VIAL IV SCH (08:34)
[2021-12-25] MEDS: PANTOPRAZOLE 40 MG/PACK PACK GT SCH (08:34)
[2021-12-25] MEDS: METOPROLOL TARTRATE 50 MG TABLET GT SCH ×2 (08:34→17:10)
[2021-12-25] MEDS: DOCUSATE SODIUM LIQ 100 MG/10 ML UDC GT SCH ×2 (08:34→17:10)
[2021-12-25] MEDS: ASPIRIN 81 MG TAB.CHEW GT SCH (08:35)
[2021-12-25] MEDS: THIAMINE HCL 100 MG TABLET GT SCH (08:35)
[2021-12-25] MEDS: APIXABAN 5 MG TABLET GT SCH ×2 (08:36→20:57)
[2021-12-25] MEDS: CEFEPIME 2 GM in IV D5W 100 ML IV SCH ×2 (08:43→20:54)
[2021-12-25] MEDS: JEVITY 1.2 CAL 1,000 ML BOTTLE GT PRN (10:49)
[2021-12-25] MEDS: DIGOXIN ELIX UDC 0.25 MG/5 ML UDC GT SCH (12:31)
[2021-12-25 16:00] VITALS: BP 123/67
--- NOTE | 2021-12-25 19:10 | NUR ---
CROSS TIE TURNER CLOSING NOTE PATIENT IS A/O X1-2. PATIENT IS ON 5L NASAL CANNULA . PATIENT SEEMS TO HAVE LABORED BREATHING. IV ACCESS L HAND 20G. PATIENT HAS G TUBE RUNNING JEVITY @70ML/HR. IV PATENT AND FLUSHING WELL. PATIENT HAS CONDOM CATH DRAINING CLEAR YELLOW URINE. ALL DUE MEDS GIVEN. ALL SAFETY MEASURES IN PLACE. CALL LIGHT WITHIN REACH. BED LOCKED AT LOWEST POSITION. SIDE RAILS UPX2.BED ALARM ON. .
[2021-12-25 20:00] VITALS: BP 90/50
--- NOTE | 2021-12-25 20:00 | NUR ---
RN OPENING NOTE RECEIVED PATIENT IN BED A/O X1-2. ON 5L OF 02 VIA NASAL CANNULA .SATING 96% NO SOB NO DISTRESS NOTED ,V/S STABLE AFEBRILE ,HOB ELEVATED AT ALL TIMES . .WITH IV ACCESS L HAND 20G SL INTACT AND PATENT . G TUBE RUNNING JEVITY1.2 @70ML/HR. IV PATENT AND FLUSHING WELL.ALL DUE MEDS GIVEN ORDERED .NO ASE NOTED . HAS CONDOM CATH DRAINING CLEAR YELLOW URINE. ALL SAFETY MEASURES IN PLACE. CALL LIGHT WITHIN REACH. BED LOCKED AT LOWEST POSITION. SIDE RAILS UPX2.BED ALARM ON. WILL CONTINUE TO MONITOR PTS.
[2021-12-25] MEDS: ATORVASTATIN 40 MG TABLET GT SCH (21:02)
[2021-12-26] MEDS: DILTIAZEM HCL 30 MG TABLET GT SCH ×4 (00:33→17:21)
[2021-12-26 04:00] VITALS: BP 127/75
[2021-12-26] MEDS: POLYVINYL ALCOHOL 15 ML BOTTLE OP SCH ×3 (05:15→22:15)
[2021-12-26] MEDS: JEVITY 1.2 CAL 1,000 ML BOTTLE GT PRN ×2 (05:42→22:47)
[2021-12-26 07:02] LABS: BASOPHILS % (AUTO) 0.1 % (0.0-2.0); EOSINOPHILS % (AUTO) 0.2 % (0.0-6.0); HEMATOCRIT 23 % (39-51); HEMOGLOBIN 7.2 g/dL (13.5-17.5); LYMPHOCYTES # (AUTO) 0.7 K/uL (0.8-4.8); LYMPHOCYTES % (AUTO) 6.7 % (20.0-44.0); MEAN CORPUSCULAR HGB CONC 31 g/dl (31.0-36.0); MEAN CORPUSCULAR VOLUME 88 fL (80-96); MONOCYTES # (AUTO) 0.9 K/uL (0.1-1.30); MONOCYTES % (AUTO) 8.7 % (2.0-12.0); NEUTROPHILS # (AUTO) 8.8 K/uL (1.8-8.9); NEUTROPHILS % (AUTO) 84.3 % (43.0-81.0); PLATELET COUNT (AUTO) 207 K/uL (150-450); RED BLOOD CELL COUNT(AUTO) 2.62 MIL/uL (4.5-6.0); WHITE BLOOD COUNT (AUTO) 10.4 K/uL (4.3-11.0)
--- NOTE | 2021-12-26 07:18 | NUR ---
RN CLOSING NOTE: PATIENT REMAINS IN ROOM IN NO SIGNS OF RESPIRATORY DISTRESS, PATIENT STILL ON 5L OF 02 VIA NC;TOLERATING WELL SATURATING @ >95% SP02. SAFETY MEASURES IMPLEMENTED, BED IN LOWEST POSITION, LOCKED, SIDE RAILS UP, CALL LIGHT WITHIN REACH. ALL NEEDS AND ORDERS ADDRESSED DURING THE SHIFT. IV ACCESS MAINTAINED INTACT, SECURED AND FLUSHING WELL. ALL DUE MEDS GIVEN ORDERED & SCHEDULED ; PATIENT TOLERATED WELL. PATIENT KEPT CLEAN AND COMFORTABLE WITHIN THE SHIFT. PATIENT ENDORSED TO INCOMING SHIFT RN WITH STABLE VITAL SIGN AND FOR CONTINUITY OF CARE.
[2021-12-26 07:22] LABS: CALCIUM, SERUM 8.8 mg/dL (8.5-10.1); CREATININE 1.1 mg/dL (0.6-1.3)
--- NOTE | 2021-12-26 07:27 | NUR ---
MS RN OPENING NOTE RECEIVED PT IN BED ASLEEP, EASILY AROUSED. PT IS A/O X1, REORIENTED PT NEEDED. ON O2 AT 5 L/MIN VIA NASAL CANNULA, TOLERATING WELL. NO SOB NOTED. NOT IN ANY SIGN OF DISTRESS. GTUBE FEEDING IN PLACE AND INTACT WITH JEVITY 1.2 RUNNING AT 70ML/HR. KEPT HOB ELEVATED. IV ACCESS IN L HAND G #20, INTACT AND PATENT. SAFETY MEASURES IN PLACE: BED IN LOWEST AND LOCKED POSITION, BED ALARM ON, SIDE RAILS UPX2, AND CALL LIGHT WITHIN REACH. WILL CONTINUE TO MONITOR PT.
[2021-12-26] MEDS: CEFEPIME 2 GM in IV D5W 100 ML IV SCH ×2 (09:47→22:03)
[2021-12-26] MEDS: PANTOPRAZOLE 40 MG/PACK PACK GT SCH (09:48)
[2021-12-26] MEDS: MULTIVITAMINS,THERAGRAN 1 UDTAB TABLET GT SCH (09:48)
[2021-12-26] MEDS: ASPIRIN 81 MG TAB.CHEW GT SCH (09:48)
[2021-12-26] MEDS: DOCUSATE SODIUM LIQ 100 MG/10 ML UDC GT SCH ×2 (09:48→17:20)
[2021-12-26] MEDS: CHOLECALCIFEROL 1,000 UNIT TABLET (VIT D3) GT SCH (09:48)
[2021-12-26] MEDS: THIAMINE HCL 100 MG TABLET GT SCH (09:48)
[2021-12-26] MEDS: ASCORBIC ACID 500 MG TABLET GT SCH (09:48)
[2021-12-26] MEDS: DEXAMETHASONE SOD PHOSPHATE 10 MG/ML VIAL IV SCH (09:49)
[2021-12-26] MEDS: METOPROLOL TARTRATE 50 MG TABLET GT SCH ×2 (09:49→17:21)
[2021-12-26] MEDS: APIXABAN 5 MG TABLET GT SCH ×2 (09:57→22:03)
--- NOTE | 2021-12-26 09:58 | NUR ---
RN NOTE CALLED DR. JOYCE AND MADE HIM AWARE OF PT'S LAB RESULT, HEMOGLOBIN 7.2, HEMATOCRIT 23 WITH NO ACTIVE BLEEDING NOTED. AND CLARIFIED IF OK TO STILL GIVE ELIQUIS MEDICATION SCHEDULED AT [address]. PER DR. JYOCE IT'S OK TO ADMINISTER ELIQUIS.
[2021-12-26 12:00] VITALS: BP 122/69
[2021-12-26] MEDS: DIGOXIN ELIX UDC 0.25 MG/5 ML UDC GT SCH (13:00)
--- NOTE | 2021-12-26 13:25 | NUR ---
RN NOTE DIGOXIN HELD PER PARAMETER TO HOLD IF HR RATE IS <60. PT'S CURRENT HR IS 58.
--- NOTE | 2021-12-26 19:14 | NUR ---
MS RN CLOSING NOTE PT IN BED ASLEEP, EASILY AROUSED. PT IS A/O X1, REORIENTED PT NEEDED. ON O2 AT 5 L/MIN VIA NASAL CANNULA, TOLERATING WELL. NO SOB NOTED. NOT IN ANY SIGN OF DISTRESS. GTUBE FEEDING IN PLACE AND INTACT WITH JEVITY 1.2 RUNNING AT 70ML/HR. KEPT HOB ELEVATED. IV ACCESS IN L HAND G #20, INTACT AND PATENT. ALL NEEDS ATTENDED. KEPT CLEAN AND COMFORTABLE. SAFETY MEASURES IN PLACE: BED IN LOWEST AND LOCKED POSITION, BED ALARM ON, SIDE RAILS UPX2, AND CALL LIGHT WITHIN REACH. ENDORSED TO BUSINESS PROCESS ASSOCIATE NURSE FOR NINO.
--- NOTE | 2021-12-26 19:15 | NUR ---
RN NOTES RECEIVED PT FOR CONTINUITY OF CARE. PATIENT A/OX1 IN NO S/SX OF ACUTE DISTRESS AT THIS TIME; CURRENTLY ON 5L OF O2 VIA NC; WITH 02 SAT 98% AT THIS TIME, WILL TRY TO TITRATE DOWN PLANNED. MED SURG STATUS. WITH IV ACCESS PATENT, INTACT AND FLUSHING WELL. ON TUBE FEEDING ORDERED. WILL ENSURE SAFETY MEASURES WITHIN THE SHIFT. PATIENT BED ALARM IS ON. HEAD OF BED ELEVATED. BED IS LOCKED, IN LOWEST POSITION AND SIDE RAILS UP. CALL LIGHT WITHIN REACH OF THE PATIENT. WILL CONTINUE TO MONITOR AND REASSESS FOR ANY CHANGES AND WILL CARRY OUT ANY ONGOING AND ACTIVE MD ORDER.
[2021-12-26 20:00] VITALS: BP 137/68
[2021-12-26] MEDS: ATORVASTATIN 40 MG TABLET GT SCH (22:02)
[2021-12-27] MEDS: DILTIAZEM HCL 30 MG TABLET GT SCH ×4 (00:33→18:05)
[2021-12-27 04:00] VITALS: BP 125/65
[2021-12-27] MEDS: POLYVINYL ALCOHOL 15 ML BOTTLE OP SCH ×3 (05:23→21:18)
--- NOTE | 2021-12-27 06:48 | NUR ---
RN CLOSING NOTE: PATIENT REMAINS IN ROOM IN NO SIGNS OF RESPIRATORY DISTRESS, NOW ON 3L OF 02 VIA NC (SINCE 4AM);TOLERATING WELL SATURATING BETWEEN 92-96% SP02. PLAN: LABS FOR TODAY AND ABG ON A 3L O2. SAFETY MEASURES IMPLEMENTED, BED IN LOWEST POSITION, LOCKED, SIDE RAILS UP, CALL LIGHT WITHIN REACH. ALL NEEDS AND ORDERS ADDRESSED DURING THE SHIFT. IV ACCESS MAINTAINED INTACT, SECURED AND FLUSHING WELL. ALL DUE MEDS GIVEN ORDERED & SCHEDULED ; PATIENT TOLERATED WELL. PATIENT KEPT CLEAN AND COMFORTABLE WITHIN THE SHIFT. PATIENT ENDORSED TO INCOMING SHIFT RN WITH STABLE VITAL SIGN AND FOR CONTINUITY OF CARE.
[2021-12-27 07:03] LABS: EOSINOPHILS % (AUTO) 0.2 % (0.0-6.0); HEMATOCRIT 24 % (39-51); HEMOGLOBIN 7.5 g/dL (13.5-17.5); LYMPHOCYTES # (AUTO) 1.1 K/uL (0.8-4.8); LYMPHOCYTES % (AUTO) 11.3 % (20.0-44.0); MEAN CORPUSCULAR HGB CONC 31 g/dl (31.0-36.0); MEAN CORPUSCULAR VOLUME 88 fL (80-96); MONOCYTES # (AUTO) 0.8 K/uL (0.1-1.30); MONOCYTES % (AUTO) 8.2 % (2.0-12.0); NEUTROPHILS # (AUTO) 7.9 K/uL (1.8-8.9); NEUTROPHILS % (AUTO) 80.3 % (43.0-81.0); PLATELET COUNT (AUTO) 203 K/uL (150-450); RED BLOOD CELL COUNT(AUTO) 2.72 MIL/uL (4.5-6.0); WHITE BLOOD COUNT (AUTO) 9.8 K/uL (4.3-11.0)
[2021-12-27 07:13] LABS: CALCIUM, SERUM 9.1 mg/dL (8.5-10.1); CREATININE 1.1 mg/dL (0.6-1.3); POTASSIUM 4.2 mmol/L (3.5-5.1)
--- NOTE | 2021-12-27 07:30 | NUR ---
RN OPENING NOTES: RECEIVED PATIENT IN BED, ASLEEP BUT EASILY AROUSES TO VOICE AND TACTILE STIMULI. PATIENT ON OXYGEN @ 3/MIN VIA N/C WITH OXYGEN SATURATION OF 95% AT THIS TIME , NO SOB NOTED. PATIENT HAS IV ACCESS ON LEFT HAND # 20, INTACT AND FLUSHES WELL. G-TUBE INTACT, IN PLACE, NO RESIDUAL AND FLUSHES WELL, DRESSING CLEAN AND DRY. ON JEVITY 1.2 @ 70 ML/HR. CONDOM CATH IN PLACE AND DRAINING WELL WITH YELLOW URINE, NO HEMATURIA AND NO SEDIMENTATION NOTED. HOB KEPT ELEVATED. BED LOCKED AND IN LOWEST POSITION. ALL SAFETY MEASURES IN PLACE. WILL CONTINUE TO MONITOR PATIENT THROUGHOUT SHIFT.
[2021-12-27] MEDS: APIXABAN 5 MG TABLET GT SCH ×2 (08:36→21:03)
[2021-12-27] MEDS: CHOLECALCIFEROL 1,000 UNIT TABLET (VIT D3) GT SCH (08:45)
[2021-12-27] MEDS: MULTIVITAMINS,THERAGRAN 1 UDTAB TABLET GT SCH (08:45)
[2021-12-27] MEDS: ASPIRIN 81 MG TAB.CHEW GT SCH (08:45)
[2021-12-27] MEDS: ASCORBIC ACID 500 MG TABLET GT SCH (08:45)
[2021-12-27] MEDS: DOCUSATE SODIUM LIQ 100 MG/10 ML UDC GT SCH ×2 (08:46→18:05)
[2021-12-27] MEDS: PANTOPRAZOLE 40 MG/PACK PACK GT SCH (08:46)
[2021-12-27] MEDS: METOPROLOL TARTRATE 50 MG TABLET GT SCH ×2 (08:46→18:05)
[2021-12-27] MEDS: THIAMINE HCL 100 MG TABLET GT SCH (08:47)
[2021-12-27] MEDS: DEXAMETHASONE SOD PHOSPHATE 10 MG/ML VIAL IV SCH (08:47)
[2021-12-27] MEDS: CEFEPIME 2 GM in IV D5W 100 ML IV SCH ×2 (08:48→21:03)
--- NOTE | 2021-12-27 08:50 | NUR ---
PATIENT WAS NOTED TO HAVE OXYGEN SATURATION OF 89-92%. RESPIRATORY THERAPIST IN THE ROOM AND SUCTIONED PATIENT WITH DARK BROWNISH THICK PHLEGM. PATIENT TOLERATED WELL.
[2021-12-27 08:59] LABS: ABG BASE EXCESS 10.9 mmol/L; ABG OXYGEN SATURATION 94.5 % (92.0-98.5); ABG PCO2 42.4 mmHg (35.0-45.0); ABG PO2 72.5 mmHg (75.0-100.0); AaDO2 106.1 mmHg; COHb 1.8 % (0.5-1.5); MetHb 0.2 % (0.0-1.5); O2Hb 92.6 % (94.0-97.0); SITE, ABG Left Radial; VENT MODE, BG 3L NC
--- NOTE | 2021-12-27 10:30 | NUR ---
RECEIVED AN ORDER FOR DISCHARGE. CALLED PARAS ARMSTRONG @ TO GIVE REPORT, SPOKE WITH BERNARDINO BUT CHARGE NURSE SARAVANAN IS NOT AVAILABLE AT THIS TIME AND WILL CALL US BACK. EXPLAINED TO HER THAT THE PICKUP TIME IS AT 12 NOON. WILL WAIT FOR THE CALLBACK. CALLED LIBORIO COON @ [phone] AND LEFT MESSAGE FOR HIS INFORMATION AND TO CALL US BACK FOR ANY QUESTIONS.
--- NOTE | 2021-12-27 12:19 | NUR ---
PATIENT DESATURATES ON 3 LITERS,SUCTIONED SECRETION KEEP HIGH BACK REST AND INCREASE OXYGEN TO 6 LITERS SAT IMPROVES TO 935, NOTIFIED HELD DISCHARGE.GUNSTOCK SPRAY UNIT ADJUSTER NOTIFIED.
--- NOTE | 2021-12-27 12:20 | NUR ---
ADDENDUM 93%.
--- NOTE | 2021-12-27 12:40 | NUR ---
RECEIVED AN ORDER FROM DR. ELIZONDO FOR CXR AND SUCTIONING. ORDERS NOTED AND CARRIED OUT. SPOKE WITH SARAVANAN FROM THE [facility] AND INFORMED THAT THE PATIENT WILL NOT BE DISCHARGED TODAY. ALSO CALLED SON JAYMIE @ AND LEFT MESSAGE THAT THE PATENT WILL BE STAYING HERE AT [facility]
[2021-12-27] MEDS: DIGOXIN ELIX UDC 0.25 MG/5 ML UDC GT SCH (13:04)
[2021-12-27] MEDS: JEVITY 1.2 CAL 1,000 ML BOTTLE GT PRN (18:13)
--- NOTE | 2021-12-27 19:00 | NUR ---
RN CLOSING NOTES: PATIENT IN BED,ASLEEP, BUT EASILY AROUSES TO VOCE AND TOUCH. PATIENT HAS NO S/S OF RESPIRATORY DISTRESS. ON OXYGEN @ 6L/MIN VIA NC/ WITH SATURATION OF 96%. LEFT HAND SALINE LOCK INTACT ON LEFT HAND, FLUSHES WELL. ON JEVITY 1.2 FEEDING @ 70 CC/HR. G-TUBE SITE CLEAN AND DRY. G-TUBE IN PLACE, NO RESIDUAL NOTED. PLACE IN HIGH METCALF'S POSITION. CONDOM CATH INTACT. BED LOCKED AND IN LOWEST POSITION. CALL LIGHT WITHIN REACH. WILL ENDORSE TO NEXT SHIFT NURSE FOR CONTINUITY OF CARE
--- NOTE | 2021-12-27 19:30 | NUR ---
MS RN OPENING NOTE RECEIVED PATIENT IS A/O X1-2. PATIENT IS ON 5L NASAL CANNULA TOLERATING WELL AT 98%. PATIENT SEEMS TO HAVE SLIGHTLY LABORED BREATHING. IV ACCESS L HAND 20G. PATIENT HAS G TUBE RUNNING JEVITY @70ML/HR. IV PATENT AND FLUSHING WELL. PATIENT HAS CONDOM CATH DRAINING CLEAR YELLOW URINE. ALL SAFETY MEASURES IN PLACE. CALL LIGHT WITHIN REACH. BED LOCKED AT LOWEST POSITION. SIDE RAILS UPX2.BED ALARM ON. WILL CONTINUE TO MONITOR.
[2021-12-27 20:00] VITALS: BP 130/63
[2021-12-27] MEDS: ATORVASTATIN 40 MG TABLET GT SCH (21:03)
[2021-12-28] MEDS: DILTIAZEM HCL 30 MG TABLET GT SCH ×4 (00:41→17:32)
[2021-12-28 04:00] VITALS: BP 118/40
[2021-12-28] MEDS: POLYVINYL ALCOHOL 15 ML BOTTLE OP SCH ×3 (04:27→21:59)
--- NOTE | 2021-12-28 06:46 | NUR ---
MS RN CLOSING NOTE PATIENT IS A/O X1-2. PATIENT IS ON 5L NASAL CANNULA TOLERATING WELL AT 98%. PATIENT SEEMS TO HAVE SLIGHTLY LABORED BREATHING. IV ACCESS L HAND 20G. PATIENT HAS G TUBE RUNNING JEVITY @70ML/HR. IV PATENT AND FLUSHING WELL. PATIENT HAS CONDOM CATH DRAINING CLEAR YELLOW URINE WITH AN OUTPUT OF 1000. ALL DUE MEDS GIVEN. ALL SAFETY MEASURES IN PLACE. CALL LIGHT WITHIN REACH. BED LOCKED AT LOWEST POSITION. SIDE RAILS UPX2.BED ALARM ON. WILL ENDORSE TO MORNING SHIFT.
--- NOTE | 2021-12-28 07:33 | NUR ---
MS OPENING NOTES: RECEIVED PATIENT IN BED, ASLEEP BUT EASILY AROUSES TO VOICE AND TOUCH. PATIENT IS ALERT, ORIENTED X1. NO SOB NOTED AT THIS TIME AND IN NO ACUTE RESPIRATORY DISTRESS. ON OXYGEN @ 5L/MIN VIA N/C WITH OXYGEN SATURATION OF 96%. PATIENT HAS AN IV ACCESS ON LEFT HAND # 20, PATENT AND FLUSHES WELL. G-TUBE FEEDING OF JEVITY 1.2 @ 70 ML/HR. G-TUBE IN PLACE, NO RESIDUAL, INTACT AND FLUSHES WELL. PATIENT HAS CONDOM CATH IN PLACE AND DRAINING WITH YELLOW COLORED URINE, NO HEMATURIA AND NO SEDIMENTATION NOTED. HOB KEPT ELEVATED. BED LOCKED AND IN LOWEST POSITION. CALL LIGHT WITHIN REACH. ALL SAFETY MEASURES IMPLEMENTED. WILL CONTINUE TO MONITOR PATIENT THROUGHOUT SHIFT.
[2021-12-28 08:00] VITALS: BP 115/52
[2021-12-28] MEDS: APIXABAN 5 MG TABLET GT SCH ×2 (09:00→21:53)
[2021-12-28] MEDS: METOPROLOL TARTRATE 50 MG TABLET GT SCH ×2 (09:00→17:32)
[2021-12-28] MEDS: THIAMINE HCL 100 MG TABLET GT SCH (09:39)
[2021-12-28] MEDS: DOCUSATE SODIUM LIQ 100 MG/10 ML UDC GT SCH ×2 (09:39→17:31)
[2021-12-28] MEDS: CHOLECALCIFEROL 1,000 UNIT TABLET (VIT D3) GT SCH (09:39)
[2021-12-28] MEDS: ASCORBIC ACID 500 MG TABLET GT SCH (09:39)
[2021-12-28] MEDS: PANTOPRAZOLE 40 MG/PACK PACK GT SCH (09:39)
[2021-12-28] MEDS: MULTIVITAMINS,THERAGRAN 1 UDTAB TABLET GT SCH (09:39)
[2021-12-28] MEDS: CEFEPIME 2 GM in IV D5W 100 ML IV SCH ×2 (09:40→21:58)
[2021-12-28] MEDS: ASPIRIN 81 MG TAB.CHEW GT SCH (09:40)
--- NOTE | 2021-12-28 09:42 | NUR ---
DR JOYCE INFORMED OF HEMOGLOBIN OF 7.5 WITH AN ORDER FOR ELIQUIS AND ORDERED TO DISCONTINUE ELIQUIS. ORDER NOTED AND CARRIED OUT.
[2021-12-28] MEDS: JEVITY 1.2 CAL 1,000 ML BOTTLE GT PRN (11:01)
[2021-12-28] MEDS: DIGOXIN ELIX UDC 0.25 MG/5 ML UDC GT SCH (12:19)
[2021-12-28 16:00] VITALS: BP 125/67
--- NOTE | 2021-12-28 18:41 | NUR ---
MS CLOSING NOTES: PATIENT IN BED, ASLEEP BUT EASILY AROUSES TO VOICE AND TACTILE STIMULI. PATIENT ANSWERS TO HIS NAME WHEN CALLED. NO RESPIRATORY DISTRESS NOTED, BREATHING EVEN AND UNLABORED. ON OXYGEN @ 5L/MIN VIA N/C WITH OXYGEN SATURATION OF 98%. HAS AN IV ACCESS ON LEFT HAND # 20, PATENT AND FLUSHES WELL. G-TUBE PATENT, IN PLACE, NO RESIDUAL AND FLUSHES WELL. HAS G-TUBE FEEDING OF JEVITY 1.2 @ 70 ML/HR. CONDOM CATH IN PLACE AND EMPTIED 400 ML OF YELLOW COLORED URINE, NO HEMATURIA AND NO SEDIMENTATION NOTED. HOB KEPT ELEVATED AT ALL TIMES. BED LOCKED AND IN LOWEST POSITION. CALL LIGHT WITHIN REACH. WILL ENDORSE TO INCOMING NURSE FOR CONTINUATION OF CARE.
--- NOTE | 2021-12-28 19:45 | NUR ---
MED SURGE RN OPEN NOTE: ALERT TO NAME. REORIENTED TO TIME AND PLACE AND SITUATION. ON O2 5LPM NC. O2 SAT AT 95 %. IV ON LEFT HAND 20G SALINE LOCKED. PATENT WITH NO S/S OF COMPLICATIONS. GT IN PLACE PATENT NO RESIDUAL. ON JEVITY 1.2 70ML/HR. HOT ELEVATED. ASPIRATION PRECAUTIONS MAINTAINED. SUCTIONED ORAL SECRETIONS. CONDOM CATH DRAINING YELLOW URINE. BILATERAL HALF SIDE RAILS UP X2. BED IS LOCKED, EXIT ALARM ON, IN LOW POSITION, CALL LIGHT WITHIN REACH. KEPT CLEAN AND COMFORTABLE. NO MOANING. NO FACIAL GRIMACING.
[2021-12-28 20:00] VITALS: BP 100/60
[2021-12-28] MEDS: ATORVASTATIN 40 MG TABLET GT SCH (21:57)
[2021-12-29] VITALS: BP 106/57
[2021-12-29] MEDS: DILTIAZEM HCL 30 MG TABLET GT SCH ×4 (00:56→17:27)
[2021-12-29] MEDS: POLYVINYL ALCOHOL 15 ML BOTTLE OP SCH ×3 (04:38→21:45)
[2021-12-29] MEDS: JEVITY 1.2 CAL 1,000 ML BOTTLE GT PRN ×2 (04:39→17:36)
--- NOTE | 2021-12-29 06:30 | NUR ---
MED SURGE RN CLOSE NOTE: ALERT TO NAME. REORIENTED TO TIME AND PLACE AND SITUATION. ON O2 5LPM NC. O2 SAT AT 96 %. IV ON LEFT HAND 20G SALINE LOCKED. ABX IV NO A/R. PATENT WITH NO S/S OF COMPLICATIONS. GT IN PLACE PATENT NO RESIDUAL. ON JEVITY 1.2 70ML/HR. HOB ELEVATED. ASPIRATION PRECAUTIONS MAINTAINED. SUCTIONED ORAL SECRETIONS. CONTINUES WITH GENERALIZED EDEMA. TURNED AND REPOSITIONED. CONDOM CATH DRAINING YELLOW URINE. BILATERAL HALF SIDE RAILS UP X2. BED IS LOCKED, EXIT ALARM ON, IN LOW POSITION, CALL LIGHT WITHIN REACH. KEPT CLEAN AND COMFORTABLE. NO MOANING. NO FACIAL GRIMACING.
[2021-12-29 07:07] LABS: POTASSIUM 4.1 mmol/L (3.5-5.1)
--- NOTE | 2021-12-29 07:29 | NUR ---
RN OPENING NOTES RECEIVED PATIENT IN BED, ASLEEP BUT EASILY AROUSES TO VOICE AND TOUCH. PATIENT IS ALERT, ORIENTED X1. NO SOB NOTED AT THIS TIME AND IN NO ACUTE RESPIRATORY DISTRESS. ON OXYGEN @ 5L/MIN VIA N/C . PATIENT HAS AN IV ACCESS ON LEFT HAND # 20, PATENT AND FLUSHES WELL. G-TUBE FEEDING OF JEVITY 1.2 @ 70 ML/HR. G-TUBE IN PLACE, NO RESIDUAL, INTACT AND FLUSHES WELL. PATIENT HAS CONDOM CATH IN PLACE AND DRAINING WITH YELLOW COLORED URINE, NO HEMATURIA AND NO SEDIMENTATION NOTED. HOB KEPT ELEVATED. BED LOCKED AND IN LOWEST POSITION. CALL LIGHT WITHIN REACH. ALL SAFETY MEASURES IMPLEMENTED.
[2021-12-29 07:53] LABS: BASOPHILS % (AUTO) 0.1 % (0.0-2.0); EOSINOPHILS % (AUTO) 0.8 % (0.0-6.0); HEMATOCRIT 27 % (39-51); HEMOGLOBIN 8.1 g/dL (13.5-17.5); LYMPHOCYTES # (AUTO) 0.9 K/uL (0.8-4.8); LYMPHOCYTES % (AUTO) 9.5 % (20.0-44.0); MEAN CORPUSCULAR HGB CONC 30 g/dl (31.0-36.0); MEAN CORPUSCULAR VOLUME 92 fL (80-96); MONOCYTES # (AUTO) 0.6 K/uL (0.1-1.30); MONOCYTES % (AUTO) 6.4 % (2.0-12.0); NEUTROPHILS # (AUTO) 7.8 K/uL (1.8-8.9); NEUTROPHILS % (AUTO) 83.2 % (43.0-81.0); PLATELET COUNT (AUTO) 189 K/uL (150-450); RED BLOOD CELL COUNT(AUTO) 2.95 MIL/uL (4.5-6.0); WHITE BLOOD COUNT (AUTO) 9.4 K/uL (4.3-11.0)
[2021-12-29 08:00] VITALS: BP 122/67
[2021-12-29] MEDS: DOCUSATE SODIUM LIQ 100 MG/10 ML UDC GT SCH ×2 (08:28→17:25)
[2021-12-29] MEDS: FUROSEMIDE 100 MG/10 ML VIAL IV SCH ×3 (08:28→17:26)
[2021-12-29] MEDS: ASPIRIN 81 MG TAB.CHEW GT SCH (08:28)
[2021-12-29] MEDS: CHOLECALCIFEROL 1,000 UNIT TABLET (VIT D3) GT SCH (08:28)
[2021-12-29] MEDS: PANTOPRAZOLE 40 MG/PACK PACK GT SCH (08:28)
[2021-12-29] MEDS: THIAMINE HCL 100 MG TABLET GT SCH (08:29)
[2021-12-29] MEDS: METOPROLOL TARTRATE 50 MG TABLET GT SCH ×2 (08:29→17:00)
[2021-12-29] MEDS: ASCORBIC ACID 500 MG TABLET GT SCH (08:29)
[2021-12-29] MEDS: MULTIVITAMINS,THERAGRAN 1 UDTAB TABLET GT SCH (08:30)
[2021-12-29] MEDS: APIXABAN 5 MG TABLET PO SCH ×2 (08:35→17:00)
[2021-12-29] MEDS: CEFEPIME 2 GM in IV D5W 100 ML IV SCH ×2 (08:36→20:09)
[2021-12-29] MEDS: DIGOXIN ELIX UDC 0.25 MG/5 ML UDC GT SCH (12:28)
[2021-12-29 16:00] VITALS: BP 120/66
--- NOTE | 2021-12-29 17:00 | NUR ---
RN NOTE Addendum 1700 ELEQUIS HELD DUE TO PATIENT BLEEDING AFTER DEEP SUCTION. MADE AWARE.
--- NOTE | 2021-12-29 18:46 | NUR ---
MED SURGE RN CLOSE NOTE: ALERT TO NAME. ON O2 3LPM NC. IV ON LEFT FOREARM 20G SALINE LOCKED. PATENT WITH NO S/S OF COMPLICATIONS. GT IN PLACE PATENT NO RESIDUAL. ON JEVITY 1.2 70ML/HR. HOB ELEVATED. ASPIRATION PRECAUTIONS MAINTAINED. SUCTIONED ORAL SECRETIONS. TURNED AND REPOSITIONED. CONDOM CATH DRAINING 3900 YELLOW URINE. BILATERAL HALF SIDE RAILS UP X2. BED IS LOCKED, EXIT ALARM ON, IN LOW POSITION, CALL LIGHT WITHIN REACH. KEPT CLEAN AND COMFORTABLE. WILL ENDORSE TO PIANO TEACHER FOR NINO
--- NOTE | 2021-12-29 20:03 | NUR ---
ASSOCIATE PROFESSOR OF SURGERY OPENING NOTE ALERT TO NAME ON O2 3LPM NC, IV ON LEFT FOREARM 20G SALINE LOCKED. PATENT WITH NO S/S OF COMPLICATIONS. GT IN PLACE PATENT NO RESIDUAL. ON JEVITY 1.2 70ML/HR. HOB ELEVATED. ASPIRATION PRECAUTIONS MAINTAINED. TURNED AND REPOSITIONED. CONDOM CATH DRAINING YELLOW URINE BY GRAVITY. BILATERAL HALF SIDE RAILS UP X2. BED IS LOCKED, EXIT ALARM ON, IN LOW POSITION, CALL LIGHT WITHIN REACH. KEPT CLEAN AND COMFORTABLE.
[2021-12-29 20:27] VITALS: BP 128/69
[2021-12-29] MEDS: ATORVASTATIN 40 MG TABLET GT SCH (21:47)
[2021-12-30] MEDS: DILTIAZEM HCL 30 MG TABLET GT SCH ×3 (00:21→12:11)
[2021-12-30 01:19] VITALS: BP 125/69
[2021-12-30] MEDS: POLYVINYL ALCOHOL 15 ML BOTTLE OP SCH (05:22)
[2021-12-30 05:35] VITALS: BP 106/54
[2021-12-30 06:30] LABS: BASOPHILS % (AUTO) 0.1 % (0.0-2.0); EOSINOPHILS % (AUTO) 1.3 % (0.0-6.0); HEMATOCRIT 29 % (39-51); HEMOGLOBIN 8.8 g/dL (13.5-17.5); LYMPHOCYTES # (AUTO) 0.8 K/uL (0.8-4.8); LYMPHOCYTES % (AUTO) 9.3 % (20.0-44.0); MEAN CORPUSCULAR HGB CONC 31 g/dl (31.0-36.0); MEAN CORPUSCULAR VOLUME 90 fL (80-96); MONOCYTES # (AUTO) 0.5 K/uL (0.1-1.30); MONOCYTES % (AUTO) 5.5 % (2.0-12.0); NEUTROPHILS # (AUTO) 7.2 K/uL (1.8-8.9); NEUTROPHILS % (AUTO) 83.8 % (43.0-81.0); PLATELET COUNT (AUTO) 193 K/uL (150-450); RED BLOOD CELL COUNT(AUTO) 3.22 MIL/uL (4.5-6.0); WHITE BLOOD COUNT (AUTO) 8.6 K/uL (4.3-11.0)
--- NOTE | 2021-12-30 06:35 | NUR ---
HANDICRAFT OR HOBBY SHOP MANAGER CLOSING NOTE ALERT TO NAME ON O2 3LPM NC, IV ON LEFT FOREARM 20G SALINE LOCKED. PATENT WITH NO S/S OF COMPLICATIONS. GT IN PLACE PATENT NO RESIDUAL. ON JEVITY 1.2 70ML/HR. HOB ELEVATED. ASPIRATION PRECAUTIONS MAINTAINED. TURNED AND REPOSITIONED. CONDOM CATH DRAINING YELLOW URINE BY GRAVITY. BILATERAL HALF SIDE RAILS UP X2. BED IS LOCKED, EXIT ALARM ON, IN LOW POSITION, CALL LIGHT WITHIN REACH. KEPT CLEAN AND COMFORTABLE. WILL ENDORSE CARE TO DAY SHIFT NURSE.
[2021-12-30 06:39] LABS: ALANINE AMINOTRANSFERASE 27 U/L (12-78); ALBUMIN 2.8 g/dL (3.4-5.0); ALKALINE PHOSPHATASE 111 U/L (46-116); ASPARTATE AMINOTRANSFERASE 18 U/L (15-37); BILIRUBIN,TOTAL 1.3 mg/dL (0.2-1.0); CALCIUM, SERUM 8.9 mg/dL (8.5-10.1); CARBON DIOXIDE 35 mmol/L (21-32); CHLORIDE 108 mmol/L (98-107); CREATININE 1.1 mg/dL (0.6-1.3); GLUCOSE 138 mg/dL (74-106); MAGNESIUM 2.5 mg/dL (1.8-2.4); POTASSIUM 3.7 mmol/L (3.5-5.1); SODIUM SERUM 148 mmol/L (136-145); TOTAL PROTEIN, SERUM 7.7 g/dL (6.4-8.2); UREA NITROGEN, BLOOD 59 mg/dL (7-18)
--- NOTE | 2021-12-30 07:14 | NUR ---
ELECTROPLATER AUTOMATIC OPENING NOTE RECEIVED ALERT TO NAME AND LIGHT PAIN. ON O2 3LPM NC, IV ON RIGHT FOREARM 20G SALINE LOCKED. PATIENT WITH NO S/S OF COMPLICATIONS. ON JEVITY 1.2 70ML/HR. HOB ELEVATED. ASPIRATION PRECAUTIONS MAINTAINED. CONDOM CATH DRAINING YELLOW URINE BY GRAVITY. BILATERAL HALF SIDE RAILS UP X2. BED IS LOCKED, EXIT ALARM ON, IN LOW POSITION, CALL LIGHT WITHIN REACH.
[2021-12-30 08:00] VITALS: BP 110/59
[2021-12-30] MEDS: PANTOPRAZOLE 40 MG/PACK PACK GT SCH (08:23)
[2021-12-30] MEDS: MULTIVITAMINS,THERAGRAN 1 UDTAB TABLET GT SCH (08:23)
[2021-12-30] MEDS: THIAMINE HCL 100 MG TABLET GT SCH (08:24)
[2021-12-30] MEDS: METOPROLOL TARTRATE 50 MG TABLET GT SCH (08:24)
[2021-12-30] MEDS: ASCORBIC ACID 500 MG TABLET GT SCH (08:24)
[2021-12-30] MEDS: CHOLECALCIFEROL 1,000 UNIT TABLET (VIT D3) GT SCH (08:24)
[2021-12-30] MEDS: ASPIRIN 81 MG TAB.CHEW GT SCH (08:24)
[2021-12-30] MEDS: APIXABAN 5 MG TABLET PO SCH (08:26)
[2021-12-30] MEDS: DOCUSATE SODIUM LIQ 100 MG/10 ML UDC GT SCH (08:26)
[2021-12-30] MEDS: CEFEPIME 2 GM in IV D5W 100 ML IV SCH (08:28)
--- NOTE | 2021-12-30 08:30 | NUR ---
RN NOTE PER DR. CARO ALBRIGHT TO RESUME ELIQUIS.
[2021-12-30] MEDS ORDERED: FURO-144 PO ×2 (08:36→08:39)
[2021-12-30] MEDS ORDERED: SPIR50TA PO (08:38)
[2021-12-30] MEDS ORDERED: SPIRONOLACTONE 25 MG TABLET PO SCH (09:00)
--- NOTE | 2021-12-30 11:52 | NUR ---
RN NOTE CALLED PARAS ARMSTRONG @[id number] SPOKE TO GYPSY TRAYLOR PATIENT DC INSTRUCTIONS GIVEN.
[2021-12-30 12:11] VITALS: BP 114/72
[2021-12-30] MEDS: DIGOXIN ELIX UDC 0.25 MG/5 ML UDC GT SCH (12:13)
--- NOTE | 2021-12-30 12:46 | NUR ---
RN NOTES PATIENT IS BEING LIBRARY ACQUISITIONS TECHNICIAN BY EMT'S DISCHARGING TO [facility], GAVE REPORTS, NO FURTHER QUESTION. PATIENT IS ON STABLE CONDITION.
== END 2021-12-30 12:46 | DRG 871 ==
LOC: ER 22:47 → TELE-TD 12-20 02:54 → TELE1 12-23 08:38 → MEDSG1 12-25 07:52
PROVIDERS: ADMIT Nurse Practitioner Acute Care; ATTEND Internal Medicine
DX: A41.50 Gram-negative sepsis, unspecified (principal); G92.8 Other toxic encephalopathy; I21.A1 Myocardial infarction type 2; J96.01 Acute respiratory failure with hypoxia; I50.23 Acute on chronic systolic (congestive) heart failure; J15.6 Pneumonia due to other Gram-negative bacteria; N17.0 Acute kidney failure with tubular necrosis; D68.59 Other primary thrombophilia; E44.0 Moderate protein-calorie malnutrition; E87.1 Hypo-osmolality and hyponatremia; E87.2 Acidosis; J98.11 Atelectasis; N39.0 Urinary tract infection, site not specified; I42.9 Cardiomyopathy, unspecified; E87.0 Hyperosmolality and hypernatremia; Z93.1 Gastrostomy status; F03.90 Unspecified dementia, unspecified severity, without behavioral disturbance, psychotic disturbance, mood disturbance, and anxiety; Z86.73 Personal history of transient ischemic attack (TIA), and cerebral infarction without residual deficits; Z95.1 Presence of aortocoronary bypass graft; I25.10 Atherosclerotic heart disease of native coronary artery without angina pectoris; I11.0 Hypertensive heart disease with heart failure; I73.9 Peripheral vascular disease, unspecified; H26.9 Unspecified cataract; H52.4 Presbyopia; Z91.041 Radiographic dye allergy status; Z79.82 Long term (current) use of aspirin; Z79.01 Long term (current) use of anticoagulants; Z79.899 Other long term (current) drug therapy; D63.8 Anemia in other chronic diseases classified elsewhere; E78.5 Hyperlipidemia, unspecified; E87.6 Hypokalemia; R73.9 Hyperglycemia, unspecified; E88.09 Other disorders of plasma-protein metabolism, not elsewhere classified; I48.91 Unspecified atrial fibrillation; R13.10 Dysphagia, unspecified; Z20.822 Contact with and (suspected) exposure to COVID-19; Z51.5 Encounter for palliative care; Z66 Do not resuscitate; Z87.891 Personal history of nicotine dependence; Z79.890 Hormone replacement therapy; E03.9 Hypothyroidism, unspecified; F09 Unspecified mental disorder due to known physiological condition; F32.A Depression, unspecified; I48.0 Paroxysmal atrial fibrillation; K59.00 Constipation, unspecified; Y95 Nosocomial condition
CPT/HCPCS: 31720; 36415; 36600; 71045-TC; 80048-TC; 80053-TC; 80061-TC; 80076-TC; 81001; 83605-TC; 83735-TC; 84100-TC; 84439-TC; 84443-TC; 84484-TC; 85025-TC; 85730-TC; 87040-TC; 87081-TC; 87086-TC; 87186-TC; 93307-TC; 94799-TC; A4349; A6253; A6403; C9803; G0378; J0456; J0692; J0696; J1100; J1940; J3370; J3480; J7030; J7050; J7060; U0003